=== PATIENT | male | born 1955 | race Caucasian/White ===

== ENCOUNTER 2023-09-28 02:46 | Outpatient (CLI) | payer MEDICARE, SELFPAY ==
--- OUTSIDE RECORDS SUMMARY | 2023-09-28 02:47 | XMS_ITS | Clinical Summary ---
Author Organization [facility] Address [address] [place] [address] Care Team Providers Care Superintendent Oil Field Drilling Name Role Phone Unknown, Provider MD Primary Care Provider Allergies Active Allergy Reactions Criticality Noted Date Comments [place] 12/02/2019 Other reaction(s): Facial swelling, Itchy eyes Shellfish Derived High 06/14/2017 Other reaction(s): itchy mouth, swelling CIS - Anaphylaxis Medications Medication Sig Dispensed Refills Start Date End Date Status omeprazole (PRILOSEC) 20 mg capsule Take 1 Capsule by mouth daily. Active zinc sulfate (ZINCATE) 50 mg zinc (220 mg) capsule Take 1 Capsule by mouth daily. Active Turmeric, Bulk, (CURCUMIN) 95 % powder Ac tive sildenafiL (REVATIO) 20 mg tablet Take by mouth as needed. 11/23/2020 Active multivitamin (TAB-A-GILMER) tablet Take 1 Tablet by mouth daily. Active Lysine 500 mg tablet Take 1 tab daily Active Lactobacillus acidophilus 10 billion cell capsule Take by mouth. Active Cholecalciferol, Vitamin D3, 25 mcg (1,000 unit) capsule Take by mouth. 11/23/2020 Active Active Problems No known active problems Encounters Date Type Department Care Team Description 08/23/2023 14:30 EDT Office Visit [facility] General Surgery - Main [address] [phone] Usama Garrett MD Left inguinal hernia (Primary Dx) from Last 3 Months Immunizations Name Administration Dates Next Due Covid-19 Ad26 Vaccine (JANSS EN COVID-19) PF 0.5 ml IM (18 yrs+) 11/24/2020 Surgical History Surgery Date Site/Laterality Comments UPPER GI ENDOSCOPY TONSILLECTOMY Medical History Medical History Date Comments Folrence esophagus GERD (gastroesophageal reflux disease) Family History Medical History Relation Comments Arthritis Mother Cancer Mother Depression Mother Relation Status Comments Mother Social History Tobacco Use Types Packs/Day Years Used Date Smoking Tobacco: Former Smokeless Tobacco: Never Tobacco Cessation:Counseling Given: Not Answered Alcohol Use Standard Drinks/Week Comments Yes 0 (1 standard drink = 0.6 oz pur e alcohol) reg Interpersonal Safety Answer Date Record ed Physically Hurt Never 10/06/2019 Verbally Threaten Not on file 10/06/2019 Sex and Gender Information Value Date Recorded Sex Assigned at Not on file Gender Identity Not on file Sexual Orientation Not on file Obstetrics History Last Filed Vital Signs Vital Sign Reading Time Taken Comments Blood Pressure 130/80 08/23/2023 1409 EDT Pulse 60 08/23/2023 1409 EDT Temperature 36.7 ??C (98 ??F) 06/13/2021 0913 EDT Respiratory Rate 18 06/13/2021 0913 EDT Oxygen Saturation 97% 06/13/2021 0913 EDT Inhaled Oxygen Concentration - - Weight 111.1 kg (245 lb) 08/23/2023 1409 EDT Height 177.8 cm (5' 10) 03/30/2022 1054 EST Body Mass Index 35.15 03/30/2022 1054 EST Plan of Treatment Health Maintenance Due Date Last Done Comments Hepatitis C Screen 1955 RSV Immunization ( o r 60+ Years) (1 - 1-dose 60+ series) 2017 Fall Risk Screening 2022 COVID-19 Vaccine ( season) 2022 Care Teams Superintendent Oil Field Drilling Relationship Specialty Start Date End Date Unknown, Provider, PCP - General 04/26/23
--- OUTSIDE RECORDS SUMMARY | 2023-09-28 02:47 | XMS_ITS | Encounter Summary ---
Author Organization [facility] Address [facility] [place] [address] Care Team Providers Care Supervisor Operations Name Role Phone Brandin Koenig MD Primary Care Provider [phone] Reason for Visit * Reason Onset Date Comments Results 10/19/2011 Encounter Details Date Type Department Care Team (Late st Contact Info) Description 10/19/2011 [place] [id number] Lorenzo James MD [facility] DR [place] [address] Results Social History Tobacco Use Types Packs/Day Years Used Date Smoking Tobacco: Former Alcohol Use Standard Drinks/Week Comments Yes 0 (1 standard drink = 0.6 oz pur e alcohol) occasionally Sex and Gender Information Value Date Recorded Sex Assigned at Not on file Gender Identity Not on file Sexual Orientation Not on file documented as of this encounter Miscellaneous Notes * Telephone Encounter - Lorenzo James MD - 10/19/2011 11:45 AM EDT Called Mr. Cazares to discuss his path results - indefinite for dysplasia. Will repeat the EGD for surveillance in 1 year documented in this encounter Plan of Treatment Not on file documented as of this encounter Visit Diagnoses Not on filedocumented in this encounter Care Teams Supervisor Operations Relationship Specialty Start Date End Date Brandin Koenig MD [address] [place] [address] PCP - General 01/26/10 09/30/19 documented as of this encounter
--- OUTSIDE RECORDS SUMMARY | 2023-09-28 02:47 | XMS_ITS | Referral Summary ---
Author Organization [facility] Address [address] [place] [address] Care Team Providers Care Refrigeration Lead Name Role Phone Unknown, Provider MD Primary Care Provider Encounters Date Type Department Care Team Description 08/23/2023 14:30 EDT Office Visit [facility] General Surgery - [address] [phone] Usama Garrett MD Left inguinal hernia (Primary Dx) from Last 3 Months Allergies Active Allergy Reactions Criticality Noted Date Comments [place] 12/02/2019 Other reaction(s): Facial swelling, Itchy eyes [...] Active Active Problems No known active problems Immunizations Name Administration Dates Next Due Covid-19 Ad26 Vaccine (JANSS EN COVID-19) PF 0.5 ml IM (18 yrs+) 11/24/2020 Social History Tobacco Use Types Packs/Day Years [...] on file Sexual Orientation Not on file Last Filed Vital Signs Vital Sign Reading Time Taken Comments Blood Pressure 130/80 08/23/2023 1409 EDT Pulse 60 08/23/2023 1409 EDT Temperature 36.7 ??C (98 ??F) 06/13/2021 0913 EDT Respiratory Rate 18 06/13/2021 0913 EDT Oxygen Saturation 97% 06/13/2021 09 EDT Inhaled Oxygen Concentration - - Weight 111.1 kg (245 lb) 08/23/2023 1409 EDT Height 177.8 cm (5' 10) 03/30/2022 1054 EST Body Mass Index 35.15 03/30/2022 1054 EST Functional Status Functional Status Response Date of Assess ment Because of a physical, menta l, or emotional condition, does this person have difficulty doing errands alone such as visiting a doctor's office or shopping? No 08/23/2023 Cognitive Status Response Date of Assessm ent Because of a physical, menta l, or emotional condition, does this person have serious difficulty concentrating, remembering, or making decisions? No 08/23/2023 Plan of Treatment Not on file Remy Cazares Personal/Family Self 1955 [facility] [place] [address] Remy Cazares Personal/Family Self 1955 [facility] [place] [address] Remy Cazares Personal/Family Self 1955 [facility] [place] [address] Remy Cazares Personal/Family Self 1955 [facility] [place] [address] Remy Cazares Personal/Family Self 1955 [facility] [place] [address] Care Teams Refrigeration Lead Relationship Specialty Start Date End Date Unknown, Provider, PCP - General 04/26/23
--- OUTSIDE RECORDS SUMMARY | 2023-09-28 02:47 | XMS_ITS | Encounter Summary ---
Author Organization [facility] Address [facility] [place] [address] Care Team Providers Care Motorcycle Repairer Name Role Phone Sheree Marcano MD Primary Care Provider [phone] Encounter Details Date Type Department Care Team (Late st Contact Info) Description 09/15/2009 Orders [place] [address] Yossi Copeland MD [facility] DR [place] [address] Social History Tobacco Use Types Packs/Day Years Used Date Smoking Tobacco: Never Assessed Sex and Gender Information Value Date Recorded Sex Assigned at Not on file Gender Identity Not on file Sexual Orientation Not on file documented as of this encounter Plan of Treatment Not on file documented as of this encounter Procedures Procedure Name Priority Date/Time Associated Diagnosis Comments SURGICAL PATHOLOGY REPORT Routine 09/15/2009 6:48 PM EDT documented in this encounter Results * Surgical Pathology Report (09/15/2009 6:48 PM EDT) Surgical Pathology Report [id number] ? Location: 4T The signing pathologist has (i) examined the relevant preparation(s) for the specimen(s) and (ii) rendered or confirmed the diagnosis(es). . ?Pathology Surgical Pathology Final Report Clinical Information Specimen Submitted: A - Esophagus 39 to 38 cm; Distal esophagus B - Esophagus 37 to 35 cm; Esophagus Clinical History: Florence's Clinical Diagnosis: Screening, Florence's, GERD Gross Description A - Labeled/Fixativ e: 1 esophagus 39-38 cm distal esophagus, formalin. Qty/Size/Weight : ?Fourteen, ranging from 0.2 cm to 0.5 cm in greatest ?dimension. Tissue Description: ?? Soft, harrington tissues. Sections/Proces sing: ??(T4) B - Labeled/Fixativ e: 2 esophagus 37-35 cm esophagus, formalin. Qty/Size/Weight : ?Ten, ranging from 0.2 cm to 0.4 cm in greatest ?dimension. Tissue Description: ?? Soft, red-harrington tissues. Sections/Proces sing: ??(T3) ??aje/CJL Microscopic Description Slides reviewed, microscopic description not recorded. 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 ??No dysplasia is seen. 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 ??No dysplasia is seen. CR-0 09/18/09 JLK 09/18/09 Verified by: ? Wilfrido Singletary MD ?Pathologist ?(Electronic Signature) The attending pathologist whose signature appears on this report has reviewed all diagnostic slides and has edited the gross and/or microscopic portion of the report in rendering the final pathologic diagnosis. [facility] 09/15/2009 6:48 PM EDT Yossi Puri MD PATHOLOGY/CYTOLO GY ORDERABLES Performing Organization Address City/State/[facility] Co [place] Phone Number [facility] documented in this encounter Visit Diagnoses Not on filedocumented in this encounter Care Teams Motorcycle Repairer Relationship Specialty Start Date End Date Sheree Marcano MD [address] [place] [address] PCP - General Family Medicine 10/01/19 documented as of this encounter
--- OUTSIDE RECORDS SUMMARY | 2023-09-28 02:47 | XMS_ITS | Encounter Summary ---
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 [address] EGD WITH BIOPSY (WRVU 2.39) Social History Tobacco Use Types Packs/Day Years Used Date Smoking Tobacco: Former Smokeless Tobacco: Never Tobacco Cessation:Counseling Given: Not Answered Alcohol Use Standard Drinks/Week Comments Not Currently 1 (1 standard drink = 0.6 oz pur e alcohol) 4-5 per month Sex and Gender Information Value Date Recorded Sex Assigned at Not on file Gender Identity Not on file Sexual Orientation Not on file documented as of this encounter Last Filed Vital Signs Vital Sign Reading Time Taken Comments Blood Pressure 136/81 06/07/2022 1:40 PM EDT Pulse 66 06/07/2022 1:40 PM EDT Temperature 36.3 ??C (97.3 ??F) 06/07/2022 11:54 AM E DT Respiratory Rate 14 06/07/2022 1:40 PM EDT Oxygen Saturation 99% 06/07/2022 1:40 PM EDT Inhaled Oxygen Concentration - - Weight 95.3 kg (210 lb) 06/07/2022 11:54 AM EDT Height 177.8 cm (5' 10) 06/07/2022 11:54 AM EDT Body Mass Index 30.13 06/07/2022 11:54 AM EDT documented in this encounter Discharge Instructions * Discharge Instructions* Wanda Mooney RN - 06/07/2022 1:55 PM EDT Upper GI Endoscopy: What to Expect at Home Your Recovery You will be able to go home after your doctor or nurse checks to make sure you are not having any problems. You may have to stay overnight if you had treatment during the test. You may have a sore throat fora day or two after the test. This care sheet gives you a general idea about what to expect after the test. How can you care for yourself at home? Activity Rest when you feel tired. You can do your normal activities when it feels okay to do so. Diet Follow your doctor's directions for eating. Unless your doctor has told you not to, drink plenty of fluids. This helps to replace the fluids that were lost during the prep. Do not drink alcohol. Medicines Your doctor will tell you if and when you can restart your medicines. He or she will also give you instructions about taking any new medicines. If you take blood thinners, such as warfarin (Coumadin), clopidogrel (Plavix), or aspirin, be sure to talk to your doctor. He or she will tell you if and when to start taking those medicines again. Make sure that you understand exactly what your doctor wants you to do. If polyps were removed or a biopsy was done during the test, your doctor may tell you not to take aspirin or other anti-inflammatory medicines for a few days. These include ibuprofen (Advil, Motrin) and naproxen (Aleve). If you have a sore throat the day after the procedure, use an tyzz-jhv-rhpfyub spray to numb your throat. Sucking on throat lozenges and gargling with warm salt water may also help relieve your symptoms. Other instructions For your safety, do not drive or operate machinery until the medicine wears off and you can think clearly. Your doctor may tell you not to drive or operate machinery until the day after your test. Do not sign legal documents or make major decisions until the medicine wears off and you can think clearly. The anesthesia can make it hard for you to fully understand what you are agreeing to. Additional Information for Sedation Patients For patients who received sedation: You may have received medications before and/or during your procedure which effects your judgement and reaction time. Do not drive, operate machinery, drink alcoholic beverages or make important decisions for 24 hours. Be careful on stairs as you may be unsteady on your feet. You may eat a regular diet as tolerated. Do not smoke if you are alone. IV site: Slight redness or tenderness is normal, you can use a warm compress if you would like. If tenderness and/or redness increase or if foul drainage occurs, please contact your Doctor. Please call [phone] before 8pm Mon-Fri with problems, questions or concerns. If you call after 8pm or on weekends, call the Hospital at [phone] and ask to speak to the Security Patrol Driver title i instructional assistant and the motion picture operator will contact that person for you. When should you call for help? Call [phone] anytime you think you may need emergency care. For example, call if: You passed out (lost consciousness). You pass maroon or bloody stools. You have trouble breathing. Call your doctor now or seek immediate medical care if: You have pain that does not get better after you take pain medicine. You are sick to your stomach or cannot drink fluids. You have new or worse belly pain. You have blood in your stools. You have a fever. You cannot pass stools or gas. Watch closely for changes in your health, and be sure to contact your doctor if you have any problems. Where can you learn more? [email or web address] View your After Visit Summary and more online at [email or web address] If you would like to provide feedback about your hospital experience, please call the Office of Patient and Family Relations at . If you have received this After Visit Summary in error, please immediately return it in person to the department, or notify the [facility] Privacy Office by calling toll free at between the hours of 8AM and 5PM to arrange for our retrieval of the documents at no cost to you. Content Version: 12.2 ?? [id number] [employer]. Care instructions adapted under license by [facility]. If you have questions about a medical condition or this instruction, always ask your healthcare professional. [employer] disclaims any warranty or liability for your use of this information. * Patient Instructions* Rehana Copeland MD - 06/07/2022 1:44 PM EDT Please see Recommendations in the Provation procedure report which is documented in the procedural note in E-DH. documented in this encounter Medications at Time of Discharge Medication Sig Dispensed Refills Start Date End Date vvytkyl-hnzr-hbipo-oreg-ca pryl 100 mg-150 mg- 50 mg-150 mg Capsule Take by mouth. multivitamin (THERAGRAN) Tablet Take 1 tablet by mouth daily. zinc sulfate (ZINCATE) 220 (50) mg Capsule Take 220 mg by mouth daily. omeprazole (PRILOSEC OTC) 20 mg tablet 09/15/2009 documented as of this encounter H&P Notes * Rehana Copeland MD - 06/07/2022 1:15 PM EDT Gastroenterology and Hepatology Pre-Procedure History and Physical Exam Procedure: Upper endoscopy Indication: Florence's esophagus, GERD There is no problem list on file for this patient. EXAM: HEENT: Airway examined, oropharynx clear Mallampati Score: I (soft palate, uvula, fauces, tonsillar pillars visible) LUNGS: Clear to auscultation HEART: Regular rate and rhythm, normal S1, S2 ABDOMEN: Normal bowel sounds, soft, non tender, non distended, A/P Proceed with the planned endoscopic procedure. ASA 1 - Normal health patient Sedation Plan: moderate (conscious sedation) Risks and benefits of the procedure explained to the patient. Consent signed. 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 Full procedure note is documented under the Procedure section of eDH. 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 - 06/07/2022 1:44 PM EDT Specimen requisition ordered. ??Separate Pathology report to follow Rehana Puri MD PATHOLOGY/CYTOLO GY ORDERABLES Performing Organization Address [facility] [address] * Specimen to Pathology (06/07/2022 1:44 PM EDT) AP Specimen 06/07/2022 1:44 PM EDT 06/07/2022 1:[address] [facility] - 06/07/2022 1:44 PM EDT Specimen requisition ordered. ??Separate Pathology report to follow Rehana Puri MD PATHOLOGY/CYTOLO GY ORDERABLES Performing Organization Address [facility] de Phone Number [facility] [place] [place] [address] * Surgical Pathology Report (06/07/2022 1:29 PM EDT) Pathologist [facility] FINAL DIAGNOSIS (AP) [id number] ? Location: 4T; 08; A The signing pathologist has (i) examined the relevant preparation(s) for the specimen(s) and (ii) rendered or confirmed the diagnosis(es). . ? Addendum ADDENDUM DISCUSSION A WATS 3D report ( dated 06/14/2022) on specimen C has been received. For the full text of the WATS 3D report(s), please refer to the Chart Review Media tab in the electronic health record (eDH). Electronically signed by: ?Sofiya MORRIS PhD, Brigette Verified: ??08/03/2022 11:11 ??Pathologist Performed at: ??-[facility] Dept. of Pathology, [place] [address] Plug Stitcher: Shari Zapata MD, FCAP, ??CLIA Certificate: [id number] ?Surgical Pathology DIAGNOSIS A - Esophagus biopsies at 37cm-36cm, biopsy (Multiple): - ??Florence's esophagus, negative for dysplasia. B - Esophagus biopsies at 35cm-34cm, biopsy (Multiple): - ??Florence's esophagus, negative for dysplasia. Electronically signed by: ?Gemini MORRIS, [facility] Verified: ??06/27/2022 16:21 ??Pathologist Performed at: ??-[facility] Dept. of Pathology, [place] [address] Plug Stitcher: Shari Zapata MD, AP, ??CLIA Certificate: [id number] SPECIMEN(S) SUBMITTED A - Esophagus biopsies at 37cm-36cm, biopsy (Multiple) B - Esophagus biopsies at 35cm-34cm, biopsy (Multiple) CLINICAL INFORMATION History of Florence's, GERD SPECIMEN PROCESSING A - Labeled/Fixativ e: Esophagus biopsies at 37-36 cm, formalin. Quantity/Size: Multiple, 0.2 cm. Tissue Description: Soft, harrington-pink tissues. Sections/Proces sing: Entirely submitted in 2 cassettes labeled A1-A2. B - Labeled/Fixativ e: Esophagus biopsies at 35-34 cm, formalin. Quantity/Size: Multiple, 0.2-0.4 cm. Tissue Description: Soft, harringtno-pink tissues. Sections/Proces sing: Entirely submitted in 2 cassettes labeled B1-B2. ??pps 08/03/2022 11:[address] [facility] 06/07/2022 1:29 PM EDT Rehana Puri MD PATHOLOGY/CYTOLO GY ORDERABLES [facility] [place] [address] * UPPER GI ENDOSCOPY (06/07/2022 12:46 PM EDT) Pathologist [facility] UPPER GI ENDOSCOPY [facility] Endoscopy ___ Procedure Date: 06/07/2022 12:46 PM ? Patient Name: Remy Cazares ? Date of : 1955 ? Age: 66 ? Order #: [id number] ? Instrument Name: [id number] ? ___ Procedure: ? Upper GI endoscopy Indications: ? Follow-up of gastro-esophageal ? reflux disease, Follow-up of ? Florence's esophagus Providers: ? Rehana Copeland MD, Kristina ? Jeffry Ortega Referring : ?Sheree Curran Martin Medicines: ? Midazolam 4 mg IV, Fentanyl 100 ? micrograms IV, Benzocaine spray Complications: ? No immediate complications. ___ Procedure: ? Pre-Anesthesia Assessment: ? - Prior to the procedure, a History ? and Physical was performed, and ? patient medications, allergies and ? sensitivities were reviewed. The ? patient's tolerance of previous ? anesthesia was reviewed. ? - The risks and benefits of the ? procedure and the sedation options ? and risks were discussed with the ? patient. All questions were ? answered and informed consent was ? obtained. ? - Abdominal Examination: bowel ? sounds present, abdomen soft and ? non-tender, no masses or ? organomegaly noted. ? - CV Examination: normal. ? - Mental Status Examination: alert ? and oriented. ? - Respiratory Examination: clear to ? auscultation. ? - ASA Grade Assessment: I - A ? normal, healthy patient. ? - After reviewing the risks and ? benefits, the patient was deemed in ? satisfactory condition to undergo ? the procedure. ? - The anesthesia plan was to use ? moderate sedation/analgesia ? (conscious sedation). ? - Immediately prior to ? administration of medications, the ? patient was re-assessed for ? adequacy to receive sedatives. ? - Sedation was administered by an ? endoscopy nurse. The sedation level ? attained was moderate. ? - The heart rate, respiratory rate, ? oxygen saturations, blood pressure, ? adequacy of pulmonary ventilation, ? and response to care were monitored ? throughout the procedure. ? - The physical status of the ? patient was re-assessed after the ? procedure. ? The procedure, indications, ? benefits, risks and alternatives ? were explained to the patient. ? Specifically discussed were ? potential complications including, ? but not limited to, bleeding, ? perforation, infection, missing a ? cancer, and adverse medication ? reactions. The Endoscope was ? introduced through the mouth, and ? advanced to the second part of ? duodenum The upper GI endoscopy was ? accomplished without difficulty. ? The patient tolerated the procedure ? well. ? Findings: ? The esophagus and gastroesophageal junction were ? examined with white light and narrow band imaging ? (NBI) from a forward view and retroflexed position. ? There were esophageal mucosal changes secondary to ? established short-segment Florence's disease. These ? changes involved the mucosa at the upper extent of ? the gastric folds (37 cm from the incisors) extending ? to the Z-line (34 cm from the incisors). Mucosa was ? biopsied with a cold forceps for histology. A total ? of 2 specimen bottles were sent to pathology. ? Brushings for cytology were obtained in the distal ? esophagus. ? A small hiatal hernia was found. The proximal extent ? of the gastric folds (end of tubular esophagus) was ? 37 cm from the incisors. The hiatal narrowing was 40 ? cm from the incisors. ? The examined duodenum was normal. ? Moderate Sedation: ? Moderate (conscious) sedation was administered by the ? endoscopy nurse and supervised by the endoscopist. ? The following parameters were monitored: oxygen ? saturation, heart rate, blood pressure, and response ? to care. 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 ? Biopsied. Brushings performed. ? - Small hiatal hernia. ? - Normal examined duodenum. Recommendation: ?- Continue present medications. ? - Await pathology results. ? - Repeat upper endoscopy in 5 years ? for surveillance. ? Attending Participation: ? I personally performed the entire procedure. I was ? present during the intraservice time as documented by ? the sedation RN. ? Rehana Copeland MD 06/07/2022 1:51:43 PM This report has been signed electronically. Number of Addenda: 0 Note Initiated On: 06/07/2022 12:46 PM PROVATION 06/07/2022 12:4 6 PM EDT Sheree Marcano MD GENERAL SURGICAL O RDERABLES PROVATION documented in this encounter Visit Diagnoses Not on filedocumented in this encounter Administered Medications Inactive Administered Medications - up to 3 most recent administrations Medication Order MAR Action Action Date Dose Rate Site benzocaine (Hurricane One) 20% spray (restricted to jin-procedural use) ONCE PRN, Starting on Mon06/07/22 at 1320, Until Mon06/07/22 at 1702, Intra-Operative (Intra-Procedure) Given 06/07/2022 1:20 PM EDT 1 spray fentaNYL (pf) (50 mcg/mL) multi-dose injection ONCE PRN, Starting on 06/07/22 at 1319, Until 06/07/22 at 1702, Intra-Operative (Intra-Procedure), Routine Given 06/07/2022 1:25 PM EDT 25 mcg Given 06/07/2022 1:22 PM EDT 25 mcg Given 06/07/2022 1:19 PM EDT 50 mcg lactated ringers infusion 100 mL/hr, Intravenous, CONTINUOUS, Starting on 06/07/22 at 1215, Until 06/07/22 at 1702, Endoscopy (Day of Procedure) New Bag 06/07/2022 12:07 PM EDT 100 mL/hr 100 mL/hr midazolam (pf) (Versed) (1 mg/mL) multi-dose injection ONCE PRN, Starting on 06/07/22 at 1319, Until 06/07/22 at 1702, Intra-Operative (Intra-Procedure), Routine Given 06/07/2022 1:34 PM EDT 1 mg Given 06/07/2022 1:25 PM EDT 1 mg Given 06/07/2022 1:22 PM EDT 1 mg documented in this encounter Active and Recently Administered Medications Times are shown in EDT. Continuous Medication Order 06/05/2022 06/06/2022 06/07/2022 lactated ringers infusion 100 mL/hr, Intravenous, CONTINUOUS, Starting on 06/07/22 at 1215, Until 06/07/22 at 1702, Endoscopy (Day of Procedure) 1207 (New Bag - Prov ider: Fatemeh Guzman RN) PRN Medication Order 06/05/2022 06/06/2022 06/07/2022 benzocaine (Hurricane One) 20% spray (restricted to jin-procedural use) (CANCELED) ONCE PRN, Starting on 06/07/22 at 1320, Until 06/07/22 at 1702, Intra-Operative (Intra-Procedure) 1320 (Given - Provid er: Kristina Ortega RN) fentaNYL (pf) (50 mcg/mL) multi-dose injection (CANCELED) ONCE PRN, Starting on Mon06/07/22 at 1319, Until Mon06/07/22 at 1702, Intra-Operative (Intra-Procedure), Routine 1319 (Given - Provid er: Kristina Ortega RN)1322 (Given - Provider: Kristina Ortega RN)1325 (Given - Provider: Kristina Ortega RN) midazolam (pf) (Versed) (1 mg/mL) multi-dose injection (CANCELED) ONCE PRN, Starting on Mon06/07/22 at 1319, Until Mon06/07/22 at 1702, Intra-Operative (Intra-Procedure), Routine 1319 (Given - Provid er: Kristina Ortega RN)1322 (Given - Provider: Kristina Ortega RN)1325 (Given - Provider: Kristina Ortega RN)1334 (Given - Provider: Kristina Ortega RN) documented in this encounter Care Teams Chalker Soles Relationship Specialty Start Date End Date Sheree Marcano MD [address] [place] [address] PCP - General Family Medicine 10/01/19 documented as of this encounter
--- OUTSIDE RECORDS SUMMARY | 2023-09-28 02:47 | XMS_ITS | Clinical Summary ---
Author Organization [facility] Address [facility] [place] [address] Care Team Providers Care Rn Call Center Name Role Phone Sheree Marcano MD Primary Care Provider +1- [phone] Allergies Active Allergy Reactions Criticality Noted Date Comments Shellfish Derived High CIS - Anaphylaxis Medications Medication Sig Dispensed Refills Start Date End Date Status omeprazole (PRILOSEC OTC) 20 mg tablet 09/15/2009 Active multivitamin (THERAGRAN) Tablet Take 1 tablet by mouth daily. Active zinc sulfate (ZINCATE) 220 (50) mg Capsule Take 220 mg by mouth daily. Active zpjrzai-abca-ksvav-ore g-capryl 100 mg-150 mg- 50 mg-150 mg Capsule Take by mouth. Active Social History Tobacco Use Types Packs/Day Years [...] Sign Reading Time Taken Comments Blood Pressure 133/73 06/07/2022 1:51 PM EDT Pulse 66 06/07/2022 1:40 PM EDT Temperature 36.3 ??C (97.3 ??F) 06/07/2022 11:54 AM E DT Respiratory Rate 19 06/07/2022 2:00 PM EDT Oxygen Saturation 97% 06/07/2022 1:51 PM EDT Inhaled Oxygen Concentration - - Weight 95.3 kg (210 lb) 06/07/2022 11:54 AM EDT Height 177.8 cm (5' 10) 06/07/2022 11:54 AM EDT Body Mass Index 30.13 06/07/2022 11:54 AM EDT Plan of Treatment Health Maintenance Due Date Last Done Comments CT Colonography 1955 Colonoscopy 1955 Colorectal Cancer Screening 1955 FIT DNA 1955 FIT 1955 Sigmoidoscopy (10 year) with FIT yearly 1955 Sigmoidoscopy 1955 HIV screen 10/29/1975 Hepatitis C Screening 10/29/1975 Lipid Screening 10/29/1975 Tdap adult 1976 Tetanus vaccine 1976 Diabetes Screening (HgbA1C or Glucose) 1997 Zoster vaccine (1 of 2) 10/29/2007 Pneumoccocal Vaccine: 65+ (1 of 1 - PCV) 2022 Covid-19 Vaccine (2 - season) 2022 Influenza (Flu) vaccine (1 o f 1 - Influenza standard series) 11/05/2023 Advance Directives Documents on File Type Date 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
--- OUTSIDE RECORDS SUMMARY | 2023-09-28 02:47 | XMS_ITS | Encounter Summary ---
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 [address] Discharge Disposition: Home Social History Tobacco Use Types Packs/Day Years [...] the day after the procedure, use an kssi-irk-xgbhcuj spray to numb your throat. Sucking on [...] occurs, please contact your Doctor. Please call [phone] before 8pm Mon-Fri with problems, questions or concerns. If you call after 8pm or on weekends, call the Hospital at [phone] and ask to speak to the Street Openings Inspector communications representative and the dowel inserting machine operator will contact that person for you. When should you call for help? Call [phone] anytime you think you may need emergency [...] any problems. Where can you learn more? [facility] View your After Visit Summary and more online at [email or web address] If you would like to provide [...] cost to you. Content Version: 12.2 ?? [id number] [employer]. Care instructions adapted under license by [facility]. If you have questions about a medical condition or this instruction, always ask your healthcare professional. [employer] disclaims any warranty or liability for your use of this information. * Patient Instructions* Yossi Copeland MD - 06/07/2022 1:44 PM EDT Please see Recommendations in the Provation procedure report which is documented in the procedural note in E-DH. documented in this encounter Medications at Time of Discharge Medication Sig Dispensed Refills Start Date End Date wbgjayi-hqaz-euebp-oreg-ca pryl 100 mg-150 mg- 50 mg-150 mg Capsule Take by mouth. multivitamin (THERAGRAN) Tablet Take 1 tablet by mouth daily. zinc sulfate (ZINCATE) 220 (50) mg Capsule Take 220 mg by mouth daily. omeprazole (PRILOSEC OTC) 20 mg tablet 09/15/2009 documented as of this encounter H&P Notes * Yossi Copeland MD - 06/07/2022 1:15 PM EDT [...] encounter Miscellaneous Notes * Op Note - Yossi Copeland MD - 06/07/2022 1:[address] 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 Full procedure note is documented under the Procedure section of eDH. 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 ??Separate Pathology report to follow Yossi Puri MD PATHOLOGY/CYTOLO GY ORDERABLES Performing Organization Address [facility] [place] [address] * Specimen to Pathology (06/07/2022 1:44 PM EDT) AP Specimen 06/07/2022 1:44 PM EDT 06/07/2022 1:44 PM EDT Narrative [facility] - 06/07/2022 1:44 PM EDT Specimen requisition ordered. ??Separate Pathology report to follow Yossi Puri MD PATHOLOGY/CYTOLO GY ORDERABLES Performing Organization Address [facility] de Phone Number [facility] [place] [place] [address] * Surgical Pathology Report (06/07/2022 1:29 PM EDT) Pathologist [facility] FINAL DIAGNOSIS (AP) [id number] ? Location: 4T; EA08; A The signing pathologist has (i) examined [...] Brigette Verified: ??08/03/2022 11:11 ??Pathologist Performed at: ??-[facility] Dept. of Pathology, [place] [address] Controls Engineer: Shari Zapata MD, FCAP, ??CLIA Certificate: [id number] ?Surgical Pathology DIAGNOSIS A - Esophagus biopsies at 37cm-36cm, biopsy (Multiple): - ??Florence's esophagus, negative for dysplasia. B - Esophagus biopsies at 35cm-34cm, biopsy (Multiple): - ??Florence's esophagus, negative for dysplasia. Electronically signed by: ?Wilfrido Singletary MD Verified: ??06/27/2022 16:21 ??Pathologist Performed at: ??-[facility] Dept. of Pathology, [place] [address] Controls Engineer: Shari Zapata MD, SONJA, ??CLIA Certificate: [id number] SPECIMEN(S) SUBMITTED A - Esophagus biopsies at [...] Quantity/Size: Multiple, 0.2-0.4 cm. Tissue Description: Soft, harrington-pink tissues. Sections/Proces sing: Entirely submitted in 2 cassettes labeled B1-B2. ??pps 08/03/2022 11:11 AM EDT [facility] 06/07/2022 1:29 PM EDT Yossi Puri MD PATHOLOGY/CYTOLO GY [place] [address] * UPPER GI ENDOSCOPY (06/07/2022 12:46 PM EDT) UPPER GI ENDOSCOPY [facility] Endoscopy ___ Procedure Date: 06/07/2022 12:46 PM ? Patient Name: Remy Cazares ? Date of : 1955 ? Age: 66 ? Order #: [id number] ? Instrument Name: [id number] ? ___ Procedure: ? Upper GI endoscopy Indications: ? Follow-up of gastro-esophageal ? reflux disease, Follow-up of ? Florence's esophagus Providers: ? Yossi Copeland MD, Kristina ? Jeffry Ortega Referring : ?Sheree Curran [place] Medicines: ? Midazolam 4 mg IV, Fentanyl [...] documented by ? the sedation RN. ? Yossi Copeland MD 06/07/2022 1:51:43 PM This report [...] MAR Action Action Date Dose Rate Site lactated ringers infusion 100 mL/hr, Intravenous, CONTINUOUS, Starting on Mon06/07/22 at 1215, Until Mon06/07/22 at 1702, Endoscopy (Day of Procedure) New Bag 06/07/2022 12:07 PM EDT 100 mL/hr 100 mL/hr documented in this encounter Active and Recently Administered Medications Times are shown in EDT. Continuous Medication Order 06/05/2022 06/06/2022 06/07/2022 lactated ringers infusion 100 mL/hr, Intravenous, CONTINUOUS, Starting on Mon06/07/22 at 1215, Until Mon06/07/22 at 1702, Endoscopy (Day of Procedure) 1207 (New Bag - Prov ider: Fatemeh Guzman RN) PRN Medication Order 06/05/2022 06/06/2022 06/07/2022 benzocaine (Hurricane One) 20% spray (restricted to jin-procedural use) (CANCELED) ONCE PRN, Starting on Mon06/07/22 at 1320, Until Mon06/07/22 at 1702, Intra-Operative (Intra-Procedure) 1320 (Given - [...] Kristina Ortega RN)1322 (Given - Provider: Kristina Ortega, RN)1325 (Given - Provider: Kristina Ortega, RN)1334 (Given - Provider: Kristina Ortega RN) documented in this encounter Care Teams Millinery Designer Relationship Specialty Start Date End Date Sheree Marcano MD [address] [place] [id number] PCP - General Family Medicine 10/01/19 documented as of this encounter
--- OUTSIDE RECORDS SUMMARY | 2023-09-28 02:47 | XMS_ITS | Encounter Summary ---
Author Organization [facility] [place] [address] Care Team Providers Care Education Spec Name Role Phone Brandin Koenig MD Primary Care Provider [phone] Encounter Details Date Type Department Care Team (Late st Contact Info) Description 04/15/2019 Telephone [place] [address] Yaneth Bhat Social History Tobacco Use Types Packs/Day Years Used Date Smoking Tobacco: Former Smokeless Tobacco: Never Alcohol Use Standard Drinks/Week Comments Yes 3 (1 standard drink = 0.6 oz pur e alcohol) occasionally Sex and Gender Information Value Date Recorded Sex Assigned at Not on file Gender Identity Not on file Sexual Orientation Not on file documented as of this encounter Miscellaneous Notes * Telephone Encounter - Yaneth Bhat - 04/15/2019 2:28 PM EST Remy Cazares [id number] Diagnosis/Indication: COLO 1. Have you ever had a/an Colonoscopy before? Yes: Date 09/15/09 If yes, did you have any problems with the procedure? No What type of sedation was used: IV Conscious Sedation 2. Do you take any Blood Thinners? No 3. Do you have a Pacemaker or Defibrillator device? No 4. Are you a diabetic? No 5. Do you have any Allergies to Eggs, Latex or Medications? No 6. Do you take any Oral Iron Supplements (Including multi-vitamins)? Yes (Multivitamin) 7. Do you have a history of three or more abdominal surgeries? No 8. Have you had a problem with sedation or anesthesia? No 9. Do you have a c-pap machine or oxygen tank? Neither 10. Do you take prescription narcotic pain medications? No 11. Do you have a preference regarding the gender of your provider? No Preference 12. Is there any other information you would like to give us to aid in scheduling? No 13. Say to patient: You must have a responsible republican who will drive you to your procedure, stay [place] for the entire duration of your procedure, and drive you home from your procedure? Height: 5'11 Weight: 220 BMI: 30.7 Age:63 y.o. documented in this encounter Plan of Treatment Not on file documented as of this encounter Visit Diagnoses Not on filedocumented in this encounter Care Teams Education Spec Relationship Specialty Start Date End Date Brandin Koenig MD [address] [place] [address] PCP - General 01/26/10 09/30/19 documented as of this encounter
--- OUTSIDE RECORDS SUMMARY | 2023-09-28 02:47 | XMS_ITS | Encounter Summary ---
Author Organization [facility] [place] [address] Care Team Providers Care Wind Turbine Mechanic Name Role Phone Sheree Marcano MD Primary Care Provider [phone] Encounter Details Date Type Department Care Team (Late st Contact Info) Description 07/13/2022 External [place] [id number] Provider, Scanning Social History Tobacco Use Types Packs/Day Years Used Date Smoking Tobacco: Former Smokeless Tobacco: Never Alcohol Use Standard Drinks/Week Comments Not Currently [...] Priority Date/Time Associated Diagnosis Comments SURGICAL PATHOLOGY SCAN Routine 07/13/2022 documented in this encounter Results * Scan Doc: Surgical Pathology (07/13/2022) Historical Provider MD OCONNOR MGR SCAN EX T ORDR/RSLT documented in this encounter Visit Diagnoses Not on filedocumented in this encounter Care Teams Wind Turbine Mechanic Relationship Specialty Start Date End Date Sheree Marcano MD [address] [place] [address] PCP - General Family Medicine 10/01/19 documented as of this encounter
--- OUTSIDE RECORDS SUMMARY | 2023-09-28 02:47 | XMS_ITS | Encounter Summary ---
Author Organization [facility] Address [facility] [place] [address] Care Team Providers Care Galley Boy Name Role Phone Brandin Koenig MD Primary Care Provider [phone] Encounter Details Date Type Department Care Team (Late st Contact Info) Description 10/11/2011 1:00 PM EDT - 10/11/2011 1:30 PM EDT Surgery [place] [address] Rehana Copeland MD [facility] [place] [address] UPPER GI ENDOSCOPY Social History Tobacco Use Types Packs/Day Years [...] Sign Reading Time Taken Comments Blood Pressure 110/67 10/11/2011 1:58 PM EDT Pulse 60 10/11/2011 1:58 PM EDT Temperature 36.7 ??C (98.1 ??F) 10/11/2011 12:12 PM E DT Respiratory Rate 16 10/11/2011 1:58 PM EDT Oxygen Saturation 96% 10/11/2011 1:58 PM EDT Inhaled Oxygen Concentration - - Weight - - Height - - Body Mass Index - - documented in this encounter Discharge Instructions * Discharge Instructions* Lucrecia Milian RN - 10/11/2011 2:41 PM EDT You may have received medication before and/or during your procedure which effects judgement and reaction time. Do not drive, operate machinery, drink alcoholic beverages, or make important decisions for 24 hours. Be careful on stairs, as you may be unsteady on your feet. You may eat a regular diet as tolerated. Do not smoke if you are alone. IV site-- slight redness or tenderness is normal. You may use a warm compress. If tenderness and redness increases for foul drainage occurs please contact your M.D. Please call [phone] before 5pm with problems, questions or concerns. After 5pm call [phone] and ask to speak with the [employer] forestry contractor. Discharge instructions reviewed with patient who expresses's understanding. You may have received medication before and/or during your procedure which effects judgement and reaction time. Do not drive, operate machinery, drink alcoholic beverages, or make important decisions for 24 hours. Be careful on stairs, as you may be unsteady on your feet. You may eat a regular diet as tolerated. Do not smoke if you are alone. IV site-- slight redness or tenderness is normal. You may use a warm compress. If tenderness and redness increases for foul drainage occurs please contact your M.D. Please call [phone] before 5pm with problems, questions or concerns. After 5pm call [phone] and ask to speak with the airborne [employer] forestry contractor. Discharge instructions reviewed with patient who expresses's understanding. You may have received medication before and/or during your procedure which effects judgement and reaction time. Do not drive, operate machinery, drink alcoholic beverages, or make important decisions for 24 hours. Be careful on stairs, as you may be unsteady on your feet. You may eat a regular diet as tolerated. Do not smoke if you are alone. IV site-- slight redness or tenderness is normal. You may use a warm compress. If tenderness and redness increases for foul drainage occurs please contact your M.D. Please call [phone] before 5pm with problems, questions or concerns. After 5pm call [phone] and ask to speak with the [employer] forestry contractor. Discharge instructions reviewed with patient who expresses's understanding. * Patient Instructions* Rehana Copeland MD - 10/11/2011 2:01 PM EDT Please see Recommendations in the Provation procedure report which is documented in the procedural note in E-DH. * Attachments The following attachments cannot be sent through Care Everywhere. 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 No new symptoms, GERD well controlled on PPI PMH: GERD --EGD 2009 with 4cm BE, path neg for dysplasia Medications: No current facility-administered medications on file prior to encounter. Current outpatient prescriptions ordered prior to encounter Medication Sig Dispense Refill ??? citalopram (CELEXA) 20 mg tablet ??? zolpidem (AMBIEN) 10 mg tablet ??? omeprazole (PRILOSEC OTC) 20 mg tablet Allergies: Allergies Allergen Reactions ??? Shellfish Derived CIS - Anaphylaxis Social History: Lives in [place], [place]. Works at [employer]. No smoking, drinks 6 drinks a week Family History: No GI issues Exam: Patient Vitals in the past 24 hrs: BP Temp Temp src Pulse Resp SpO2 10/11/11 1212 137/90 mmHg 36.7 ??C (98.1 ??F) Oral 74 16 97 % Airway examined Chest- clear Heart- RRR, nl s1, s2 Abdomen- normal bowel sounds, soft, non tender Assessment and Plan: Pleasant 55M with PMH of BE. Will perform EGD with esophageal biopsies to survey for dysplasia Conscious sedation. Risks and benefits of the procedure were discussed with the patient. Consent has been signed. documented in this encounter Miscellaneous Notes * Miscellaneous - Provider, Scanning - 10/12/2011 5:45 AM EDT * Miscellaneous - Provider, Scanning - 10/11/2011 2:11 PM EDT * Op Note - Rehana Copeland MD - 10/11/2011 2:00 PM EDT [facility] [place] Operative Note Patient Name: Deepa Perera : [id number] MR#: [id number] Case Date: 10/11/2011 Surgeon: Surgeon(s) and Role: * REHANA COPELAND MD - Primary * BRENDA JAMES MD - Fellow Preoperative diagnosis: Florence's - 2 yr fu Postoperative diagnosis: Florence's esophagus Procedure(s): UPPER GI ENDOSCOPY EGD WITH BIOPSY Full procedure note is documented under the Procedure section of eDH. documented in this encounter Plan of Treatment Not on file documented as of this encounter Procedures Procedure Name Priority Date/Time Associated Diagnosis Comments SURGICAL PATHOLOGY REPORT Routine 10/11/2011 4:16 PM EDT SPECIMEN TO PATHOLOGY Routine 10/11/2011 2:01 PM EDT SPECIMEN TO PATHOLOGY Routine 10/11/2011 2:01 PM EDT EGD WITH BIOPSY (WRVU 2.39) 10/11/2011 1:28 PM EDT 2 yr fu [local] UPPER GI ENDOSCOPY 10/11/2011 1: 28 PM EDT 2 yr fu [local] UPPER GI ENDOSCOPY Routine 10/11/2011 1: 22 PM EDT documented in this encounter Results * SURGICAL PATHOLOGY REPORT (10/11/2011 4:16 PM EDT) Surgical Pathology Report ? [facility] ? Provider: ?? REHANA COPELAND ??Pt. Name: ?? DEEPA PERERA ?I ? Acc #: ?[id number] ?Pt. ? Col Date: ?? 10/11/2011 ?/Sex: ?1955,(55 years),Male ? Rec Date: ?? 10/11/2011 ?LOC: ?4T ? SURGICAL PATHOLOGY ? ---Pathologic Diagnosis--- ? Endoscopic biopsies - ? A - Esophagus 38 to 37 cm: ? Florence's esophagus with crypt atypia, consistent with INDEFINITE FOR ? DYSPLASIA (see NOTE). ? Additional deeper levels examined. ? B - Esophagus 36 to 35 cm: ? Florence's esophagus with crypt atypia, consistent with INDEFINITE FOR ? DYSPLASIA (see NOTE). ? Additional deeper levels examined. ? NOTE: Dr. Singletary has kindly reviewed the case (parts A and B) and concurs ? with the above diagnoses of A and B. ? 10/17/11 ? XL ? 10/17/11 Verified by: ? William MORRIS, Candice ? Pathologist ? (Electronic Signature) ? The attending pathologist whose signature appears on this report has ? reviewed all diagnostic slides and has edited the gross and/or ? microscopic portion of the report in rendering the final pathologic ? diagnosis. ? ---Microscopic Description--- ? Slides reviewed, microscopic description not recorded. ? ---Gross Description--- ? A - Labeled/Fixative: Esophagus 38 to 37 cm, formalin. ? Qty/Size/Weight: ?Five, averaging 0.3 x 0.2 x 0.2 cm. ? Tissue Description: ?? Wispy, friable, harrington soft tissues. ? Sections/Processi ng: ??(T1) ? B - Labeled/Fixative: Esophagus 36 to 35 cm, formalin. ? Qty/Size/Weight: ?Five, averaging 0.3 x 0.2 x 0.2 cm. ? Tissue Description: ?? Friable fragments of harrington-pink soft tissue, focally ? hemorrhagic. ? Sections/Processi ng: ??(T1) ??aje/PPS ? [facility] ? Provider: ?? REHANA COPELAND ??Pt. Name: ?? DEEPA PERERA ?I ? Acc #: ?[id number] ?Pt. ? Col Date: ?? 10/11/2011 ?/Sex: ?1955,(55 years),Male ? Rec Date: ?? 10/11/2011 ?LOC: ?4T ? ---Clinical Information--- ? Specimen Submitted: ? SURGICAL PATHOLOGY ? A - Esophagus 38 to 37 cm ? B - Esophagus 36 to 35 cm ? Clinical History/Diagnosis : ? HX of nondysplastic Florence's CINDY ONEIL 10/11/2011 4:16 PM EDT Rehana Puri MD PATHOLOGY/CYTOLO GY ORDERABLES Performing Organization Address [facility] de Phone Number CINDY ONEIL * Specimen to Pathology (surgical or derm) (10/11/2011 2:01 PM EDT) AP Specimen 10/11/2011 2:01 PM EDT 10/11/2011 2:01 PM EDT Narrative CINDY VARELAIUM - 10/11/2011 2:01 PM EDT Specimen requisition ordered. ??Separate Pathology report to follow Rehana Puri MD PATHOLOGY/CYTOLO GY ORDERABLES Performing Organization Address [facility] de Phone Number CINDY ONEIL * Specimen to Pathology (surgical or derm) (10/11/2011 2:01 PM EDT) AP Specimen 10/11/2011 2:01 PM EDT 10/11/2011 2:01 PM EDT Narrative CINDY ONEIL - 10/11/2011 2:01 PM EDT Specimen requisition ordered. ??Separate Pathology report to follow Rehana Puri MD PATHOLOGY/CYTOLO GY ORDERABLES Performing Organization Address [facility] de Phone Number CINDY ONEIL * UPPER GI ENDOSCOPY (10/11/2011 1:22 PM EDT) UPPER GI ENDOSCOPY [facility] Endoscopy Patient Name: Deepa Perera ? Procedure Date: 10/11/2011 1:22 PM ? Date of : 1955 ? Age: 55 ? Order #: [id number] ? Procedure: ? Upper GI endoscopy Indications: ? Follow-up of Florence's esophagus Providers: ? Rehana Copeland MD, Brenda Ortega ? MD Jacob, Rob Hatfield RN, ? Elizabeth Morales, Medication Reconciliation Technician Referring : ?Brandin Koenig MD Medicines: ? Midazolam 4 mg IV, Fentanyl 200 ? micrograms IV, Benzocaine spray Complications: ? No immediate complications. Procedure: ? Pre-Anesthesia Assessment: ? - Prior to the procedure, a History ? and Physical was performed, and ? patient medications, allergies and ? sensitivities have been reviewed. The ? patient's tolerance of previous ? anesthesia has been reviewed. ? - The risks and benefits of the ? procedure and the sedation options ? and risks were discussed with the ? patient. All questions were answered ? and informed consent was obtained. ? - Mental Status Examination: alert ? and oriented. ? - Airway Examination: normal ? oropharyngeal airway and neck ? mobility. ? - Respiratory Examination: clear to ? auscultation. ? - CV Examination: normal. ? - ASA Grade Assessment: II - A ? patient with mild systemic disease. ? - After reviewing the risks and ? benefits, the patient was deemed in ? satisfactory condition to undergo the ? procedure. ? - The anesthesia plan was to use ? moderate sedation/analgesia ? (conscious sedation). ? - Immediately prior to administration ? of medications, the patient was ? re-assessed for adequacy to receive ? sedatives. ? - The heart rate, respiratory rate, ? oxygen saturations, blood pressure, ? adequacy of pulmonary ventilation, ? and response to care were monitored ? throughout the procedure. ? - The physical status of the patient ? was re-assessed after the procedure. ? The procedure, indications, benefits, ? risks and alternatives were explained ? to the patient. Specifically ? discussed were potential ? complications including, but not ? limited to, bleeding, perforation, ? infection, missing a cancer, and ? adverse medication reactions. The ? Endoscope was introduced through the ? mouth, and advanced to the second ? part of duodenum. The patient ? tolerated the procedure well. The ? upper GI endoscopy was accomplished ? without difficulty. ? Findings: ? There were esophageal mucosal changes secondary to ? established short-segment Florence's disease, ? extending from the upper extent of the gastric folds ? which were at 38 cm from the incisors to the Z-line ? which was at 35 cm from the incisors. No visible ? abnormalities were present. Mucosa was biopsied with ? a cold forceps for histology in 4 quadrants at 35 cm ? from the incisors at 36 cm from the incisors at 37 cm ? from the incisors at 38 cm from the incisors. Biopsy ? specimens were sent to Pathology. Estimated blood ? loss was minimal. The stomach was normal. The ? examined duodenum was normal. ? 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 ? - Normal stomach. ? - Normal examined duodenum. ? - Mucosa was biopsied in 4 quadrants ? at 35 cm from the incisors at 36 cm ? from the incisors at 37 cm from the ? incisors at 38 cm from the incisors. Recommendation: ?- Await pathology results. ? - Repeat the upper endoscopy in 3 ? years for surveillance based on ? pathology results. ? - The attending physician listed ? above was present for the entire ? procedure. ? Rehana Copeland MD 10/11/2011 2:05 PM ? Number of Addenda: 0 Note Initiated On: 10/11/2011 1:22 PM PROVATION 10/11/2011 1:22 PM EDT Brandin Koenig MD GENERAL SURGICAL ORD ERABLES PROVATION documented in this encounter Visit Diagnoses Not on filedocumented in this encounter Administered Medications Inactive Administered Medications - up to 3 most recent administrations Medication Order MAR Action Action Date Dose Rate Site benzocaine (HURRICANE) 20 % oral spray CONTINUOUS PRN, Pain, Starting on Mon10/11/11 at 1330, Until Mon10/11/11 at 1707, For Procedural use. Fulton on area for one second. May repeat if necessary. Do not exceed a spray duration of 2 seconds., Intra-Operative (Intra-Procedure) New Bag 10/11/2011 1:30 PM EDT 20 % 20-Other (document in comment section) fentaNYL 50mcg/mL injection ONCE PRN, Starting on Mon10/11/11 at 1330, Until Mon10/11/11 at 1707, Pain, Intra-Operative (Intra-Procedure), Routine Given 10/11/2011 1:36 PM EDT 50 mcg Given 10/11/2011 1:33 PM EDT 50 mcg Given 10/11/2011 1:30 PM EDT 100 mcg midazolam (VERSED) injection ONCE PRN, Starting on 10/11/11 at 1330, Until 10/11/11 at 1707, Sleep, Intra-Operative (Intra-Procedure), Routine Given 10/11/2011 1:36 PM EDT 1 mg Given 10/11/2011 1:33 PM EDT 1 mg Given 10/11/2011 1:30 PM EDT 2 mg sodium chloride 0.9% infusion 50 mL/hr, Intravenous, CONTINUOUS, Starting on 10/11/11 at 1230, Until 10/11/11 at 1707, Endoscopy (Day of Procedure) New Bag 10/11/2011 12:30 PM EDT 50 mL/hr 50 mL/hr documented in this encounter Active and Recently Administered Medications Times are shown in EDT. Continuous Medication Order 10/09/2011 10/10/2011 10/11/2011 sodium chloride 0.9% infusion (CANCELED) 50 mL/hr, Intravenous, CONTINUOUS, Starting on 10/11/11 at 1230, Until 10/11/11 at 1707, Endoscopy (Day of Procedure) 1230 (New Bag - Prov ider: Shasha Ceja RN) PRN Medication Order 10/09/2011 10/10/2011 10/11/2011 benzocaine (HURRICANE) 20 % oral spray (CANCELED) CONTINUOUS PRN, Pain, Starting on 10/11/11 at 1330, Until 10/11/11 at 1707, For Procedural use. Fulton on area for one second. May repeat if necessary. Do not exceed a spray duration of 2 seconds., Intra-Operative (Intra-Procedure) 1330 (New Bag - Prov ider: Rob Hatfield RN - Comment: 8 shots to back of throat) fentaNYL 50mcg/mL injection (CANCELED) ONCE PRN, Starting on 10/11/11 at 1330, Until 10/11/11 at 1707, Pain, Intra-Operative (Intra-Procedure), Routine 1330 (Given - Provid er: Rob Hatfield RN - Comment: start moderate sedation)1333 (Given - Provider: Rob Hatfield RN - Comment: awake after 1st dose and 3 minutes)1336 (Given - Provider: Rob Hatfield RN - Comment: grimmacing and muscle tension) midazolam (VERSED) injection (CANCELED) ONCE PRN, Starting on Mon10/11/11 at 1330, Until Mon10/11/11 at 1707, Sleep, Intra-Operative (Intra-Procedure), Routine 1330 (Given - Provid er: Rob Hatfield RN - Comment: see fentanyl same time)1333 (Given - Provider: Rob Hatfield RN - Comment: see fentanyl same time)1336 (Given - Provider: Rob Hatfield RN - Comment: see fentanyl same time) documented in this encounter Care Teams Galley Boy Relationship Specialty Start Date End Date Brandin Koenig MD [address] [place] [address] PCP - General 01/26/10 09/30/19 documented as of this encounter
--- OUTSIDE RECORDS SUMMARY | 2023-09-28 02:47 | XMS_ITS | Encounter Summary ---
[place] [address] Care Team Providers Care Porcelain Enamel Laborer Name Role Phone Brandin Koenig MD Primary Care Provider [phone] Reason for Visit * Reason Comments Results Encounter Details Date Type Department Care Team (Late st Contact Info) Description 12/12/2012 Telephone [place] [phone] Anya Brown, RN DEPT OF GASTROENTEROLOGY Results Social History Tobacco Use Types Packs/Day [...] encounter Miscellaneous Notes * Telephone Encounter - Anya Dahl RN - 12/12/2012 1:42 PM EDT Pts called requesting endoscopy and biopsy results. Telephoned pt, discussed endoscopy and biopsy results. 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 Pt verbalized understanding. documented in this encounter Plan of Treatment Not on file documented as of this encounter Visit Diagnoses Not on filedocumented in this encounter Care Teams Porcelain Enamel Laborer Relationship Specialty Start Date End Date Brandin Koenig MD [address] [place] [address] PCP - General 01/26/10 09/30/19 documented as of this encounter
--- OUTSIDE RECORDS SUMMARY | 2023-09-28 02:47 | XMS_ITS | Encounter Summary ---
Author Organization [facility] Address [facility] [place] [address] Care Team Providers Care Policy Director Name Role Phone Sheree Marcano MD Primary Care Provider [phone] Encounter Details Date Type Department Care Team (Late st Contact Info) Description 03/24/2022 Telephone Gastroenterology at [facility] [place] [id number] Candy Prasad Social History Tobacco Use Types Packs/Day Years [...] encounter Miscellaneous Notes * Telephone Encounter - Candy Prasad - 03/24/2022 11:38 AM EST Remy Cazares [id number] Diagnosis/Indication: 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 If yes, take note of Anesthesia type used. If previous procedure found, and with MAC/propofol Anesthesia support was used, schedule this procedure with Anesthesia and skip the Anesthesia portion of questions. If not performed within system, not performed at all, or performed with IVCS, ask Anesthesia questions. SCHEDULING QUESTIONS (ask all patient these questions) 1. Have you ever had a/an Upper Endoscopy before? Yes: Date 03/14/2017 If yes, did you have any problems with the procedure (such as waking up during the procedure, pain or difficulties afterwards, etc.)? No What type of sedation was used: IV Conscious Sedation 2. Do you take any blood thinners or have you been diagnosed with a bleeding disorder that increases your risk of bleeding with procedures? No 3. Do you have a Pacemaker or Defibrillator device? If yes, send pool message to Cardiology with patient information and date or procedure. No 4. Are you a diabetic? If yes, call PCP/managing provider to discuss use of prep and any questions or concerns related to. No 5. Do you take any iron supplements or vitamins that contain iron? Yes 6. Do you have a preference regarding the gender of your provider? Yes Min ANESTHESIA QUESTIONS (YES to any question, please book with Anesthesia support) 7. Have you ever been diagnosed with Pulmonary Hypertension and/or Congential Heart Disease? No 8. Have you been diagnosed with A-Fib (atrial fibrillation) that is NOT being well controled with medications? No 9. Have you ever had an allergic or adverse reaction to Fentanyl or Versed? No 10. Have you had a problem with sedation or anesthesia? (Waking up during procedure, extreme confusion after, etc.) No 11. Do you have a diagnosis of Obstructive Sleep Apnea that requires the use of a c-pap machine? No 12. Do you use an oxygen tank at home? No 13. Do you use a rescue inhaler more than twice per day? (COPD, severe asthma) No 14. Do you experience breathing problems when you lay flat for a period of time? No 15. Do you take prescription narcotic pain medications, including suboxone or methodone? No SCHEDULING CONFIRMATIONS: Please note any and all parts of your conversation with the patient here. 16. We offer all new patients an opportunity to have an appointment with one of our associate care providers to learn more about your upcoming procedure, ask questions and get answers. These appointments are offered via telehealth. Would you be interested in scheduling this appointment? (Only ask if NEW referral patient; skip this question if [facility] provider ordered the procedure.) No 17. Is there any other information or concerns you would like to us to share with your care team inrelation to your upcoming scheduled procedure? No 18. You must have a responsible democrat who will drive you to your procedure, stay on campus for the entire duration of your procedure, and drive you home from your procedure. Who will likely be your new autos delivery driver for the procedure? *Please Verify the height and weight, and adjust if height and/or weight have changed* Estimated body mass index is 30.56 kg/m?? as calculated from the following: Height as of 03/14/17: 177.8 cm (5' 10). Weight as of 03/14/17: 96.6 kg (213 lb). *Delete if not needed* Height: 5'10 Weight: 239 BMI: 34.3 Age:66 y.o. documented in this encounter Plan of Treatment Not on file documented as of this encounter Visit Diagnoses Not on filedocumented in this encounter Care Teams Policy Director Relationship Specialty Start Date End Date Sheree Marcano MD [address] [place] [address] PCP - General Family Medicine 10/01/19 documented as of this encounter
--- OUTSIDE RECORDS SUMMARY | 2023-09-28 02:47 | XMS_ITS | Encounter Summary ---
Author Organization Count Includes [facility] Address [facility] [place] [address] Care Team Providers Care Teletypewriter Installer Name Role Phone Brandin Koenig MD Primary Care Provider [phone] Encounter Details Date Type Department Care Team (Latest Contact Info) Description 11/26/2013 1:40 PM EDT - 11/26/2013 6:38 PM EDT Hospital En[place] [address] Yossi Copeland MD [facility] [place] [address] Discharge Disposition: Home Social History Tobacco Use [...] Sign Reading Time Taken Comments Blood Pressure 119/69 11/26/2013 4:55 PM EDT Pulse 65 11/26/2013 4:55 PM EDT Temperature - - Respiratory Rate 14 11/26/2013 4:55 PM EDT Oxygen Saturation 96% 11/26/2013 4:55 PM EDT Inhaled Oxygen Concentration - - Weight - - Height - - Body Mass Index - - documented in this encounter Discharge Instructions * Discharge Instructions* Madison Ren RN - 11/26/2013 5:03 PM EDT UPPER GI ENDOSCOPY WHAT TO EXPECT AFTER THE PROCEDURE After the test you may feel a little more gassy or bloated than usual, this is normal. ACTIVITY Because of the sedation that you received Your judgement and reaction time are affected ?? Go home and rest quietly for the remainder of the day. You may resume your normal activities tomorrow. ?? Change from one position to the next slowly. You may lose your balance unexpectedly Be careful on stairs, as you may be unsteady on your feet. FOR THE NEXT 24 HRS ?? DO NOT DRIVE OR OPERATE ANY MACHINERY ?? DO NOT DRINK ALCOHOLIC BEVERAGES ?? DO NOT SIGN LEGAL DOCUMENTS ?? If you are a smoker: DO NOT SMOKE WHILE YOU ARE ALONE Diet ?? Start by eating small portions of foods that ordinarily will not upset your stomach. Be gentle with what you choose to start with. ?? Drink plenty of fluids ( unless otherwise told not to) Medications You may have a mild sore throat. Ice chips, popsicles, over the counter throat lozenges or spray may help numb your throat. This procedure should not cause a fever. IV SITE-- slight redness or tenderness is normal, you can use warm compresses if you get concerned.If the tenderness +/or redness increases or foul drainage and a red streak occurs, please contact your PCP immediately. WHEN SHOULD YOU CALL FOR HELP? Call 911 anytime you think that you need emergency care. For example, call if: You passed out (lost consciousness). You cough up blood. You vomit blood or what looks like coffee grounds. You pass maroon or very bloody stools. Call your healthcare provider or seek immediate medical attention if: You have trouble swallowing. You have belly pain. Your stools are black or tarlike or have streaks of blood. You are sick to your stomach or cannot keep fluids down. Watch closely for changes in your health, and be sure to contact your doctor IF Your throat still hurts after a day or two You do not get better as expected. Monday-Monday Clinic [phone] 8a-5p Same Day Endo [phone] 7a-8p Otherwise contact [phone] and ask to speak to the national business director underwriting operations manager Follow-up care is a mcneal part of your treatment and safety. Be sure to make and go to all appointments, and call your doctor if you are having problems. Instructions have been reviewed and patient expresses understanding * Patient Instructions* Yossi Copeland MD - 11/26/2013 4:51 PM EDT Please see Recommendations in the Provation procedure report which is documented in the procedural note in E-DH. documented in this encounter Medications at Time of Discharge Medication Sig Dispensed Refills Start Date End Date omeprazole (PRILOSEC OTC) 20 mg tablet documented as of this encounter H&P Notes * Yossi Copeland MD - 11/26/2013 4:19 PM EDT Gastroenterology and Hepatology Pre-Procedure History and Physical Exam Procedure: Upper endoscopy Indication: Florence's esophagus There is no problem list on file for this patient. EXAM: HEENT: Airway examined, oropharynx clear LUNGS: Clear to auscultation HEART: Regular rate and rhythm, normal S1, S2 ABDOMEN: Normal bowel sounds, soft, non tender, non distended, A/P Proceed with the planned endoscopic procedure. Risks and benefits of the procedure explained to the patient. Consent signed. documented in this encounter Miscellaneous Notes * Miscellaneous - ProviderAndrés - 11/26/2013 9:36 PM EDT * Op Note - Yossi Copeland MD - 11/26/2013 4:43 PM EDT [facility] [place] Note Patient Name: Remy Perera : [id number] MR#: [id number] Case Date: 11/26/2013 Surgeon: Surgeon(s) and Role: * Yossi Copeland MD - Primary Preoperative diagnosis: Florence's esophagus Postoperative diagnosis: Florence's esophagus, biopsied Procedure(s): UPPER GASTROINTESTINAL ENDOSCOPY,WITH BIOPSY SINGLE OR MULTIPLE Full procedure note is documented under the Procedure section of eDH. * Miscellaneous - Provider, Andrés - 11/26/2013 2:47 PM EDT documented in this encounter Plan of Treatment Not on file documented as of this encounter Procedures Procedure Name Priority Date/Time Associated Diagnosis Comments SURGICAL PATHOLOGY REPORT Routine 11/26/2013 4:44 PM EDT SPECIMEN TO PATHOLOGY Routine 11/26/2013 4:44 PM EDT SPECIMEN TO PATHOLOGY Routine 11/26/2013 4:44 PM EDT UPPER GASTROINTESTINAL ENDOSCOPY,WITH BIOPSY SINGLE OR MULTIPLE (WRVU 2.39) 11/26/2013 4:23 PM EDT 1 yr fu from 10/30/2012 barretts with indefinite dysplasia short seg 30 mins [local] UPPER GI ENDOSCOPY Routine 11/26/2013 2: 31 PM EDT documented in this encounter Results * Surgical Pathology Report (11/26/2013 4:44 PM EDT) FINAL DIAGNOSIS (AP) ? [facility] ? Provider: ?? YOSSI COPELAND ??Pt. Name: ?? REMY PERERA ?I ? Acc #: ?[id number] ?Pt. ? Col Date: ?? 11/26/2013 ? /Sex: ?1955,(58 years),Male ? Rec Date: ?? 11/26/2013 ? LOC: ?4T ? SURGICAL PATHOLOGY ? ---Pathologic Diagnosis--- ? A - Esophagus 38 to 37 cm: ? - Florence's esophagus. ? - No dysplasia is identified, multiple levels examined. ? B - Esophagus 36 to 35 cm: ? - Esophageal squamous and gastric cardia-type mucosa with intestinal ? metaplasia, consistent with Florence's esophagus. ? - No dysplasia is identified. ? CR-0 ? 11/27/13 ? JRP ? 11/28/13 Verified by: ? Elham MORRIS, Israel Smith ? Pathologist ? (Electronic Signature) ? The attending pathologist whose signature appears on this report has ? reviewed all diagnostic slides and has edited the gross and/or ? microscopic portion of the report in rendering the final pathologic ? diagnosis. ? ---Gross Description--- ? A - Labeled/Fixativ e: Esophagus 38-37 cm, formalin. ? Quantity/Size: Fragments, 0.2-0.4 cm. ? Tissue Description: Soft, red-harrington tissue. ? Sections/Proces sing: (T2) ? B - Labeled/Fixativ e: 36-35 cm, formalin. ? Quantity/Size: Fragments, 0.2-0.3 cm. ? Tissue Description: Soft, friable red-harrington tissue. ? Sections/Proces sing: (T2) ??ejr ? ---Clinical Information--- ? Specimen Submitted: ? A - Esophagus 38 to 37 cm ? B - 36 to 35 cm ? Clinical History: ? Barretts esophagus ? Clinical Diagnosis: ? [facility] ? Provider: ?? YOSSI COPELAND ??Pt. Name: ?? REMY PERERA ?I ? Acc #: ?[id number] ?Pt. ? Col Date: ?? 11/26/2013 ? /Sex: ?1955,(58 years),Male ? Rec Date: ?? 11/26/2013 ? LOC: ?4T ? Same 11/28/2013 4:33 PM EDT [facility] 11/26/2013 4:44 PM EDT Yossi Puri MD PATHOLOGY/CYTOLO GY ORDERABLES Performing Organization Address [facility] de Phone Number [facility] [place] [place] [address] * Specimen to Pathology (surgical or derm) (11/26/2013 4:44 PM EDT) AP Specimen 11/26/2013 4:44 PM EDT 11/26/2013 4:44 PM EDT Narrative [facility] - 11/26/2013 4:44 PM EDT Specimen requisition ordered. ??Separate Pathology report to follow Yossi Puri MD PATHOLOGY/CYTOLO GY ORDERABLES Performing Organization Address [facility] Co de Phone Number [facility] * Specimen to Pathology (surgical or derm) (11/26/2013 4:44 PM EDT) AP Specimen 11/26/2013 4:44 PM EDT 11/26/2013 4:44 PM EDT Narrative [facility] - 11/26/2013 4:44 PM EDT Specimen requisition ordered. ??Separate Pathology report to follow Yossi Puri MD PATHOLOGY/CYTOLO GY ORDERABLES CINDY ONEIL * UPPER GI ENDOSCOPY (11/26/2013 2:31 PM EDT) Pathologist [facility] UPPER GI ENDOSCOPY [facility] Endoscopy Patient Name: Remy Perera ? Procedure Date: 11/26/2013 2:31 PM ? N: [id number] ? Date of : 1955 ? Age: 58 ? Order #: [id number] ? Procedure: ? Upper GI endoscopy Indications: ? Follow-up of Florence's esophagus Providers: ? Yossi Copeland MD, Megan ? Darrian, RN, Aleta Centeno RN, Elizabeth ? Andrew, Oil Recovery Unit Operator Referring MD: ?Brandin Koenig MD Medicines: ? Midazolam 4 [...] adequacy to receive ? sedatives. ? - Sedation was administered by [...] incisors. No visible ? abnormalities were present. The maximum longitudinal ? extent of these esophageal mucosal changes was 3 cm ? in length. Biopsies were taken with a cold forceps ? for histology from 35 to 38 m. ? A medium-sized hiatus hernia was found. The proximal ? extent of the gastric folds (end of tubular ? esophagus) was 38 cm from the incisors. The hiatal ? narrowing was 41 cm from the incisors. ? The examined duodenum was normal. ? 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 ? Biopsied. ? - Hiatus hernia. ? - Normal examined duodenum. Recommendation: ?- Await pathology results. ? - Continue present medications. ? - Repeat the upper endoscopy in 3 ? years for surveillance based on ? pathology results. ? Yossi Copeland MD 11/26/2013 5:08 PM This report has been signed electronically. Number of Addenda: 0 Note Initiated On: 11/26/2013 2:31 PM PROVATION 11/26/2013 2:31 PM EDT Brandin Koenig MD GENERAL SURGICAL ORD ERABLES PROVATION documented in this encounter Visit Diagnoses Not on filedocumented in this encounter Administered Medications Inactive Administered Medications - up to 3 most recent administrations Medication Order MAR Action Action Date Dose Rate Site lactated ringers infusion 50 mL/hr, Intravenous, CONTINUOUS, Starting on Mon11/26/13 at 1445, Until Mon11/26/13 at 1736, Endoscopy (Day of Procedure) New Bag 11/26/2013 2:45 PM EDT 50 mL/hr 50 mL/hr documented in this encounter Active and Recently Administered Medications Times are shown in EDT. Continuous Medication Order 11/24/2013 11/25/2013 11/26/2013 lactated ringers infusion (CANCELED) 50 mL/hr, Intravenous, CONTINUOUS, Starting on 11/26/13 at 1445, Until e 11/26/13 at 1736, Endoscopy (Day of Procedure) 1445 (New Bag - Prov ider: Shasha Ceja RN) PRN Medication Order 11/24/2013 11/25/2013 11/26/2013 fentaNYL 50mcg/mL injection (CANCELED) ONCE PRN, Starting on e 11/26/13 at 1625, Until 11/26/13 at 1736, Pain, Intra-Operative (Intra-Procedure), Routine 1625 (Given - Provid er: Megan Colmenares RN)1627 (Given - Provider: Megan Colmenares RN)1634 (Given - Provider: Megan Colmenares RN) midazolam (PF) (VERSED) 1 mg/mL injection (CANCELED) ONCE PRN, Starting on 11/26/13 at 1625, Until 11/26/13 at 1736, Sleep, Intra-Operative (Intra-Procedure), Routine 1625 (Given - Provid er: Megan Colmenares RN)1627 (Given - Provider: Megan Colmenares RN)1634 (Given - Provider: Megan Colmenares RN) documented in this encounter Care Teams Teletypewriter Installer Relationship Specialty Start Date End Date Brandin Koenig MD [address] [place] [address] PCP - General 01/26/10 09/30/19 documented as of this encounter
--- OUTSIDE RECORDS SUMMARY | 2023-09-28 02:47 | XMS_ITS | Encounter Summary ---
Author Organization [facility] Address [facility] [place] [address] Care Team Providers Care Information Delivery Analyst Name Role Phone Brandin Koenig MD Primary Care Provider [phone] Encounter Details Date Type Department Care Team (Late st Contact Info) Description 10/30/2012 1:00 PM EDT - 10/30/2012 1:30 PM EDT Surgery [place] [address] Rehana Copeland MD [facility] [place] [address] UPPER GASTROINTESTINAL ENDOSCOPY,WITH BIOPSY SINGLE OR MULTIPLE (WRVU 2.39) Social History Tobacco Use Types [...] Sign Reading Time Taken Comments Blood Pressure 126/74 10/30/2012 2:18 PM EDT Pulse 65 10/30/2012 2:18 PM EDT Temperature - - Respiratory Rate 16 10/30/2012 2:18 PM EDT Oxygen Saturation 97% 10/30/2012 2:18 PM EDT Inhaled Oxygen Concentration - - Weight - - Height - - Body Mass Index - - documented in this encounter Discharge Instructions * Discharge Instructions* Kenna Riggins RN - 10/30/2012 2:20 PM EDT UPPER GI ENDOSCOPY WHAT TO [...] slowly. You may lose your balance unexpectedly ?? Be careful on stairs, as you may [...] not get better as expected. Monday-Monday Clinic [phone] 8a-5p Same Day Endo [phone] 7a-8p Otherwise contact [phone] and ask to speak to the it infrastructure specialist coupon collection clerk Follow-up care is a mcneal part of your treatment and safety. Be sure to make and go to all appointments, and call your doctor if you are having problems. Instructions have been reviewed and patient expresses understanding * Patient Instructions* Rehana Copeland MD - 10/30/2012 2:08 PM EDT Please see Recommendations in the Provation procedure report which is documented in the procedural note in E-DH. documented in this encounter Medications at Time of Discharge Medication Sig Dispensed Refills Start Date End Date omeprazole (PRILOSEC OTC) 20 mg tablet citalopram (CELEXA) 20 mg tablet 09/16/19 10 11/26/2013 documented as of this encounter H&P Notes * Rehana Copeland MD - 10/30/2012 1:35 PM EDT Gastroenterology and Hepatology Pre-Procedure History and Physical Exam Procedure:Upper endoscopy Indication: Florence's esophagus There is no [...] Notes * Miscellaneous - Provider, Scanning - 10/30/2012 5:03 PM EDT * Op Note - Rehana Copeland MD - 10/30/2012 2:07 PM EDT [facility] [place] Operative Note Patient Name: Deepa Perera : [id number] MR#: [id number] Case Date: 10/30/2012 Surgeon: Surgeon(s) and Role: * Rehana Copeland MD - Primary Preoperative diagnosis: 1 yr fu Flroence's esophagus Postoperative diagnosis: Florence's esophagus, biopsies taken Procedure(s): UPPER GASTROINTESTINAL ENDOSCOPY,WITH BIOPSY SINGLE OR MULTIPLE Full procedure note is documented under the Procedure section of eDH. documented in this encounter Plan of Treatment Not on file documented as of this encounter Procedures Procedure Name Priority Date/Time Associated Diagnosis Comments SURGICAL PATHOLOGY REPORT Routine 10/30/2012 2:09 PM EDT SPECIMEN TO PATHOLOGY Routine 10/30/2012 2:09 PM EDT SPECIMEN TO PATHOLOGY Routine 10/30/2012 2:09 PM EDT UPPER GASTROINTESTINAL ENDOSCOPY,WITH BIOPSY SINGLE OR MULTIPLE (WRVU 2.39) 10/30/2012 1:44 PM EDT 1 yr fu [local] UPPER GI ENDOSCOPY Routine 10/30/2012 1: 39 PM EDT documented in this encounter Results * Surgical Pathology Report (10/30/2012 2:09 PM EDT) Surgical Pathology Report ? [facility] ? Provider: ?? REHANA COPELAND ??Pt. Name: ?? DEEPA PERERA ?I ? Acc #: ?[id number] ?Pt. ? Col Date: ?? 10/30/2012 ? /Sex: ?1955,(57 years),Male ? Rec Date: ?? 10/30/2012 ? LOC: ?4T ? SURGICAL PATHOLOGY ? ---Pathologic Diagnosis--- ? Endoscopic biopsies - ? A - Esophagus 38 to 37cm: ? Florence's esophagus, specialized type, NEGATIVE FOR DYSPLASIA. ? B - Esophagus 36 to 35cm ? Florence's esophagus, specialized type, NEGATIVE FOR DYSPLASIA. ? CR-0 ? 11/01/12 ? XL ? 11/01/12 Verified by: ? Candice Thomas MD ? Pathologist ? (Electronic Signature) ? The attending pathologist whose signature appears on this report has ? reviewed all diagnostic slides and has edited the gross and/or ? microscopic portion of the report in rendering the final pathologic ? diagnosis. ? ---Comment--- ? Additional levels examined. ? ---Gross Description--- ? A - Labeled/Fixative: Esophagus 38-37 centimeters, formalin. ? Quantity/Size: Multiple, averaging 0.3 cm. ? Tissue Description: Soft harrington-red tissue fragments. ? Sections/Processi ng: (T2) ? B - Labeled/Fixative: Esophagus at 36-35 centimeters, formalin. ? Quantity/Size: Seven, averaging 0.3 cm. ? Tissue Description: Soft harrington tissue. ? Sections/Processi ng: (T2) ??KSB ? ---Clinical Information--- ? Specimen Submitted: ? A - Esophagus 38 to 37cm ? B - Esophagus 36 to 35cm ? Clinical History: ? History indeterminate dysplastic Barretts one year ago ? [facility] ? Provider: ?? REHANA COPELAND ??Pt. Name: ?? DEEPA PERERA ?I ? Acc #: ?[id number] ?Pt. ? Col Date: ?? 10/30/2012 ? /Sex: ?1955,(57 years),Male ? Rec Date: ?? 10/30/2012 ? LOC: ?4T ? SURGICAL PATHOLOGY ? Clinical Diagnosis: ? Same [facility] MILLENNIUM 10/30/2012 2:09 PM EDT Rehana Puri MD PATHOLOGY/CYTOLO GY ORDERABLES Performing Organization Address [facility] de Phone Number CINDY VARELAIUM * Specimen to Pathology (surgical or derm) (10/30/2012 2:09 PM EDT) AP Specimen 10/30/2012 2:09 PM EDT 10/30/2012 2:09 PM EDT Narrative CERNER MILLENNIUM - 10/30/2012 2:09 PM EDT Specimen requisition ordered. ??Separate Pathology report to follow Rehana Puri MD PATHOLOGY/CYTOLO GY ORDERABLES Performing Organization Address [facility] Phone Number CINDY VARELAIUM * Specimen to Pathology (surgical or derm) (10/30/2012 2:09 PM EDT) AP Specimen 10/30/2012 2:09 PM EDT 10/30/2012 2:08 PM EDT Narrative CERNER MILLENNIUM - 10/30/2012 2:09 PM EDT Specimen requisition ordered. ??Separate Pathology report to follow Rehana Puri MD PATHOLOGY/CYTOLO GY ORDERABLES Performing Organization Address [facility] de Phone Number CINDY JAMESENNIUM * UPPER GI ENDOSCOPY (10/30/2012 1:39 PM EDT) UPPER GI ENDOSCOPY [facility] Endoscopy Patient Name: Deepa Perera ? Procedure Date: 10/30/2012 1:39 PM ? Date of : 1955 ? Age: 57 ? Order #: [id number] ? Procedure: ? Upper GI endoscopy Indications: ? Follow-up of Florence's esophagus Providers: ? Rehana Copeland MD, Megan ? Darrian, RN, Elizabeth Morales, Secretary Office Clerk Referring : ?Brandin Koenig MD Medicines: ? Midazolam 4 mg IV, Fentanyl 175 ? micrograms IV, Benzocaine spray Complications: ? [...] incisors. No visible ? abnormalities were present. Florence's was peninsular ? and island form, M3C0.Biopsies were taken with a cold ? forceps for histology from 35 to 38 cm. ? A medium-sized hiatus hernia was found. The proximal ? extent of the gastric folds (end of tubular ? esophagus) was 38 cm from the incisors. The hiatal ? narrowing was 41 cm from the incisors. ? The examined duodenum was normal. ? 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 ? - Hiatus hernia. ? - Normal examined duodenum. Recommendation: ?- Await pathology results. ? - Continue present medications. ? - Repeat the upper endoscopy in 3 ? years for surveillance based on ? pathology results. ? Rehana Copeland MD 10/30/2012 2:53 PM This report has been signed electronically. Number of Addenda: 0 Note Initiated On: 10/30/2012 1:39 PM PROVATION 10/30/2012 1:39 PM EDT Brandin Koenig MD GENERAL SURGICAL ORD ERABLES PROVATION documented in this encounter Visit Diagnoses Not on filedocumented in this encounter Administered Medications Inactive Administered Medications - up to 3 most recent administrations Medication Order MAR Action Action Date Dose Rate Site fentaNYL 50mcg/mL injection ONCE PRN, Starting on Mon10/30/12 at 1349, Until Mon10/30/12 at 1944, Pain, Intra-Operative (Intra-Procedure), Routine Given 10/30/2012 1:59 PM EDT 25 mcg Given 10/30/2012 1:53 PM EDT 50 mcg Given 10/30/2012 1:49 PM EDT 100 mcg midazolam (VERSED) injection ONCE PRN, Starting on Mon10/30/12 at 1350, Until Mon10/30/12 at 1944, Sleep, Intra-Operative (Intra-Procedure), Routine Given 10/30/2012 1:59 PM EDT 1 mg Given 10/30/2012 1:53 PM EDT 1 mg Given 10/30/2012 1:50 PM EDT 2 mg documented in this encounter Active and Recently Administered Medications Times are shown in EDT. PRN Medication Order 2012 10/29/2012 10/30/2012 fentaNYL 50mcg/mL injection (CANCELED) ONCE PRN, Starting on Mon10/30/12 at 1349, Until Mon10/30/12 at 1944, Pain, Intra-Operative (Intra-Procedure), Routine 1349 (Given - Provid er: Megan Colmenares RN - Comment: med for sedation)1353 (Given - Provider: Megan Colmenares RN - Comment: med for sedation)1359 (Given - Provider: eMgan Colmenares RN - Comment: med for sedation) midazolam (VERSED) injection (CANCELED) ONCE PRN, Starting on Mon10/30/12 at 1350, Until Mon10/30/12 at 1944, Sleep, Intra-Operative (Intra-Procedure), Routine 1350 (Given - Provid er: Megan Colmenares RN - Comment: med for sedation)1353 (Given - Provider: Megan Colmenares RN - Comment: med for sedation)1359 (Given - Provider: Megan Colmenares RN - Comment: med for sedation) documented in this encounter Care Teams Information Delivery Analyst Relationship Specialty Start Date End Date Brandin Koenig MD [address] [address] PCP - General 01/26/10 09/30/19 documented as of this encounter
--- OUTSIDE RECORDS SUMMARY | 2023-09-28 02:47 | XMS_ITS | Encounter Summary ---
Author Organization 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 Have you ever had a/an Upper Endoscopy before? Yes: Date 03/14/17 If yes, did you have any problems [...] sedation or anesthesia? No 9. Do you use a c-pap machine or oxygen tank? Neither 10. Do you take prescription narcotic pain medications, including suboxone or methodone? No 11. Do you have a preference regarding the gender of your provider? Yes: Male Min 12. Is there any other information you would like to us to note for the provider and nursing team who will perform your case? No 13. Say to patient: You must have a responsible democrat who will drive you to your procedure, stay oncampus for the entire duration of your procedure, and drive you home from your procedure? *Please Verify the height and weight, and adjust if height and/or weight have changed* Estimated body mass index is 30.56 kg/m?? as calculated from the following: Height as of 03/14/17: 177.8 cm (5' 10). Weight as of 03/14/17: 96.6 kg (213 lb). *Delete if not needed* Height: 5'10 Weight: 230 BMI: 33 Age:65 y.o. documented in this encounter Plan of Treatment Not on file documented as of this encounter Visit Diagnoses Not on filedocumented in this encounter Care Teams Garment Sewer Hand Relationship Specialty Start Date End Date Sheree Marcano MD [address] [place] [address] PCP - General Family Medicine 10/01/19 documented as of this encounter
--- OUTSIDE RECORDS SUMMARY | 2023-09-28 02:47 | XMS_ITS | Encounter Summary ---
Author Organization [facility] Address [facility] [place] [address] Care Team Providers Care Custom Applicator Name Role Phone Brandin Koenig MD Primary Care Provider [phone] Encounter Details Date Type Department Care Team (Latest Contact Info) Description 10/30/2012 12:04 PM EDT - 10/30/2012 4:35 PM EDT Hospital En[place] [address] Yossi Copeland MD [facility] [place] [address] Discharge Disposition: Home Social History Tobacco Use [...] not get better as expected. Monday-Monday Clinic [phone] 8a-5p Same Day Endo [phone] 7a-8p Otherwise contact [phone] and ask to speak to the forensic medical examiner bonding agent Follow-up care is a mcneal part of your treatment and safety. Be sure to make and go to all appointments, and call your doctor if you are having problems. 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 [facility] ? Provider: ?? YOSSI COPELAND ??Pt. Name: ?? REMY PERERA ?I ? Acc #: ?[id number] ?Pt. ? Col Date: ?? 10/30/2012 ? 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 [facility] ? Provider: ?? YOSSI COPELAND ??Pt. Name: ?? REMY PERERA ?I ? Acc #: ?[id number] ?Pt. ? Col Date: ?? 10/30/2012 ? /Sex: ?1955,(57 years),Male ? Rec Date: ?? 10/30/2012 ? LOC: ?4T ? SURGICAL PATHOLOGY ? Clinical Diagnosis: ? Same CERNER ERIKAENNIUM 10/30/2012 2:09 PM EDT Yossi Puri MD PATHOLOGY/CYTOLO GY ORDERABLES Performing Organization Address [facility] Phone Number CINDY ONEIL * Specimen to Pathology (surgical or derm) (10/30/2012 2:09 PM EDT) AP Specimen 10/30/2012 2:09 PM EDT 10/30/2012 2:09 PM EDT Narrative KONRADNER ERIKAENNIUM - 10/30/2012 2:09 PM EDT Specimen requisition ordered. ??Separate Pathology report to follow Yossi Puri MD PATHOLOGY/CYTOLO GY ORDERABLES Performing Organization Address [facility] Phone Number CINDY ONEIL * Specimen to Pathology (surgical or derm) (10/30/2012 2:09 PM EDT) AP Specimen 10/30/2012 2:09 PM EDT 10/30/2012 2:08 PM EDT Narrative KONRADNER ERIKAENNIUM - 10/30/2012 2:09 PM EDT Specimen requisition ordered. ??Separate Pathology report to follow Yossi Puri MD PATHOLOGY/CYTOLO GY ORDERABLES Performing Organization Address [facility] Phone Number [facility] * UPPER GI ENDOSCOPY (10/30/2012 1:39 PM EDT) UPPER GI ENDOSCOPY [facility] Endoscopy Patient Name: Remy Perera ? Procedure Date: 10/30/2012 1:39 PM ? Date of : 1955 ? Age: 57 ? Order #: [id number] ? Procedure: ? Upper GI endoscopy Indications: ? Follow-up of Florence's esophagus Providers: ? Yossi Copeland MD, Megan ? Darrian, RN, Elizabeth Morales, Embedded Systems Software Developer Referring : ?Brandin H Arya, MD Medicines: ? Midazolam 4 mg IV, [...] ? pathology results. ? Yossi Copeland MD 10/30/2012 2:53 PM This report has been signed electronically. Number of Addenda: 0 Note Initiated On: 10/30/2012 1:39 PM PROVATION 10/30/2012 1:39 PM EDT Brandin Koenig MD GENERAL SURGICAL ORD ERABLES PROVATION documented in this encounter Visit Diagnoses Not on filedocumented in this encounter Active and Recently Administered [...] sedation) documented in this encounter Care Teams Custom Applicator Relationship Specialty Start Date End Date Brandin Koenig MD [address] [place] [address] PCP - General 01/26/10 09/30/19 documented as of this encounter
--- OUTSIDE RECORDS SUMMARY | 2023-09-28 02:47 | XMS_ITS | Encounter Summary ---
[place] [address] Care Team Providers Care Home Health Nurse Name Role Phone Sheree Marcano MD Primary Care Provider [phone] Encounter Details Date Type Department Care Team (Late st Contact Info) Description 05/01/2007 [place] [id number] Sheree Bella MD [address] [place] [id number] Social History Tobacco Use Types Packs/Day Years [...] Associated Diagnosis Comments SURGICAL PATHOLOGY REPORT Routine 05/01/2007 4:23 PM EST documented in this encounter Results * Surgical Pathology Report (05/01/2007 4:23 PM EST) Surgical Pathology Report [id number] ? Location: OPW The signing pathologist has (i) examined the relevant preparation(s) for the specimen(s) and (ii) rendered or confirmed the diagnosis(es). . ?Pathology Surgical Pathology Final Report Clinical Information Specimen Submitted: A - Midback; Shave Clinical History: 4-mm irregular pigmented macule Clinical Diagnosis: Nevus, R/O MM Report to: Sheree Bella MD Dermatology [address] [place] [address] , [address] [place], [place] ??[address] Phone - FAX - Gross Description Labeled/Fixative: ? Mid back, formalin. Qty/Size/Weight: ?Single shave, 0.5 cm, with a central, dark ?brown-black macule, 0.4 x 0.3 cm in greatest ?dimension. Sections/Processi ng: ??Inked. ??Bisected. ??(T1) aje/PPS Microscopic Description Slides reviewed, microscopic description not recorded. Diagnosis Skin, mid back, shave biopsy: ?Lentiginous junctional melanocytic proliferation with moderate atypia, extending close to the peripheral edges, m ??ultiple deep levels have been examined ??. CR-0 05/03/07 SY 05/04/07 Verified by: ? Mika Velasco MD, PhD ?Dermatopatholog ist ?(Electronic Signature) The attending pathologist whose signature appears on this report has reviewed all diagnostic slides and has edited the gross and/or microscopic portion of the report in rendering the final pathologic diagnosis. CINDY ONEIL 05/01/2007 4:23 PM EST Sheree Bella MD PATHOLOGY/CYTOLOGY O RDERABLES CINDY ONEIL documented in this encounter Visit Diagnoses Not on filedocumented in this encounter Care Teams Home Health Nurse Relationship Specialty Start Date End Date Sheree Marcano MD [address] [place] [phone] PCP - General Family Medicine 10/01/19 documented as of this encounter
--- OUTSIDE RECORDS SUMMARY | 2023-09-28 02:47 | XMS_ITS | Encounter Summary ---
Author Organization [facility] Address [facility] [place] [address] Care Team Providers Care Certified Cytotechnologist Name Role Phone Brandin Koenig MD Primary Care Provider [phone] Encounter Details Date Type Department Care Team (Late st Contact Info) Description 11/26/2013 3:15 PM EDT - 11/26/2013 3:45 PM EDT [place] [address] Yossi Copeland MD [facility] [place] [address] UPPER GASTROINTESTINAL ENDOSCOPY,WITH BIOPSY SINGLE OR MULTIPLE [...] WHEN SHOULD YOU CALL FOR HELP? Call [phone] anytime you think that you need emergency [...] not get better as expected. Monday-Monday Clinic [phone] 8a-5p Same Day Endo [phone] 7a-8p Otherwise contact [phone] and ask to speak to the chief procurement officer mobile application developer Follow-up care is a mcneal part of [...] Notes * Miscellaneous - Provider, Scanning - 11/26/2013 9:36 PM EDT * Op Note - Yossi Copeland MD - 11/26/2013 4:43 PM EDT [facility] Operative Note Patient Name: Remy Perera : [id number] MR#: [id number] Case Date: 11/26/2013 Surgeon: Surgeon(s) and Role: * Yossi Copeland MD - Primary Preoperative diagnosis: Florence's esophagus Postoperative diagnosis: Florence's esophagus, biopsied Procedure(s): UPPER GASTROINTESTINAL ENDOSCOPY,WITH BIOPSY SINGLE OR MULTIPLE Full procedure note is documented under the Procedure section of eDH. * Miscellaneous - ProviderAndrés - 11/26/2013 2:47 PM EDT documented in [...] 4:44 PM EDT) FINAL DIAGNOSIS (AP) ? [facility] ? Provider: ?? YOSSI COPELAND ??Pt. Name: ?? TREVERREMY ?I ? Acc #: ?[id number] ?Pt. ? Col Date: ?? 11/26/2013 ? [...] ? Barretts esophagus ? Clinical Diagnosis: ? [facility] ? Provider: ?? YOSSI COPELAND ??Pt. Name: ?? REMY PERERA ?I ? Acc #: ?[id number] ?Pt. ? Col Date: ?? 11/26/2013 ? /Sex: ?1955,(58 years),Male ? Rec Date: ?? 11/26/2013 ? LOC: ?4T ? Same 11/28/2013 4:33 PM EDT [facility] 11/26/2013 4:44 PM EDT Yossi Puri MD PATHOLOGY/CYTOLO GY ORDERABLES Performing Organization Address [facility] Co de Phone Number [facility] [place] [address] * Specimen to Pathology (surgical or derm) (11/26/2013 4:44 PM EDT) AP Specimen 11/26/2013 4:44 PM EDT 11/26/2013 4:44 PM EDT Narrative KONRADNER MILLENNIUM - 11/26/2013 4:44 PM EDT Specimen requisition ordered. ??Separate Pathology report to follow Yossi Puri MD PATHOLOGY/CYTOLO GY ORDERABLES Performing Organization Address [facility]/State/ZIP Co de Phone Number CINDY ONEIL * Specimen to Pathology (surgical or derm) (11/26/2013 4:44 PM EDT) AP Specimen 11/26/2013 4:44 PM EDT 11/26/2013 4:44 PM EDT Narrative KONRADNER MILLARLENEIUM - 11/26/2013 4:44 PM EDT Specimen requisition ordered. ??Separate Pathology report to follow Yossi Puri MD PATHOLOGY/CYTOLO GY ORDERABLES CINDY ONEIL * UPPER GI ENDOSCOPY (11/26/2013 2:31 PM EDT) UPPER GI ENDOSCOPY [facility] Endoscopy Patient Name: Remy Perera ? Procedure Date: 11/26/2013 2:31 PM ? [facility]: [id number] ? Date of : 1955 ? Age: 58 ? Order #: [id number] ? Procedure: ? Upper GI endoscopy Indications: ? Follow-up of Florence's esophagus Providers: ? Yossi Copeland MD, Megan ? Darrian, RN, Aleta Centeno, RN, Elizabeth ? Andrew, Tool Lapper Hand Referring MD: ?Brandin Koenig MD Medicines: ? [...] fentaNYL 50mcg/mL injection ONCE PRN, Starting on Mon11/26/13 at 1625, Until Mon11/26/13 at 1736, Pain, Intra-Operative (Intra-Procedure), Routine Given 11/26/2013 4:34 PM EDT 50 mcg Given 11/26/2013 4:27 PM EDT 50 mcg Given 11/26/2013 4:25 PM EDT 100 mcg lactated ringers infusion 50 mL/hr, Intravenous, CONTINUOUS, Starting on 11/26/13 at 1445, Until 11/26/13 at 1736, Endoscopy (Day of Procedure) New Bag 11/26/2013 2:45 PM EDT 50 mL/hr 50 mL/hr midazolam (PF) (VERSED) 1 mg/mL injection ONCE PRN, Starting on 11/26/13 at 1625, Until 11/26/13 at 1736, Sleep, Intra-Operative (Intra-Procedure), Routine Given 11/26/2013 4:34 PM EDT 1 mg Given 11/26/2013 4:27 PM EDT 1 mg Given 11/26/2013 4:25 PM EDT 2 mg documented in this encounter Active and Recently Administered Medications Times are shown in EDT. Continuous Medication Order 11/24/2013 11/25/2013 11/26/2013 lactated ringers infusion (CANCELED) 50 mL/hr, Intravenous, CONTINUOUS, Starting on e 11/26/13 at 1445, Until Mon11/26/13 at 1736, Endoscopy (Day of Procedure) 1445 [...] Routine 1625 (Given - Provid er: Megan Colmenares, MARK)1627 (Given - Provider: Megan Colmenares, MARK)1634 (Given - Provider: Megan Colmenares, MARK) documented in this encounter Care Teams Certified Cytotechnologist Relationship Specialty Start Date End Date Brandin Koenig MD [address] [place] [address] PCP - General 01/26/10 09/30/19 documented as of this encounter
--- OUTSIDE RECORDS SUMMARY | 2023-09-28 02:47 | XMS_ITS | Encounter Summary ---
Author Organization [facility] Address [facility] [place] [address] Care Team Providers Care Firefighter Name Role Phone Brandin Koenig MD Primary Care Provider [phone] Encounter Details Date Type Department Care Team (Latest Contact Info) Description 10/11/2011 11:34 AM EDT - 10/11/2011 2:51 PM EDT Hospital En[place] [address] Rehana Copeland MD [facility] [place] [address] Discharge Disposition: Home Social History Tobacco Use [...] occurs please contact your M.D. Please call [phone] before 5pm with problems, questions or concerns. After 5pm call [phone] and ask to speak with the director business travel identification and records commander. Discharge instructions reviewed with patient who expresses's [...] occurs please contact your M.D. Please call [phone] before 5pm with problems, questions or concerns. After 5pm call [phone] and ask to speak with the director business travel identification and records commander. Discharge instructions reviewed with patient who expresses's [...] occurs please contact your M.D. Please call [phone] before 5pm with problems, questions or concerns. After 5pm call [phone] and ask to speak with the director business travel identification and records commander. Discharge instructions reviewed with patient who expresses's understanding. * Patient Instructions* Rehana Copeland MD - 10/11/2011 2:01 PM EDT Please see Recommendations in the Provation procedure report which is documented in the procedural note in E-DH. * Attachments The following attachments cannot be sent through Care Everywhere. * UPPER GI ENDOSCOPY: WHAT TO EXPECT AT HOME (BANGLADESHI) documented in this encounter Medications at Time [...] CIS - Anaphylaxis Social History: Lives in [place], [place]. Works at [employer]. No smoking, drinks 6 drinks a week [...] Copeland MD - 10/11/2011 2:00 PM EDT [facility] [place] Note Patient Name: Deepa Perera : [id number] MR#: [id number] Case Date: 10/11/2011 Surgeon: Surgeon(s) and Role: [...] 4:16 PM EDT) Surgical Pathology Report ? [facility] ? Provider: ?? REHANA COPELAND ??Pt. Name: ?? DEEPA PERERA ?I ? Acc #: ?[id number] ?Pt. ? Col Date: ?? 10/11/2011 ?/Sex: [...] hemorrhagic. ? Sections/Processi ng: ??(T1) ??aje/PPS ? [facility] ? Provider: ?? REHANA COPELAND ??Pt. Name: ?? DEEPA PERERA ?I ? Acc #: ?[id number] ?Pt. ? Col Date: ?? 10/11/2011 ?/Sex: [...] MD PATHOLOGY/CYTOLO GY ORDERABLES Performing Organization Address [facility] de Phone Number CINDY ONEIL * Specimen to Pathology (surgical or derm) (10/11/2011 2:01 PM EDT) AP Specimen 10/11/2011 2:01 PM EDT 10/11/2011 2:01 PM EDT Narrative CINDY VARELAIUM - 10/11/2011 2:01 PM EDT Specimen requisition ordered. ??Separate Pathology report to follow Rehana Puri MD PATHOLOGY/CYTOLO GY ORDERABLES Performing Organization Address [facility] de Phone Number CINDY ONEIL * Specimen to Pathology (surgical or derm) (10/11/2011 2:01 PM EDT) AP Specimen 10/11/2011 2:01 PM EDT 10/11/2011 2:01 PM EDT Narrative CINDY ONEIL - 10/11/2011 2:01 PM EDT Specimen requisition ordered. ??Separate Pathology report to follow Rehana Puri MD PATHOLOGY/CYTOLO GY ORDERABLES Performing Organization Address [facility] de Phone Number CINDY ONEIL * UPPER GI ENDOSCOPY (10/11/2011 1:22 PM EDT) UPPER GI ENDOSCOPY [facility] Endoscopy Patient Name: Deepa Perera ? Procedure Date: 10/11/2011 1:22 PM ? Date of : 1955 ? Age: 55 ? Order #: [id number] ? Procedure: ? Upper GI endoscopy Indications: ? Follow-up of Florence's esophagus Providers: ? Rehana Copeland MD, Brenda Ortega ? MD Jacob, Rob Hatfield RN, ? Elizabeth Morales, Carpenter And Joiner Referring : ?Brandin Koenig MD Medicines: ? [...] MAR Action Action Date Dose Rate Site sodium chloride 0.9% infusion 50 mL/hr, Intravenous, CONTINUOUS, Starting on Mon10/11/11 at 1230, Until Mon10/11/11 at 1707, Endoscopy (Day of Procedure) New Bag 10/11/2011 12:30 PM EDT 50 mL/hr 50 mL/hr documented in this encounter Active and Recently Administered Medications Times are shown in EDT. Continuous Medication Order 10/09/2011 10/10/2011 10/11/2011 sodium chloride 0.9% infusion (CANCELED) 50 mL/hr, Intravenous, CONTINUOUS, Starting on 8/7/12 at 1230, Until Mon10/11/11 at 1707, Endoscopy (Day of Procedure) 1230 (New Bag - Prov ider: Shasha Ceja RN) PRN Medication Order 10/09/2011 10/10/2011 10/11/2011 benzocaine (HURRICANE) 20 % oral spray (CANCELED) CONTINUOUS PRN, Pain, Starting on Mon10/11/11 at 1330, Until Tu10/11/11 at 1707, For Procedural use. [place] on area for one second. May repeat if necessary. Do not exceed a spray duration of 2 seconds., Intra-Operative (Intra-Procedure) 1330 (New Bag - Prov ider: Rob Hatfield RN - Comment: 8 shots to back of throat) fentaNYL 50mcg/mL injection (CANCELED) ONCE PRN, Starting on Mon10/11/11 at 1330, Until Tu10/11/11 at 1707, Pain, Intra-Operative (Intra-Procedure), Routine 1330 (Given - Provid er: Rob Hatfield RN - Comment: start moderate sedation)1333 (Given - Provider: Rob Hatfield RN - Comment: awake after 1st dose and 3 minutes)1336 (Given - Provider: Rob Hatfield RN - Comment: grimmacing and muscle tension) midazolam (VERSED) injection (CANCELED) ONCE PRN, Starting on Mon10/11/11 at 1330, Until Tu10/11/11 at 1707, Sleep, Intra-Operative (Intra-Procedure), Routine 1330 (Given - Provid er: Rob Hatfield RN - Comment: see fentanyl same time)1333 (Given - Provider: Rob Hatfield RN - Comment: see fentanyl same time)1336 (Given - Provider: Rob Hatfield RN - Comment: see fentanyl same time) documented in this encounter Care Teams Firefighter Relationship Specialty Start Date End Date Brandin Koenig MD [address] [place] [address] PCP - General 01/26/10 09/30/19 documented as of this encounter
--- OUTSIDE RECORDS SUMMARY | 2023-09-28 02:47 | XMS_ITS | Encounter Summary ---
Author Organization [facility] Address [address] [place] [address] Care Team Providers Care Clay Plant Treater Name Role Phone Unknown, Provider MD Primary Care Provider Reason for Visit * Reason Comments Follow-up hernia check 1 yr Encounter Details Date Type Department Care Team (Late st Contact Info) Description 08/23/2023 14:30 EDT Office Visit [facility] General Surgery - [address] [id number] Usama Garrett MD [address] [place] [address], [address] [place] [address] Left inguinal hernia (Primary Dx) Social History Tobacco Use Types Packs/Day Years Used Date Smoking Tobacco: Former Smokeless Tobacco: Never Alcohol Use Standard Drinks/Week Comments Yes 0 [...] EDT Pulse 60 08/23/2023 1409 EDT Temperature - - Respiratory Rate - - Oxygen Saturation - - Inhaled Oxygen Concentration - - Weight 111.1 kg (245 lb) 08/23/2023 1409 EDT Height - - Body Mass Index 35.15 03/30/2022 1054 EST documented in this encounter Functional Status Functional Status Response Date of [...] concentrating, remembering, or making decisions? No 08/23/2023 documented as of this encounter Progress Notes * Usama Garrett MD - 08/23/2023 1430 EDT Colorectal Surgery Clinic Follow-Up Note Reason For Visit: Follow-up inguinal hernia HPI: Remy returns to clinic for repeat evaluation of the left inguinal hernia. He still reports stable mild discomfort. He is only had 4 episodes of discomfort since last being seen. No obstructive symptoms. Balance remained normal. No significant bulge in the left side. No limitations in physical activity.. Review of Symptoms: Reviewed in detail. He has no pertinent positives on extensive review of systems other than as described above. PMH/PSH/Meds/Allergies: No change in history, medications, or allergies unless noted below. Objective: Blood pressure 130/80, pulse 60, weight (!) 111.1 kg (245 lb). Physical Exam: Gen: awake, alert, and oriented x 3, NAD Neck: soft CV: regular rate Pulm: non-labored respirations, comfortable on room air Abd: reducible left inguinalhernia Ext: well perfused Anorectal: deferred Data Review: Labs: No results found for: WBC, HGB, HCT, PLT No results found for: CREATININE, BUN, NA, K, CL, CO2, CALCIUM No results found for: TP, LABALBU, PREALBUMIN, TBIL, INR, CRP No results found for: CEA, CA199, CA125 Radiology: none Assessment: Remy Cazares is a(n) 67 y.o. old male with a minimally symptomatic left inguinal hernia. It is reducible on exam. Again discussed operative intervention versus watchful waiting. Patient would like to avoid surgery at this time. Plan: Follow-up if symptoms worsen or if Remy would like to rediscuss surgery. Usama Garrett MD 08/23/2023 14:36 documented in this encounter Plan of Treatment Not on file documented as of this encounter Visit Diagnoses Diagnosis Left inguinal hernia- Primary Inguinal hernia without mention of obstruction or gangrene, unilateral or unspecified, (not specified as recurrent) documented in this encounter Care Teams Clay Plant Treater Relationship Specialty Start Date End Date Unknown, Provider, PCP - General 04/26/23 documented as of this encounter
--- OUTSIDE RECORDS SUMMARY | 2023-09-28 02:47 | XMS_ITS | Encounter Summary ---
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 [address] Discharge Disposition: Home Social History Tobacco Use [...] Sign Reading Time Taken Comments Blood Pressure 123/79 03/14/2017 1:20 PM EST Pulse 63 03/14/2017 1:25 PM EST Temperature - - Respiratory Rate 8 03/14/2017 1:25 PM EST Oxygen Saturation 97% 03/14/2017 1:25 PM EST Inhaled Oxygen Concentration - - Weight 96.6 kg (213 lb) 03/14/2017 11:49 AM EST Height 177.8 cm (5' 10) 03/14/2017 11:49 AM EST Body Mass Index 30.56 03/14/2017 11:49 AM EST documented in this encounter Discharge Instructions * Discharge Instructions* Rosemarie Carlos RN - 03/14/2017 2:56 PM EST UPPER GI ENDOSCOPY WHAT TO EXPECT AFTER [...] do not get better as expected. Monday-Monday Same Day Endo [phone]-8p Otherwise contact [phone] and ask to speak to the voltmeter operator track production engineer Follow-up care is a mcneal part of your treatment and safety. Be sure to make and go to all appointments, and call your doctor if you are having problems. Instructions have been reviewed and patient expresses understanding * Patient Instructions* Rehana Copeland MD - 03/14/2017 1:29 PM EST Please see Recommendations in the Provation procedure report which is documented in the procedural note in [facility]. documented in this encounter Medications at Time of Discharge Medication Sig Dispensed Refills Start Date End Date multivitamin (THERAGRAN) Tablet Take 1 tablet by mouth daily. zinc sulfate (ZINCATE) 220 (50) mg Capsule Take 220 mg by mouth daily. omeprazole (PRILOSEC OTC) 20 mg tablet 09/15/2009 documented as of this encounter H&P Notes * Rehana Copeland MD - 03/14/2017 1:08 PM EST Gastroenterology and Hepatology Pre-Procedure History and Physical [...] Op Note - Rehana Copeland MD - 03/14/2017 1:[address] [facility] [place] Note Patient Name: Remy Cazares : [id number] MR#: [id number] Case Date: 03/14/2017 Surgeon: Surgeon(s) and Role: * Rehana Copeland MD - Primary Preoperative diagnosis: 3 yr fu from 11/26/13 barretts surveillance non dysplastic barretts esophagus Postoperative diagnosis: Florence's esophagus, biopsies taken Procedure(s) (LRB): UPPER GASTROINTESTINAL ENDOSCOPY,WITH BIOPSY SINGLE OR MULTIPLE (WRVU 2.49) (N/A) Attestation: Case Date: 03/14/2017 REHANA COPELAND MD 03/14/2017 Full procedure note is documented under the Procedure section of [facility]. documented in this encounter Plan of Treatment Not on file documented as of this encounter Procedures Procedure Name Priority Date/Time Associated Diagnosis Comments SURGICAL PATHOLOGY REPORT Routine 03/14/2017 1:25 PM EST SPECIMEN TO PATHOLOGY Routine 03/14/2017 1:25 PM EST SPECIMEN TO PATHOLOGY Routine 03/14/2017 1:25 PM EST UPPER GASTROINTESTINAL ENDOSCOPY,WITH BIOPSY SINGLE OR MULTIPLE (WRVU 2.39) 03/14/2017 1:11 PM EST 3 yr fu from 11/26/13 barretts surveillance non dysplastic barretts short seg 30 min slot UPPER GI ENDOSCOPY Routine 03/14/2017 12 :59 PM EST documented in this encounter Results * Surgical Pathology Report (03/14/2017 1:25 PM EST) FINAL DIAGNOSIS (AP) [id number] ? Location: 4T; EA12; A The signing pathologist has (i) examined the relevant preparation(s) for the specimen(s) and (ii) rendered or confirmed the diagnosis(es). . ?Surgical Pathology DIAGNOSIS A - 37-36 cm, ??biopsy: Florence 's esophagus, negative for dysplasia. Additional levels examined. B - 35-34 cm esophagus, ?? biopsy: Florence 's esophagus, negative for dysplasia. Additional levels examined. Electronically signed by: ??Brooklynn Dixon MD Verified: ??03/20/2017 ?Pathologist Performed at: ??-[facility] [place], [place], [place] ADDITIONAL STUDIES Immunohistochemistry Studies: Formalin-fixed, paraffin-embedded tissue sections are studied using the polymer technique with appropriate positive and negative controls. ?These IHC studies provide the pathologist with adjunctive diagnostic information. Antibody specificity has been verified by testing antibodies on a series of in-house tissues with known immunohistochemical performance characteristics. The clinical interpretation of any antibody positive staining or its absence is evaluated within the context of clinical presentation, morphology, histopathological criteria and other diagnostic tests. Block ? Antibody ? Result (Positive/Negative) A1 ? p53 ? Weak and patchy staining in columnar mucosa, ? supporting the diagnosis CLINICAL INFORMATION Specimen Submitted: A - 37-36cm B - 35-34 cm esophageall biopsies Clinical History: History of non-dysplastic Florence ??'s, three year surveillance biopsies Clinical Diagnosis: History of non-dysplastic Florence ??'s, three year surveillance biopsies SPECIMEN PROCESSING ??A - Labeled/Fixative: 37-36 cm, formalin. Quantity/Size: Six, averaging 0.2 cm. Tissue Description: Polypoid harrington soft tissues. Sections/Processing: (T2) B - Labeled/Fixative: 35-34 cm esophageal biopsies, formalin. Quantity/Size: Multiple, ranging 0.1-0.5 cm. Tissue Description: Polypoid harrington soft tissues Sections/Processing: (T2) ??shb 03/20/2017 7:[address] [facility] 03/14/2017 1:25 PM EST Rehana Puri MD PATHOLOGY/CYTOLO GY ORDERABLES Performing Organization Address [facility] [place] [address] * Specimen to Pathology (surgical or derm) (03/14/2017 1:25 PM EST) AP Specimen 03/14/2017 1:25 PM EST 03/14/2017 2:[address] [facility] - 03/14/2017 2:57 PM EST Specimen requisition ordered. ??Separate Pathology report to follow Resulting Agency Comment Spec In Lab Rehana Puri MD PATHOLOGY/CYTOLO GY ORDERABLES Performing Organization Address [facility] [place] [address] * Specimen to Pathology (surgical or derm) (03/14/2017 1:25 PM EST) AP Specimen 03/14/2017 1:25 PM EST 03/14/2017 2:[address] [facility] - 03/14/2017 2:57 PM EST Specimen requisition ordered. ??Separate Pathology report to follow Resulting Agency Comment Spec In Lab Rehana Puri MD PATHOLOGY/CYTOLO GY ORDERABLES Performing Organization Address [facility] [place] [address] * UPPER GI ENDOSCOPY (03/14/2017 12:59 PM EST) UPPER GI ENDOSCOPY [facility] Endoscopy ___ Procedure Date: 03/14/2017 12:59 PM ? Patient Name: Remy Cazares ? Date of : 1955 ? Age: 61 ? Order #: [id number] ? Instrument Name: [id number] ? ___ Procedure: ? Upper GI endoscopy Indications: ? Follow-up of Florence's esophagus Providers: ? Rehana Copeland MD, Megan ? Darrian, RN, Jeffy Medina, Senior Bookkeeper Referring : ?Brandin Koenig MD Medicines: ? Midazolam 4 mg IV, Fentanyl 150 ? micrograms IV, Benzocaine spray Complications: ? [...] and informed consent was obtained. ? - Abdominal Examination: bowel sounds ? present, abdomen soft and non-tender, ? no masses or organomegaly noted. ? - CV Examination: normal. ? - Mental Status Examination: alert ? and oriented. ? - Respiratory Examination: clear to ? auscultation. ? - ASA Grade Assessment: I - A normal, ? healthy patient. ? - After reviewing the [...] accomplished ? without difficulty. ? Findings: ? The esophagus and gastroesophageal [...] the Z-line (34 cm from the incisors). No visible ? abnormalities were present. Mucosa was biopsied with ? a cold forceps for histology. A total of 2 specimen ? bottles were sent to pathology. ? A small hiatal hernia was found. The proximal extent ? of the gastric folds (end of tubular esophagus) was ? 37 cm from the incisors. The hiatal narrowing was 40 ? cm from the incisors. ? The stomach was normal. ? The examined duodenum was normal. ? Moderate Sedation: ? Moderate (conscious) sedation was administered by the ? endoscopy nurse and supervised by the endoscopist. ? The following parameters were monitored: oxygen ? saturation, heart rate, blood pressure, and response ? to care. 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 ? Biopsied. ? - Small hiatal hernia. ? - Normal stomach. ? - Normal examined duodenum. Recommendation: ?- Continue present medications. ? - Await pathology results. ? - Repeat upper endoscopy in 3 to 5 ? years for surveillance based on ? pathology results. ? Attending Participation: ? I personally performed the entire procedure. I was ? present during the intraservice time as documented by ? the sedation RN. ? Rehana Copeland MD 03/14/2017 1:46:26 PM This report has been signed electronically. Number of Addenda: 0 Note Initiated On: 03/14/2017 12:59 PM [employer]OVATION 03/14/2017 12:5 9 PM EST Brandin Koenig MD GENERAL SURGICAL ORD ERABLES [employer]ATION documented in this encounter Visit Diagnoses Not on filedocumented in this encounter Administered Medications Inactive Administered Medications - up to 3 most recent administrations Medication Order MAR Action Action Date Dose Rate Site lactated Ringers infusion 100 mL/hr, Intravenous, CONTINUOUS, Starting on Mon03/14/17 at 1215, Until Mon03/14/17 at 1448, Endoscopy (Day of Procedure) New Bag 03/14/2017 12:15 PM EST 100 mL/hr 100 mL/hr documented in this encounter Active and Recently Administered Medications Times are shown in EST. Continuous Medication Order 03/12/2017 03/13/2017 03/14/2017 lactated Ringers infusion (CANCELED) 100 mL/hr, Intravenous, CONTINUOUS, Starting on Mon03/14/17 at 1215, Until Mon03/14/17 at 1448, Endoscopy (Day of Procedure) 1215 (New Bag - Prov ider: Stephany Leon RN) PRN Medication Order 03/12/2017 03/13/2017 03/14/2017 benzocaine (TOPEX) 20 % topical aerosol (CANCELED) ONCE PRN, Starting on Mon03/14/17 at 1316, Until Mon03/14/17 at 1703, Intra-Operative (Intra-Procedure) 1316 (Given - Provid er: Megan Colmenares RN - Comment: 3 sprays) fentaNYL 50 mcg/mL multi-dose injection (CANCELED) ONCE PRN, Starting on Mon03/14/17 at 1316, Until Mon03/14/17 at 1703, Intra-Operative (Intra-Procedure), Routine 1316 (Given - Provid er: Megan Colmenares RN)1318 (Given - Provider: Megan Colmenares RN) midazolam (PF) (VERSED) 1 mg/mL multi-dose injection (CANCELED) ONCE PRN, Starting on Mon03/14/17 at 1316, Until Mon03/14/17 at 1703, Intra-Operative (Intra-Procedure), Routine 1316 (Given - Provid er: Megan Colmenares RN)1318 (Given - Provider: Megan Colmenares RN)1323 (Given - Provider: Megan Colmenares RN) documented in this encounter Care Teams Water And Gas Helper Relationship Specialty Start Date End Date Brandin Koenig MD [address] [place] [address] PCP - General 01/26/10 09/30/19 documented as of this encounter
--- OUTSIDE RECORDS SUMMARY | 2023-09-28 02:47 | XMS_ITS | Encounter Summary ---
Author Organization [facility] [place] [address] Care Team Providers Care Rate Marker Name Role Phone Sheree Marcano MD Primary Care Provider [phone] Encounter Details Date Type Department Care Team (Late st Contact Info) Description 10/10/2019 Telephone [place] [phone] Gonsalo Logan Social History Tobacco Use Types Packs/Day Years [...] encounter Miscellaneous Notes * Telephone Encounter - Gonsalo Logan - 10/10/2019 3:32 PM EDT Romy called to cancel pt procedure. Did not want to reschedule. documented in this encounter Plan of Treatment Not on file documented as of this encounter Visit Diagnoses Not on filedocumented in this encounter Care Teams Rate Marker Relationship Specialty Start Date End Date Sheree Marcano MD [address] [place] [address] PCP - General Family Medicine 10/01/19 documented as of this encounter
--- OUTSIDE RECORDS SUMMARY | 2023-09-28 02:47 | XMS_ITS | Encounter Summary ---
Author Organization [facility] Address [address] [place] [address] Care Team Providers Care Heel Seater Name Role Phone oRxy Armendariz MD Primary Care Provider [phone] Unknown, Provider Primary Care Provider [phone] Encounter Details Date Type Department Care Team (Late st Contact Info) Description 07/12/2022 Lab Requisition [facility] Pathology & Laboratory Medicine - [address] [address] Roxy Armendariz MD [address] [place] [phone] Hyperlipidemia, unspecified Social History Tobacco Use Types Packs/Day Years [...] Procedure Name Priority Date/Time Associated Diagnosis Comments LIPID PROFILE (INCLUDES CHOLESTEROL, TRIGLYCERIDES, HDL, LDL) Routine 07/11/2022 15:01 EDT Hyperlipidemia, unspecified documented in this encounter Results * LIPID PROFILE (INCLUDES CHOLESTEROL, TRIGLYCERIDES, HDL, LDL) (07/11/2022 15:01 EDT) Cholesterol 199 <200 mg/dL 07/12/2022 21:24 T [facility] Comment:Note that therapeuti c goals will differ between patients based on cardiac risk factors and current medical therapy. HDL 51 >=40 mg/dL 07/12/2022 21:24 T [facility] Comment:Note that therapeuti c goals will differ between patients based on cardiac risk factors and current medical therapy. LDL, Calculated 125 <160 mg/dL 21:24 T [facility] Comment:Note that therapeuti c goals will differ between patients based on cardiac risk factors and current medical therapy. Triglyceride 115 <=150 mg/dL 07/12/2022 21:24 T [facility] Comment:Note that therapeuti c goals will differ between patients based on cardiac risk factors and current medical therapy. Chol/HDL Ratio 3.9 See Note 07/12/2022 21:24 [facility] Comment:No reference range h as been established for CHOL/HDL ratio. Non HDL Cholesterol 148 <160 mg/dL 07/12/2022 21:24 T [facility] Comment:Note that therapeuti c goals will differ between patients based on cardiac risk factors and current medical therapy. Blood VENOUS BLOOD / Unknown 07/11/2022 15:01 EDT 07/12/2022 20:41 EDT Roxy Armendariz MD CHEMISTRY & BLOOD GA S ORDERABLES Performing Organization Address [facility]/State/[facility] Co de Phone Number [facility] [address] [place] [address] documented in this encounter Visit Diagnoses Diagnosis Hyperlipidemia, unspecified documented in this encounter Care Teams Heel Seater Relationship Specialty Start Date End Date Roxy Armendariz MD [address] [place] [address] PCP - General Urgent Care Medicine 12/04/20 09/09/22 Unknown, ProviderMD PCP - General 04/26/23 documented as of this encounter
--- OUTSIDE RECORDS SUMMARY | 2023-09-28 02:47 | XMS_ITS | Encounter Summary ---
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 [address] UPPER GASTROINTESTINAL ENDOSCOPY,WITH BIOPSY SINGLE OR MULTIPLE [...] better as expected. Monday-Monday Same Day Endo [phone] 7a-8p Otherwise contact [phone] and ask to speak to the spice cleaner communication equipment mechanic Follow-up care is a mcneal part of [...] Copeland MD - 03/14/2017 1:28 PM EST [facility] Operative Note Patient Name: Remy Cazares : [id number] MR#: [id number] Case Date: 03/14/2017 Surgeon: Surgeon(s) and Role: * Rehana Copeland MD - Primary Preoperative diagnosis: 3 yr fu from 11/26/13 barretts surveillance non dysplastic barretts esophagus Postoperative diagnosis: Florence's esophagus, biopsies taken Procedure(s) (LRB): UPPER GASTROINTESTINAL ENDOSCOPY,WITH BIOPSY SINGLE OR MULTIPLE (WRVU 2.49) (N/A) Attestation: Case Date: 03/14/2017 REHANA COPELAND MD 03/14/2017 Full procedure note is documented under the Procedure section of [facility]. documented in this encounter Plan of [...] (03/14/2017 1:25 PM EST) FINAL DIAGNOSIS (AP) [id number] ? Location: 4T; EA12; A The signing [...] Dixon MD Verified: ??03/20/2017 ?Pathologist Performed at: ??-[facility] Dept. of Pathology, [place], [place] ADDITIONAL STUDIES Immunohistochemistry Studies: Formalin-fixed, paraffin-embedded [...] tissues Sections/Processing: (T2) ??shb 03/20/2017 7:42 PM [facility] 03/14/2017 1:25 PM EST Rehana Puri MD PATHOLOGY/CYTOLO GY ORDERABLES Performing Organization Address [facility] [place] [address] * Specimen to Pathology (surgical or derm) (03/14/2017 1:25 PM EST) AP Specimen 03/14/2017 1:25 PM EST 03/14/2017 2:[address] [facility] - 03/14/2017 2:57 PM EST Specimen requisition ordered. ??Separate Pathology report to follow Resulting Agency Comment Spec In Lab Rehana Puri MD PATHOLOGY/CYTOLO GY ORDERABLES Performing Organization Address [facility] [place] [address] * Specimen to Pathology (surgical or derm) (03/14/2017 1:25 PM EST) AP Specimen 03/14/2017 1:25 PM EST 03/14/2017 2:[address] [facility] - 03/14/2017 2:57 PM EST Specimen requisition ordered. ??Separate Pathology report to follow Resulting Agency Comment Spec In Lab Rehana Puri MD PATHOLOGY/CYTOLO GY ORDERABLES Performing Organization Address [facility] [place] [address] * UPPER GI ENDOSCOPY (03/14/2017 12:59 PM EST) UPPER GI ENDOSCOPY [facility] Endoscopy ___ Procedure Date: 03/14/2017 12:59 PM ? Patient Name: Remy Cazares ? Date of : 1955 ? Age: 61 ? Order #: [id number] ? Instrument Name: [id number] ? ___ Procedure: ? Upper GI endoscopy Indications: ? Follow-up of Florence's esophagus Providers: ? Rehana Copeland MD, Megan ? Darrian, RN, Jeffy Medina, Hide Selector Referring : ?Brandin Koenig MD Medicines: ? [...] Action Action Date Dose Rate Site benzocaine (TOPEX) 20 % topical aerosol ONCE PRN, Starting on Mon03/14/17 at 1316, Until Mon03/14/17 at 1703, Intra-Operative (Intra-Procedure) Given 03/14/2017 1:16 PM EST 1 each fentaNYL 50 mcg/mL multi-dose injection ONCE PRN, Starting on Mon03/14/17 at 1316, Until Mon03/14/17 at 1703, Intra-Operative (Intra-Procedure), Routine Given 03/14/2017 1:18 PM EST 50 mcg Given 03/14/2017 1:16 PM EST 100 mcg lactated Ringers infusion 100 mL/hr, Intravenous, CONTINUOUS, Starting on Mon03/14/17 at 1215, Until Mon03/14/17 at 1448, Endoscopy (Day of Procedure) New Bag 03/14/2017 12:15 PM EST 100 mL/hr 100 mL/hr midazolam (PF) (VERSED) 1 mg/mL multi-dose injection ONCE PRN, Starting on Mon03/14/17 at 1316, Until Mon03/14/17 at 1703, Intra-Operative (Intra-Procedure), Routine Given 03/14/2017 1:23 PM EST 1 mg Given 03/14/2017 1:18 PM EST 1 mg Given 03/14/2017 1:16 PM EST 2 mg documented in this encounter Active [...] topical aerosol (CANCELED) ONCE PRN, Starting on e 03/14/17 at 1316, Until Mon03/14/17 at 1703, Intra-Operative [...] RN) documented in this encounter Care Teams Trip Motor Operator Relationship Specialty Start Date End Date Brandin Koenig MD [address] [place] [address] PCP - General 01/26/10 09/30/19 documented as of this encounter
--- OUTSIDE RECORDS SUMMARY | 2023-09-28 02:48 | XMS_ITS | Encounter Summary ---
Author Organization [facility] Address [address] [place] [address] Care Team Providers Care Brand Communications Manager Name Role Phone Roxy Armendariz MD Primary Care Provider Reason for Visit * Reason Comments New Patient Visit Left inguinal hernia * Consult (Routine) - Receiving Office to Obtain Authorization Specialty Diagnoses / Procedures Referred By Long garza Referred To Contact General Surgery Diagnoses Left inguinal hernia Roxy Armendariz MD [address] [place] [phone] [place] [id number] Gen Surgery [address] [place] [address] Referral ID Status Reason Start Date Expiration Date Visits Requested Visits Authorized [id number] Receiving Office to Obtain Authorization 1 1 Encounter Details Date Type Department Care Team (Late st Contact Info) Description 02/10/2021 10:30 EST Office Visit [facility] General Surgery - [address] [address] Usama Garrett MD [address] [facility], [address] [place] [id number] Left inguinal hernia (Primary Dx) Social History [...] Sign Reading Time Taken Comments Blood Pressure 146/91 02/10/2021 1016 EST Pulse 71 02/10/2021 1016 EST Temperature - - Respiratory Rate - - Oxygen Saturation - - Inhaled Oxygen Concentration - - Weight 112.9 kg (249 lb) 02/10/2021 1016 EST Height 177.8 cm (5' 10) 02/10/2021 1016 EST Body Mass Index 35.73 02/10/2021 1016 EST documented in this encounter Patient Instructions * Patient Instructions* Usama Garrett MD - 02/10/2021 10:30 EST Compression shorts for physical activity. documented in this encounter Progress Notes * Usama Garrett MD - 02/10/2021 1030 EST Colorectal Surgery Clinic Note Chief Complaint: Left groin pain HPI: Patient is a 65 y.o. male being seen at the request of Roxy Armendariz MD for evaluation of possible left inguinal hernia patient reports of roughly 6-month history of left groin pain associated with heavy lifting. He denies any bulge or obstructive symptoms. He is a retired [employer] employee but stilldoes a lot of heavy lifting including going to the gym. His pain is intermittent and last for short periods of time. He was evaluated primary care doctor did not feel hernia. He was subsequently sentfor ultrasound which identified possible direct inguinal hernia. No prior hernia surgery in the past. No abdominal operations. 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 Review of Symptoms: Reviewed in detail. He has no pertinent positives on extensive review of systems other than as described above. PMH PSH Past Medical History: Diagnosis Date ??? Florence esophagus ??? GERD (gastroesophageal reflux disease) Past Surgical History: Procedure Laterality Date ??? TONSILLECTOMY ??? UPPER GI ENDOSCOPY Social History Family history Social History Tobacco Use ??? Smoking status: Former Smoker ??? Smokeless tobacco: Never Used Substance Use Topics ??? Alcohol use: Yes Comment: reg Family History Problem Relation Age of Onset ??? Arthritis Mother ??? Cancer Mother ??? Depression Mother Current Outpatient Medications Medication ??? omeprazole (PRILOSEC) 20 mg capsule No current facility-administered medications for this visit. Allergies No Known Allergies Objective: Blood pressure (!) 146/91, pulse 71, height 177.8 cm (70), weight (!) 112.9 kg (249 lb). Physical Exam: Gen: awake, alert, and oriented x 3, NAD Neck: soft, no thyromegaly, no carotid bruits, no cervical lymphadenopathy CV: RRR no M/R/G Pulm: CTA bilat, no wheezes or rhonchi Abd: Possible small right inguinal hernia. Palpable weakness without obvious herniation in the leftinguinal region. Ext: warm, well perfused,no edema Frailty Assessment: 1: Very Fit Data Review: Labs: No results found for: WBC, HGB, HCT, PLT No results found for: CREATININE, BUN, NA, K, CL, CO2, CALCIUM No results found for: TP, LABALBU, PREALBUMIN, TBIL, INR, CRP Radiology: Ultrasound demonstrating 1.3 cm direct defect in the left inguinal canal. Assessment: Remy Cazares is a(n) 65 y.o. old male with a minimally symptomatic left inguinal hernia and possible asymptomatic right inguinal hernia. We discussed his available treatment options including watchful waiting versus surgical repair. The risks and benefits of surgery were also reviewed. At this point the patient would like to pursue watchful waiting. I encouraged him to obtain compression shorts for physical activity to help minimize his symptoms. I will see him back in clinic in 1 year for repeat evaluation. He should call the office sooner if his symptoms worsen. Plan: Follow-up 1 year Usama Garrett MD 02/10/2021 10:47 documented in this encounter Plan of Treatment Not on file documented as of this encounter Visit Diagnoses Diagnosis Left inguinal hernia- Primary Inguinal hernia without mention of obstruction or gangrene, unilateral or unspecified, (not specified as recurrent) documented in this encounter Care Teams Brand Communications Manager Relationship Specialty Start Date End Date Roxy Armendariz MD [address] [place] [address] PCP - General Urgent Care Medicine 12/04/20 09/09/22 documented as of this encounter
--- OUTSIDE RECORDS SUMMARY | 2023-09-28 02:48 | XMS_ITS | Encounter Summary ---
Author Organization [facility] Address [address] [place] [address] Care Team Providers Care Library Science Professor Name Role Phone Brandin Koenig MD Primary Care Provider [phone] Encounter Details Date Type Department Care Team ([facility] st Contact Info) Description 09/13/2016 Results Only [facility] [phone] Milton Pino PA-C [address] [address] Social History Tobacco Use Types Packs/Day Years Used Date Smoking Tobacco: Former Smokeless Tobacco: Never Alcohol Use Standard Drinks/Week Comments Yes 0 (1 standard drink = 0.6 oz pur e alcohol) reg Sex and Gender Information Value Date Recorded Sex Assigned at Not on file Gender Identity Not on file Sexual Orientation Not on file documented as of this encounter Plan of Treatment Not on file documented as of this encounter Procedures Procedure Name Priority Date/Time Associated Diagnosis Comments CHLAMYDIA/N. GONORRHOEAE AMPLIFIED NUCLEIC ACID Routine 09/13/2016 16:17 EDT SYPHILIS SEROLOGY Routine 09/13/2016 16: 16 EDT documented in this encounter Results * CHLAMYDIA/N. GONORRHOEAE AMPLIFIED RNA (09/13/2016 16:17 EDT) Chlamydia Result Negative 09/15/2016 12:42 EDT [facility] GC Result Negative 09/15/2016 12:42 EDT [facility] URETHRAL ROUTE / Unknown 09/13/2016 16:17 EDT 09/13/2016 21:40 EDT Milton Pino PA-C MICROBIOLOGY - GENER AL ORDERABLES Performing Organization Address City/[facility]/ZIP Co de Phone Number [facility] [address] [place] [address] * SYPHILIS SEROLOGY (09/13/2016 16:16 EDT) Syphilis Serology Negative 09/14/2016 15:17 EDT [facility] Comment:Reference Range: Neg ative BLOOD SPECIMEN / Unknown 09/13/2016 16:16 EDT 09/13/2016 20:55 EDT Milton Pino PA-C IMMUNOLOGY AND SEROL OGY ORDERABLES Performing Organization Address City/[facility] Co de Phone Number [facility] [address] [place] [address] documented in this encounter Visit Diagnoses Not on filedocumented in this encounter Care Teams Library Science Professor Relationship Specialty Start Date End Date Brandin Koenig MD [address] [place] [address] PCP - General 06/09/10 02/02/20 documented as of this encounter
--- OUTSIDE RECORDS SUMMARY | 2023-09-28 02:48 | XMS_ITS | Encounter Summary ---
Author Organization [facility] Address [address] [place] [address] Care Team Providers Care Oceanography Teacher Name Role Phone Roxy Armendariz MD Primary Care Provider [phone] Reason for Visit * Reason Onset Date Comments Appointment Related 01/14/2022 Encounter Details Date Type Department Care Team (Late st Contact Info) Description 01/14/2022 Telephone [facility] Memory Program - Medical Office Building [address] [place], [place] [id number] Candy Loaiza LICSW [address] [facility] Medical Office Building, [address] [place] [address] Appointment Related Social History Tobacco Use Types Packs/Day Years [...] Miscellaneous Notes * Telephone Encounter - Candy Loaiza LICSW - 01/14/2022 0856 EST 01/14/22, Remy was in touch to let me know he cannot attend the [facility] follow up group today. His mother and they are having a celebration of life for her this afternoon. He would like to attend the meeting next month to say good bye to other group members. Candy JACOBO documented in this encounter Plan of Treatment Not on file documented as of this encounter Visit Diagnoses Not on filedocumented in this encounter Care Teams Oceanography Teacher Relationship Specialty Start Date End Date Roxy Armendariz MD [address] [place] [address] PCP - General Urgent Care Medicine 12/04/20 09/09/22 documented as of this encounter
--- OUTSIDE RECORDS SUMMARY | 2023-09-28 02:48 | XMS_ITS | Encounter Summary ---
Author Organization [facility] Address [address] [place] [address] Care Team Providers Care Cash Analyst Name Role Phone Brandin Koenig MD Primary Care Provider [phone] Reason for Visit * Reason Comments Dysuria Encounter Details Date Type Department Care Team (Late st Contact Info) Description 06/09/2010 19:11 EDT - 06/09/2010 20:46 EDT Hospital Encounter [facility] [address] [place] [address] Nivia Barriga PA-C [address] [place] [phone] Dysuria; Prostatitis, acute Discharge Disposition: Home or Self Care Social History Tobacco Use Types Packs/Day Years Used Date Smoking Tobacco: Never Smokeless Tobacco: Never Alcohol Use Standard Drinks/Week Comments Yes 0 (1 standard drink = 0.6 oz pur e alcohol) reg Sex and Gender Information Value Date Recorded Sex Assigned at Not on file Gender Identity Not on file Sexual Orientation Not on file documented as of this encounter Last Filed Vital Signs Vital Sign Reading Time Taken Comments Blood Pressure 188/98 06/09/20102004 EDT Pulse 82 06/09/20102004 EDT Temperature 37.1 ??C (98.7 ??F) 06/09/20102004 EDT Respiratory Rate 16 06/09/20102004 EDT Oxygen Saturation - - Inhaled Oxygen Concentration - - Weight - - Height - - Body Mass Index - - documented in this encounter Discharge Instructions * Attachments The following attachments cannot be sent through Care Everywhere. * PROSTATITIS: AFTER YOUR VISIT (ICELANDIC) documented in this encounter Medications at Time of Discharge Medication Sig Dispensed Refills Start Date End Date omeprazole (PRILOSEC) 20 mg capsule Take 1 Capsule by mouth daily. ciprofloxacin (CIPRO) 500 mg tablet Take 1 Tab by mouth every 12 hours for 10 days. 20 Tab 0 06/09/2010 06/19/2010 clonAZEPAM (KLONOPIN) 0.5 mg tablet Take 0.5 mg by mouth daily. 06/09/2010 12/30/2013 documented as of this encounter Ordered Prescriptions Prescription Sig Dispensed Refills Start Date End Da te ciprofloxacin (CIPRO) 500 mg tablet Take 1 Tab by mouth every 12 hours for 10 days. 20 Tab 0 06/09/2010 06/19/2010 documented in this encounter Discharge Disposition Disposition Code Departure Means Destination Home or Self Care Car Home documented in this encounter ED Notes * Nivia Barriga PA - 06/09/2010 2109 EDT DOS: 06/09/2010 Chief Complaint Patient presents with ??? Dysuria The patient is a 54 y.o. male who presents today with Dysuria The history is provided by the patient. Dysuria This is a new problem. The current episode started 2 days ago. The problem occurs every urination. The problem has been gradually worsening. The pain is mild. There has been no fever. Sexually Active: same partner for 30 years no risk of STD. Associated symptoms include frequency and urgency. Pertinent negatives include no nausea, no hematuria, no hesitancy and no flank pain. He has tried nothingfor the symptoms. sounds as though patient has had an enlarged prostate in the past Review of Systems Constitutional: Negative for fever, activity change, appetite change and fatigue. HENT: Negative. Eyes: Negative. Respiratory: Negative. Negative for cough. Cardiovascular: Negative. Gastrointestinal: Negative. Negative for nausea, abdominal pain and constipation (patient has noticed slight semen type discharge from his penis when he has a bowel movement). Genitourinary: Positive for dysuria, urgency and frequency. Negative for hesitancy, hematuria, flank pain, scrotal swelling, penile pain and testicular pain. Penile swelling: Patient does notice verysmall amount of erythema at the tip of his urethra. Difficulty urinating: hesitation with a slow stream for several months. Musculoskeletal: Negative. Skin: Negative. Negative for rash. All other systems reviewed and are negative. No current facility-administered medications on file. Current outpatient prescriptions Medication Sig Dispense Refill ??? clonAZEPAM (KLONOPIN) 0.5 mg tablet Take 0.5 mg by mouth daily. ??? omeprazole (PRILOSEC) 20 mg capsule Take 20 mg by mouth daily. ??? ciprofloxacin (CIPRO) 500 mg tablet Take 1 Tab by mouth every 12 hours for 10 days. 20 Tab 0 No Known Allergies History reviewed. No pertinent past medical history. History Substance Use Topics ??? Smoking status: Never Smoker ??? Smokeless tobacco: Never Used ??? Alcohol Use: Yes reg History reviewed. No pertinent family history. BP 188/98 Pulse 82 Temp(Src) 98.7 ??F (37.1 ??C) (Temporal) Resp 16 Physical Exam Nursing note and vitals reviewed. Constitutional: He is oriented to person, place, and time. He appears well- developed and well-nourished. No distress. HENT: Head: Normocephalic. Eyes: Extraocular motions are normal. Pupils are equal, round, and reactive to light. Neck: Normal range of motion. Pulmonary/Chest: Effort normal. No respiratory distress. Genitourinary: Rectum normal. No penile tenderness. Patient with mild discomfort of prostate palpation. Very small, 2 mm area of erythema and swelling at the urethra. No lymphadenopathy Neurological: He is alert and oriented to person, place, and time. Skin: Skin is warm and dry. He is not diaphoretic. Consult orders: None PCP: BRANDIN KOENIG MD Results for orders placed during the hospital encounter of 06/09/10 POCT URINE DIPSTICK Component Value Range ??? Color, UA Yellow ??? Clarity, UA Clear ? ? Glucose, UA Negative > Negative (mg/dL) ? ? Bilirubin, UA Negative > Negative ? ? Ketones, UA Negative > Negative (mg/dL) ? ? Spec Grav, UA 1.025 > 1.010, 1.015, 1.020, 1.025 ? ? Blood, UA 2+ (*) > Negative ??? pH, UA 5.5 4.6 - 8.0 ? ? Protein, UA Negative > Negative (mg/dL) ??? Urobilinogen, UA 0.2 0.2 - 1.0 (E.U./dL) ? ? Nitrite, UA Negative > Negative ? ? Leuk Esterase Negative > Negative ??? Comment Radiology orders: None Procedures Course: Discussed with patient likely prostatitis we'll treat with ciprofloxacin he is to followup with hisregular provider 1. Dysuria (788.1) POCT URINE DIPSTICK, POCT URINE DIPSTICK 2. Prostatitis, acute (601.0A) Dr. Ishmael Restrepo was available for consultation during my care of this patient. MDM 06/09/2010 21:09 * Nida Rose RN - 06/09/20102016 EDT Asked for dirty and clean urine sample * Nida Rose RN - 06/09/20102002 EDT Noted some lower groin pain 2 days ago, now has pain when urinating, documented in this encounter Miscellaneous Notes * Scanned Note-Null - Inpatient, Physician - 06/09/2010 0000 EDT documented in this encounter Plan of Treatment Not on file documented as of this encounter Procedures Procedure Name Priority Date/Time Associated Diagnosis Comments POCT URINE DIPSTICK, CLINITEK STAT 06/09/2010 20:27 EDT Dysuria documented in this encounter Results * (ABNORMAL) POCT URINE DIPSTICK (06/09/2010 20:27 EDT) Color, UA Yellow POINT OF CARE Clarity, UA Clear POINT OF CARE Glucose, UA Negative Negative mg/dL POINT OF CARE Bilirubin, UA Negative Negative POINT OF CARE Ketones, UA Negative Negative mg/dL POINT OF CARE Spec Grav, UA 1.025 1.010, 1.015, 1.020, 1.025 POINT OF CARE Blood, UA 2+(A) Negative POINT OF CARE pH, UA 5.5 4.6 - 8.0 POINT OF CARE Protein, UA Negative Negative mg/dL POINT OF CARE Urobilinogen, UA 0.2 0.2 - 1.0 E.U./dL POINT OF CARE Nitrite, UA Negative Negative POINT OF CARE Leuk Esterase Negative Negative POINT OF CARE Comment POINT OF CARE Urine specimen (specimen) 06/09/2010 20:27 EDT Nivia Barriga PA-C POINT OF CARE TEST ORDERABLES POINT OF CARE documented in this encounter Visit Diagnoses Diagnosis Dysuria Prostatitis, acute Acute prostatitis documented in this encounter Historical Medications * This list may reflect changes made after this encounter. Medication Sig Dispensed Refills Start Date End Date omeprazole (PRILOSEC) 20 mg capsule Take 1 Capsule by mouth daily. clonAZEPAM (KLONOPIN) 0.5 mg tablet Take 0.5 mg by mouth daily. 06/09/2010 12/30/2013 added in this encounter Care Teams Cash Analyst Relationship Specialty Start Date End Date Brandin Koenig MD [address] [place] [id number] PCP - General 06/09/10 02/02/20 documented as of this encounter
--- OUTSIDE RECORDS SUMMARY | 2023-09-28 02:48 | XMS_ITS | Encounter Summary ---
Author Organization [facility] Address [address] [place] [address] Care Team Providers Care Slubber Operator Name Role Phone Roxy Armendariz MD Primary Care Provider [phone] Reason for Visit * Reason Comments Rib Pain Encounter Details Date Type Department Care Team (Late st Contact Info) Description 06/13/2021 9:45 EDT [facility]-In [facility] [address] [place] [id number] Elpidio Wasserman PA-C [address] [facility] [address] [place] [address] Rib pain on right side (Primary Dx); Right flank pain Social History Tobacco Use Types Packs/Day Years [...] Sign Reading Time Taken Comments Blood Pressure 144/80 06/13/2021 0913 EDT Pulse 62 06/13/2021 0913 EDT Temperature 36.7 ??C (98 ??F) 06/13/2021 0913 EDT Respiratory Rate 18 06/13/2021 0913 EDT Oxygen Saturation 97% 06/13/2021 0913 EDT Inhaled Oxygen Concentration - - Weight - - Height - - Body Mass Index - - documented in this encounter Progress Notes * Mely Cervantes MA - 06/13/2021 0945 EDT CC/HPI: Patient reports right side rib pain radiating towards back worsening throughout the day x 1week. With movement becomes more of a sharp/shooting pain. He has had broken ribs in the past on the opposite side. Denies recent injury. Covid Screening: In the last 72 hours, has the patient had: New or unusual cough, shortness of breath, new nasal congestion, sore throat, fever, chills, body aches, or new loss of taste or smell without a reasonable alternative diagnosis*? (If yes, assign to ARC) No In the past 10 days, has the patient had a positive Covid test OR a confirmed close Covid exposure (<6ft for > 15mins in 24hr period)? (if yes, assign to ARC, regardless of vaccination status) No Is the patient fully Covid vaccinated? One dose of J&J Approximate date of last dose? 11/24/20 *may be determined by RN or in discussion with available provider (DIRECTOR PARK's and CCA's can defer to Charge Nurse to complete triage when appropriate) PCP: Roxy Armendariz * Elpidio Schreiber PA-C - 06/13/2021 0957 EDT [facility] [place] [facility] Chief Complaint(s): Rib Pain HPI: Patient presents to express care today for evaluation of right-sided rib pain. Symptoms started just over a week ago. He states that he works for a [employer] company, had been lifting a heavy 50 to 60 pound bag of coins from the laundry room. Does not recall any specific sort of trauma to the right ribs, but the following day started to notice discomfort on his right side towards the back. He has continued to have discomfort in this area which is triggered by both touch and movement.He has not noticed any rashes, bruises, or swelling. He denies any associated fevers, shaking chills, chest pain, palpitations, shortness of breath, vomiting, postprandial increase in pain, urinary symptoms or bowel changes. He does state that at times, the pain is such that it makes him feel a little nauseous. He had not taken any irjl-mem-tqnxkik medicines for his symptoms up until about 2 to 3days ago, at which time he tried taking ibuprofen which did not seem to provide much relief. Yesterday, he took acetaminophen and had better relief of pain. He states that overall his pain seems a little bit better today than it has been, but he just wanted to be checked to be on the safe side. Past medical history is negative for CAD, hypertension, hyperlipidemia or diabetes. No known lung disorders. 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 He takes a PPI daily and has not had any breakthrough reflux symptoms. I have reviewed current problem list and current medications. ROS: See HPI Objective: Examination: Vitals: BP (!) 144/80 (BP Cuff Location: Left arm, BP Patient Position: Sitting, BP Cuff Sizes: Adult, large) Pulse 62 Temp 36.7 ??C (98 ??F) (Oral) Resp 18 SpO2 97% There is no height or weight on file to calculate BMI. Constitutional: well appearing, in no acute distress CV: regular rate and rhythm, no murmurs Lungs: clear to ascultation bilaterally MSK: There is reproducible tenderness to the right inferior latera/posterolateral ribs. There is small dime-sized area of resolving ecchymosis over the right lateral inferior ribs Abdomen: soft, not distended and not tender Skin: warm and dry Psych: normal mood and affect Neuro: speaking clearly and appropriately, moving all extremities. Assessment & Plan: 1. Rib pain on right side Symptoms are felt to be most consistent with muscle strain. No trauma to the area to raise concern for fracture. He has clear lungs and breath sounds throughout, suggesting against lung infection or pneumothorax as etiology of symptoms. He has a completely benign abdominal exam and his symptoms suggest against gallbladder pathology or other underlying gastrointestinal condition. His UA does show a trace of blood, though his history does not lend itself to that of a urinary tract infection/pyelonephritis or kidney stone. I have asked him to reach out to his PCP to have urine rechecked in a fewweeks to ensure resolution of microscopic hematuria. In the meantime, I would like for him to continue albb-rbd-taxvcii analgesics on a as needed basis. He may also use cold compresses and should partake in activity as tolerated. Return to express care as needed with any new or worsening symptoms. X-rays were considered and discussed with the patient given his history of rib fracture, however through shared decision making with the patient we opted to forego these today given that he did not have any direct trauma to the area. If symptoms do not improve may certainly revisit this. 2. Right flank pain See above - POCT URINE DIPSTICK, VISUAL READ ELPIDIO SCHREIBER PA-C documented in this encounter Plan of Treatment Not on file documented as of this encounter Procedures Procedure Name Priority Date/Time Associated Diagnosis Comments POCT URINE DIPSTICK, VISUAL READ Routine 06/13/2021 Right flank pain documented in this encounter Results * (ABNORMAL) POCT URINE DIPSTICK, VISUAL READ (06/13/2021) Color, UA Yellow [facility] Clarity, UA Clear [facility] Glucose, UA Negative . mg/dL [facility] Bilirubin, UA Negative Negative [facility] Ketones, UA Negative . mg/dL [facility] Spec Grav, UA 1.025 1.005 - 1.030 [facility] Blood, UA Trace(A) Negative [facility] pH, UA 5.5 4.6 - 8.0 [facility] Protein, UA Negative . mg/dL [facility] Urobilinogen, UA 0.2 0.2 - 1.0 E.U./dL [facility] Nitrite, UA Negative . [facility] Leuk Esterase Negative Negative [facility] Comment [facility] Urine URINE SPECIMEN COLLECTION, CLEAN CATCH / Unknown 06/13/2021 Elpidio Wasserman PA-C POINT OF CARE TEST ORDERABLES [facility] documented in this encounter Visit Diagnoses Diagnosis Rib pain on right side- Primary Chest pain, unspecified Right flank pain Abdominal pain, unspecified site documented in this encounter Historical Medications * This list may reflect changes made after this encounter. Medication Sig Dispensed Refills Start Date End Date Cholecalciferol, Vitamin D3, 25 mcg (1,000 unit) capsule Take by mouth. 11/23/2020 Lactobacillus acidophilus 10 billion cell capsule Take by mouth. Lysine 500 mg tablet Take 1 tab daily multivitamin (TAB-A-GILMER) tablet Take 1 Tablet by mouth daily. sildenafiL (REVATIO) 20 mg tablet Take by mouth as needed. 11/23/2020 Turmeric, Bulk, (CURCUMIN) 95 % powder zinc sulfate (ZINCATE) 50 mg zinc (220 mg) capsule Take 1 Capsule by mouth daily. added in this encounter Care Teams Slubber Operator Relationship Specialty Start Date End Date Roxy Armendariz MD [address] [place] [address] PCP - General Urgent Care Medicine 12/04/20 09/09/22 documented as of this encounter
--- OUTSIDE RECORDS SUMMARY | 2023-09-28 02:48 | XMS_ITS | Encounter Summary ---
Author Organization [facility] Address [address] [place] [address] Care Team Providers Care Lombardi Developer Name Role Phone Roxy Armendariz MD Primary Care Provider [phone] Reason for Visit * Reason Comments Follow-up Left inguinal hernia Encounter Details Date Type Department Care Team (Late st Contact Info) Description 03/30/2022 11:00 EST Office Visit [facility] General Surgery - [address] [address] Usama Garrett MD [address] [place] [address], [address] [place] [address] Left inguinal hernia (Primary Dx) [...] Sign Reading Time Taken Comments Blood Pressure 136/93 03/30/2022 1054 EST Pulse 59 03/30/2022 1054 EST Temperature - - Respiratory Rate - - Oxygen Saturation - - Inhaled Oxygen Concentration - - Weight 113.2 kg (249 lb 9.6 oz) 03/30/2022 1054 EST Height 177.8 cm (5' 10) 03/30/2022 1054 EST Body Mass Index 35.81 03/30/2022 1054 EST documented in this encounter Progress Notes * Concepcion Vaz - 03/30/2022 1100 EST [facility] Follow-Up Note Reason For Visit: Hernia follow up HPI: Mr. Cazares is a 64 yo male with PMH significant for GERD, Florence's esophagus and bilateral inguinal hernias. Reports no worsening of symptoms in the last year. Rarely notices a twinge of pain when laying downin bed. The pain is sharp and brief, and has only occurred 2x in the last year. Denies radiation ofpain. Rates pain 3/10. No pain with heavy lifting and the pain is not interfering with his daily activities, which include chopping wood and walking up to 5 miles. Not using compression shorts. No history of hernia repair. Review of Symptoms: Reviewed in detail. He has no pertinent positives on extensive review of systems other than as described above. PMH/PSH/Meds/Allergies: No change in history, medications, or allergies unless noted below. Objective: Blood pressure (!) 136/93, pulse 59, height 177.8 cm (70), weight (!) 113.2 kg (249 lb 9.6 oz). Physical Exam: Gen: awake, alert, and oriented x 3, NAD CV: regular rate Pulm: breathing comfortably on room air Abd/groin: small left sided inguinal hernia, no appreciable right-sided hernia Ext: warm, well perfused, no edema Data Review: Labs: No results found for: WBC, HGB, HCT, PLT No results found for: CREATININE, BUN, NA, K, CL, CO2, CALCIUM No results found for: TP, LABALBU, PREALBUMIN, TBIL, INR, CRP No results found for: CEA, CA199, CA125 Radiology: N/A Assessment: Remy Cazares is a(n) 66 y.o. old male w PMH significant for Florence's esophagus, GERD, and bilateral inguinal hernias here for follow up on inguinal hernias. He is doing well and continues to have minimal symptoms. At this time, he has a small left inguinal hernia and no appreciable right sided hernia. Recommend that he continues watchful waiting and reach out with any changes/ concerns. Plan: - F/u in 1 year - May use compression shorts with activities Concecpion Milind MS3 03/30/2022 11:01 I saw and examined the patient and discussed with the resident/medical student/BILL POSTER INSTALLER team. I agree with the findings, and plan of care documented in the resident's/medical student's/BILL POSTER INSTALLER's note. Any additions/exceptions are noted below. Remy continues to have minimal symptoms from his left-sided inguinal hernia. No right-sided hernia appreciated on exam today. We will continue watchful waiting. Follow-up 1 year. Usama Garrett MD Colon and Rectal Surgery Division of General and Gastrointestinal Surgery documented in this encounter Plan of Treatment Not on file documented as of this encounter Visit Diagnoses Diagnosis Left inguinal hernia- Primary Inguinal hernia without mention of obstruction or gangrene, unilateral or unspecified, (not specified as recurrent) documented in this encounter Care Teams Lombardi Developer Relationship Specialty Start Date End Date Roxy Armendariz MD [address] [place] [address] PCP - General Urgent Care Medicine 12/04/20 09/09/22 documented as of this encounter
--- OUTSIDE RECORDS SUMMARY | 2023-09-28 02:48 | XMS_ITS | Encounter Summary ---
Author Organization [facility] Address [address] [place] [address] Care Team Providers Care Crm Marketing Manager Name Role Phone Roxy Armendariz MD Primary Care Provider Reason for Visit * Reason Comments Adjustment Disorder Acute Stress Encounter Details Date Type Department Care Team (Late st Contact Info) Description 04/08/2021 17:00 EST Telemedicine [facility] Memory Program - Medical Office Building [address] [place], [place] [id number] Candy Loaiza LICSW [address] [facility] Medical Office Building, [address] [place] [address] Adjustment disorder, unspecified type (Primary Dx) Social History Tobacco Use Types [...] on file documented as of this encounter Progress Notes * Candy Loaiza LICSW - 04/08/2021 1700 EST . Pt Name: Remy Cazares Date: 04/08/2021 Time spent:120 DX: (F43.20) Adjustment disorder, unspecified type (primary encounter diagnosis) TELEMEDICINE VIDEO VISIT Today's visit was provided through telemedicine video conferencing: The location of the patient :Home The location of the provider: Office The following staff and their role did participate in today's encounter visit: DONNELL Medeiros The concept of ???Telemedicine?? has been described to the patient.? Patient has been informed of the anticipated benefits and possible risks.? Patient understands the information provided regarding telemedicine, has had the opportunity to ask questions about this information, and all questions have been answered to patient???s satisfaction. Patient consents for the use of telemedicine in his/her medical care and authorizes the transmission of any relevant medical information to providers and their staff involved in patient???s medical or mental health care. Carer???s Group Progress Note Session 3 Number of group participants: 6 Group Treatment: This is an 8 week program for family caregivers that combines therapeutic principles for managing stress and caregiver burden for patients with chronic illness. It utilizes PST (CBT based problem solving therapy) and patient simulation in a group therapy context. The purpose is to improve self- efficacy, emotional regulation and enhance mastery in caregiver role. Goals for Session 3 1. Continue education and practice of 7 steps of Problem Solving Therapy (PST) 2. Share challenging situations in the past week, identifying individual and common themes 3. Utilize PST steps to address challenging situations 4. Participants develop a plan to implement developed solutions at home Individual participation: Remy reports he was able to take a day to be with friends and that this felt good. However, has been having more struggles with his mother. She is refusing care for her COPDand doesn't remember that she has a cancer dx. She has told paid caregivers she doesn't want their help. He feels frustrated and sad. Individual progress/ homework: Remy was helpful to another group member during a PST He appreciatesthat others share common problems to his. He receives feedback that his mother's refusals are typical in dementia. Treatment Plan: 1. Participate in the 8 week Carer???s Program offered through the Memory Program at [facility]. 2. Coordination with health care team as needed. Plan: RTC in one week for continuation of group treatment. DONNELL Olivas documented in this encounter Plan of Treatment Not on file documented as of this encounter Visit Diagnoses Diagnosis Adjustment disorder, unspecified type- Primary documented in this encounter Care Teams Crm Marketing Manager Relationship Specialty Start Date End Date Roxy Armendariz MD [address] [place] [address] PCP - General Urgent Care Medicine 12/04/20 09/09/22 documented as of this encounter
--- OUTSIDE RECORDS SUMMARY | 2023-09-28 02:48 | XMS_ITS | Encounter Summary ---
Author Organization [facility] Address [address] [place] [address] Care Team Providers Care Printing Press Machinist Name Role Phone Roxy Armendariz MD Primary Care Provider [phone] Reason for Visit * Reason Comments Adjustment Disorder Acute Stress Encounter Details Date Type Department Care Team (Late st Contact Info) Description 12/17/2021 16:00 EDT Telemedicine [facility] Memory Program - Medical Office Building [address] [place], [place] [id number] Candy Loaiza LICSW [address] [facility] Medical Office Building, [address] [place] [address] Adjustment disorder, unspecified type (Primary [...] Progress Notes * Candy Loaiza LICSW - 12/17/2021 1600 EDT . Pt Name: Remy Cazares Date: 12/17/2021 Time spent:60 minutes DX: (F43.20) Adjustment disorder, unspecified type (primary encounter diagnosis) Today's visit was provided through telemedicine video conferencing: I have reviewed the appropriateness of using video technology with the patient with regards to today's visit. The location of the patient : home Patient location state: [place] The location of the provider: Office Provider location state: {[place] The following people and their roles were present for today's visit: Appointment Provider: Candy Loaiza LICSW & Other group members Group Treatment: This is a once a month therapy group which follows the 8 week CARERS program. This group for family caregivers combines therapeutic principles for managing stress and caregiver burden. It integrates empirically supported elements individualized to the problems of this unique role for those living with chronic illness. The program employs principles of individual and group therapy and incorporates cognitive behavioral therapy. The purpose of this program is to improve self-efficacy, emotional regulation and enhance mastery of the caregiving role. The purpose of the follow up group is to consolidate gains achieved in the 8 week intensive program. There were 4 participants in today???s group. Today???s Goals: 1. Check in and review of problems and situations with caregiving; the review includes inquiry about skills carers have learned in group. Problem solving therapy may be used. 2. Identify additional resources that may be utilized to support carers. Individual Notes: Remy arrived late for the session due to other commitments and was apologetic forthis. Reports that not much has changed in his situation. His mother continues to decline in cognitive functioning watching this stimulates much grief and loss. He feels good about finding a new way to provide his mom with some stimulation- downloading funny animal videos on an IPad for her to watch. He was supportive of another group member whose father is resisting outside help, explaining how this was hard for him and his family too. Progress: Remy uses group well to reinforce positive approaches to care and to express emotions. Treatment Plan: 1. Participate in the follow up group which will meet 1 time per month for 1 year[facility]. Sessions will be 90 minutes in duration. 2. Collaboration with health care team as indicated. DONNELL Olivas [facility] Memory Program. documented in this encounter Plan of Treatment Not on file documented as of this encounter Visit Diagnoses Diagnosis Adjustment disorder, unspecified type- Primary documented in this encounter Care Teams Printing Press Machinist Relationship Specialty Start Date End Date Roxy Armendariz MD [address] [place] [address] PCP - General Urgent Care Medicine 12/04/20 09/09/22 documented as of this encounter
--- OUTSIDE RECORDS SUMMARY | 2023-09-28 02:48 | XMS_ITS | Encounter Summary ---
Author Organization [facility] Address [address] [place] [address] Care Team Providers Care Green Coffee Blender Name Role Phone Roxy Armendariz MD Primary Care Provider [phone] Reason for Visit * Reason Comments Acute Stress Adjustment Disorder Encounter Details Date Type Department Care Team (Late st Contact Info) Description 09/10/2021 16:00 EDT Telemedicine [facility] Memory Program - Medical Office Building [address] [place], [place] [phone] Candy Loaiza LICSW [address] [facility] Medical Office Building, [address] [place] [address] Adjustment disorder, unspecified type (Primary [...] Progress Notes * Candy Loaiza LICSW - 09/10/2021 1600 EDT . Pt Name: Remy Cazares Date: 09/10/2021 Time spent:90 minutes DX: (F43.20) Adjustment disorder, unspecified type [...] utilized to support carers. Individual Notes: Remy describes increased stressors in caring for mom- she has been more agitated,angry, uncooperative with caregivers for showers, has swallowing issues. Remy needs to be present to support care from paid caregivers and the cost of home care has gone up so that they can no longerafford respite care for him and his to get a break together. He and his have been living with his mom now for 7 months. States other people don't get it. Progress: Worked on strategies for addressing mom's agitation and benefited from education on dementia appropriate approaches. I always leave group with something new to try. Resonates with grief and loss expressed by others. Treatment Plan: 1. Participate in the follow up group which will meet 1 time per month for 1 year; [facility] the [facility]. Sessions will be 90 minutes in duration. 2. Collaboration with health care team as indicated. DONNELL Olivas [facility] Memory Program. documented in this encounter Plan of Treatment Not on file documented as of this encounter Visit Diagnoses Diagnosis Adjustment disorder, unspecified type- Primary documented in this encounter Care Teams Green Coffee Blender Relationship Specialty Start Date End Date Roxy Armendariz MD [address] [place] [address] PCP - General Urgent Care Medicine 12/04/20 09/09/22 documented as of this encounter
--- OUTSIDE RECORDS SUMMARY | 2023-09-28 02:48 | XMS_ITS | Encounter Summary ---
Author Organization [facility] Address [address] [place] [address] Care Team Providers Care Plexiglas Former Name Role Phone Roxy Armendariz MD Primary Care Provider [phone] Reason for Visit * Reason Comments Acute Stress Adjustment Disorder Encounter Details Date Type Department Care Team (Late st Contact Info) Description 04/29/2021 17:00 EST Telemedicine [facility] Memory Program - Medical Office Building [address] [place], [place] [id number] Candy Loaiza LICSW [address] [facility] Medical Office Building, [address] [place] [address] Adjustment disorder, unspecified type (Primary [...] Progress Notes * Candy Loaiza LICSW - 04/29/2021 1700 EST .Pt Name: Remy Cazares Date: 04/29/2021 Time spent:120 minutes DX: (F43.20) Adjustment disorder, unspecified type [...] in patient???s medical or mental health care. Time: 120 minutes Number of group participants: 6 Carer???s Group Progress Note Session 6 Group Treatment: This is an 8 week program for family caregivers that combines therapeutic principles for managing stress and caregiver burden for patients with chronic illness. It utilizes PST (CBT based problem solving therapy) and patient simulation in a group therapy context. The purpose is to improve self- efficacy, emotional regulation and enhance mastery in caregiver role. Goals for Session 6 1. Weekly check in and review of problems and situations with caregiving and result of homework. 2. Skills training through simulation: the SP and facilitators review role- playing instructions. 3. Two-three caregivers engage in simulation in each session. 4. Through simulation, group members identify skills and behavior changes to practice in their caregiving. 5. Group members are asked to reflect on their level of burden and ability to cope. Individual participation: Remy at check in identifies challenges with helping his mom prepare for doctors' appointments because she feels she doesn't need them. He offered this situation for simulation. He also reports on having some success with his mom when she was confused about time, by just playing along with her insistence that it was time for breakfast in the middle of the night. After sheate, she was open to going back to bed. Individual progress/ homework: Remy reports that simulation helped remind him of the importance of reflective listening and empathy in his approach with his mother. Another simulation by another group member helped him be more aware of his 's emotional needs as a co-caregiver. I feel a lot better after being in group tonight. Treatment Plan: 1. Participate in the 8 week Carer???s Program offered through the Memory Program at [facility]. 2. Coordination with health care team as needed. Plan: RTC in one week for continuation of group treatment. documented in this encounter Plan of Treatment Not on file documented as of this encounter Visit Diagnoses Diagnosis Adjustment disorder, unspecified type- Primary documented in this encounter Care Teams Plexiglas Former Relationship Specialty Start Date End Date Roxy Armendariz MD [address] [place] [address] PCP - General Urgent Care Medicine 12/04/20 09/09/22 documented as of this encounter
--- OUTSIDE RECORDS SUMMARY | 2023-09-28 02:48 | XMS_ITS | Encounter Summary ---
Author Organization [facility] Address [address] [place] [address] Care Team Providers Care Bowling Ball Engraver Name Role Phone Unavailable Primary Care Provider Unavailabl e Encounter Details Date Type Department Care Team (Late st Contact Info) Description 03/01/2005 Results Only [facility] - Maple conversion [address] [place] [address] Sergio Hinton, DO [address] [facility] [address] [place] [id number] Social History Tobacco Use Types Packs/Day Years Used Date Smoking Tobacco: Never Assessed Sex and Gender Information Value Date Recorded Sex Assigned at Not on file Gender Identity Not on file Sexual Orientation Not on file documented as of this encounter Plan of Treatment Not on file documented as of this encounter Procedures Procedure Name Priority Date/Time Associated Diagnosis Comments SURGICAL PATHOLOGY Routine 03/01/2005 0:00 EST documented in this encounter Results * SURGICAL PATHOLOGY (03/01/2005 0:00 EST) Pathology Report: SURGICAL PATHOLOGY REPORT Reports generated via electronic interface contain original data; however they are lacking the format of the original report. Caution should be taken when reading/interpreti ng unformatted reports. Name: ? DEEPA PERERA ? Accession #: ? [id number] ? : ? 1955 (Age: 49) ??M ? Collect Date: ? 03/01/2005 ? Location: ? [facility] ? Receive Date: ? 03/01/2005 ? Provider: SERGIO HINTON DO Copy to: LA DSOUZA MD ? Final Pathologic Diagnosis: A. ?Stomach, antrum, biopsy: 1. ?Antral mucosa with reactive changes. 2. ?No evidence of goblet cells, intestinal metaplasia, or dysplasia. 3. ?Esperanza stain is negative for Helicobacter pylori-like organisms. B. ?Esophagus, distal, biopsy: 1. ?Florence' s esophagus. ? - ??Goblet cells and intestinal metaplasia present. - ??No evidence of dysplasia. 2. ?Squamous mucosa with focal ulcer. 3. ?Gastric-type mucosa with reactive changes. 4. ?Esperanza stain is negative for Helicobacter pylori-like organisms. C. ?Esophagus, mid, biopsy: 1. ?Mild chronic esophagitis with reactive changes. 2. ?No evidence of intraepithelial eosinophils or neutrophils. 3. ?No columnar epithelium identified. Document reviewed and electronically signed by: Cathy Fitzpatrick MD Report ??Date: 03/04/2005 14:51 By the signature above, the attending physician certifies that he/she has personally conducted a gross and/or microscopic examination of the described specimens and rendered or confirmed the above diagnosis. Specimen(s) Received: A. ?Antrum bx B. ?Distal esophagus bx C. ?Mid esophagus bx Clinical History: ? Gastroscopy; PMH esophagitis; on Zantac Gross Description: ? Received in Hollande's fixative labelled [place] and antrum bx is a 0.4 x 0.2 x 0.1 cm fragment of soft tissue. Entirely submitted as (A). Received in Hollande's fixative labelled Sage and distal esophagus bx are four fragments of soft tissue averaging 0.3 x 0.2 x 0.1 cm. ??Entirely submitted as (B). Received in Hollande's fixative labelled Sage and mid esophagus bx is a 0.3 x 0.2 x 0.1 cm fragment of soft tissue. Entirely submitted as (C). ??(Dr. Berman)/[facility] End of Report HEBER YEN 03/01/2005 03/01/2005 15: 33 EST Sergio Hinton DO PATHOLOGY ORDER ELISABETH [facility] [address] [place] [address] documented in this encounter Visit Diagnoses Not on filedocumented in this encounter
--- OUTSIDE RECORDS SUMMARY | 2023-09-28 02:48 | XMS_ITS | Encounter Summary ---
Author Organization [facility] Address [address] [place] [address] Care Team Providers Care Bore Miner Operator Name Role Phone Brandin Koenig MD Primary Care Provider [phone] Encounter Details Date Type Department Care Team (Latest Contact Info) Description 09/13/2016 15:39 EDT - 09/13/2016 15:40 EDT Hospital Encounter [facility] - [address] [address] Milton Pino PA-C [address] [address] Discharge Disposition: Home or Self Care Social [...] on file documented as of this encounter Discharge Diagnoses Diagnosis Z11.3 Encounter for screening for infections with a predominantly sexual mode of transmission-Z11.3[ICD-10-CM] documented in this encounter Medications at Time of Discharge Medication Sig Dispensed Refills Start Date End Date omeprazole (PRILOSEC) 20 mg capsule Take 1 Capsule by mouth daily. documented as of this encounter Discharge Disposition Disposition Code Departure Means Destination Home or Self Care documented in this encounter Plan of Treatment Not on file documented as of this encounter Visit Diagnoses Not on filedocumented in this encounter Care Teams Bore Miner Operator Relationship Specialty Start Date End Date Brandin Koenig MD [address] [place] [address] PCP - General 06/09/10 02/02/20 documented as of this encounter
--- OUTSIDE RECORDS SUMMARY | 2023-09-28 02:48 | XMS_ITS | Encounter Summary ---
Author Organization [facility] Address [address] [place] [address] Care Team Providers Care Investigation Officer Name Role Phone Roxy Armendariz MD Primary Care Provider [phone] Reason for Visit * Reason Comments Acute Stress Adjustment Disorder Encounter Details Date Type Department Care Team (Late st Contact Info) Description 05/13/2021 17:00 EST Telemedicine [facility] Memory Program - Medical Office Building [address] [place], [place] [id number] Candy Loaiza LICSW [address] [facility] Medical Office Building, [address] [place] [address] Adjustment disorder, unspecified type (Primary [...] Progress Notes * Candy Loaiza LICSW - 05/13/2021 1700 EST .Pt Name: Remy Cazares Date: 05/13/2021 Time spent:120 DX: (F43.20) Adjustment disorder, unspecified type (primary encounter diagnosis) TELEMEDICINE VIDEO VISIT Today's visit was provided through telemedicine video conferencing: The location of the patient :Home [place] The location of the provider: Office [place] The following staff and their role did [...] in patient???s medical or mental health care. Number of Participants: 5 Carer???s Group Progress Note Session 8 Group Treatment: This is an 8 week program for family caregivers that combines therapeutic principles for managing stress and caregiver burden for patients with chronic illness. It utilizes PST (CBT based problem solving therapy) and patient simulation in a group therapy context. The purpose is to improve self- efficacy, emotional regulation and enhance mastery in caregiver role. Goals for Session 8 1. Weekly check in and review of problems and situations with caregiving and results of homework. 2. Continued skills training through simulation and/or PST: Review of challenges and determine which method is most appropriate. Two-three caregivers engage in simulation or PST in each session. 3. Through simulation and PST, group members identify skills and behavior changes to practice in their caregiving. 4. Review of skills learned overall and progress made with respect to goals for participating in group. 5. Closure: Preparation for ending of Carer???s group and transition to participation in monthly maintenance group. Individual participation: Remy shares a number of successes he had during the week in communicatingwith his mother who has AD. He feels that the group has helped him change his approach and has helped him be more aware of his grief. Individual progress/ homework: Remy has consistently reported on progress in his communication skills for dementia care and has also made progress with self care. Treatment Plan: 1. Participate in the follow up group which will meet 1x per month as based on the [facility]???s CARER???s Program offered through the Memory Program at the [facility]. Sessions will be 90 minutes in duration. 2. Coordination with health care team as needed. DONNELL Olivas documented in this encounter Plan of Treatment Not on file documented as of this encounter Visit Diagnoses Diagnosis Adjustment disorder, unspecified type- Primary documented in this encounter Care Teams Investigation Officer Relationship Specialty Start Date End Date Roxy Armendariz MD [address] [place] [address] PCP - General Urgent Care Medicine 12/04/20 09/09/22 documented as of this encounter
--- OUTSIDE RECORDS SUMMARY | 2023-09-28 02:48 | XMS_ITS | Encounter Summary ---
Author Organization [facility] Address [address] [place] [address] Care Team Providers Care Vp Human Resources Name Role Phone Roxy Armendariz MD Primary Care Provider [phone] Reason for Visit * Reason Comments Acute Stress Adjustment Disorder Encounter Details Date Type Department Care Team (Late st Contact Info) Description 10/15/2021 16:00 EDT Telemedicine [facility] Memory Program - Medical Office Building [address] [place], [place] [phone] Candy Loaiza LICSW [address] [facility] Medical Office Building, [address] [place] [address] Adjustment disorder, unspecified type (Primary [...] Progress Notes * Candy Loaiza LICSW - 10/15/2021 1600 EDT . Pt Name: Remy Cazares Date: 10/15/2021 Time spent:90 minutes DX: (F43.20) Adjustment disorder, [...] utilized to support carers. Individual Notes: Remy focuses on recent communication with his mother's PCP and the feeling he hasthat PCP has given up on trying to treat his mother's ailments. PCP made a referral to hospice and has been recommending medications for end of life pain. Remy doesn't feel his mother is at this point yet and has decided to hold off giving certain medications. Progress: Remy reports it was helpful and validating to process the above situation in the group. He also reports on success with getting time away with his to celebrate their anniversary. Treatment Plan: 1. Participate in the follow up group which will meet 1 time per month for 1 year; [facility]. Sessions will be 90 minutes in duration. 2. Collaboration with health care team as indicated. DONNELL Olivas [facility] Memory Program. documented in this encounter Plan of Treatment Not on file documented as of this encounter Visit Diagnoses Diagnosis Adjustment disorder, unspecified type- Primary documented in this encounter Care Teams Vp Human Resources Relationship Specialty Start Date End Date Roxy Armendariz MD [address] [place] [address] PCP - General Urgent Care Medicine 12/04/20 09/09/22 documented as of this encounter
--- OUTSIDE RECORDS SUMMARY | 2023-09-28 02:48 | XMS_ITS | Encounter Summary ---
Author Organization [facility] Address [address] [place] [address] Care Team Providers Care Project Inspector Name Role Phone Unavailable Primary Care Provider Unavailabl e Encounter Details Date Type Department Care Team (Late st Contact Info) Description 02/28/2007 Results Only [facility] - Maple conversion [address] [place] [address] Sergio Hinton, DO [address] [facility] [address] [place] [id number] Social History Tobacco Use Types Packs/Day Years Used Date Smoking Tobacco: Never Assessed Sex and Gender Information Value Date Recorded Sex Assigned at Not on file Gender Identity Not on file Sexual Orientation Not on file documented as of this encounter Plan of Treatment Not on file documented as of this encounter Procedures Procedure Name Priority Date/Time Associated Diagnosis Comments SURGICAL PATHOLOGY Routine 02/28/2007 0:00 EST documented in this encounter Results * SURGICAL PATHOLOGY (02/28/2007 0:00 EST) Pathology Report: SURGICAL PATHOLOGY REPORT Reports generated via electronic interface contain original data; however they are lacking the format of the original report. Caution should be taken when reading/interpreti ng unformatted reports. Name: ? DEEPA PERERA ? Accession #: ? [id number] ? : ? 1955 (Age: 51) ??M ? Collect Date: ? 02/28/2007 ? Location: ? [facility] ? Receive Date: ? 03/01/2007 ? Provider: SERGIO HINTON DO Copy to: LA DSOUZA MD ? Final Pathologic Diagnosis: A. ?Stomach, antrum, biopsy: 1. ?Gastric antral mucosa, without significant abnormality. 2. ? Helicobacter pylori-like organisms are not present on H & E stain. B. ?Stomach, body, biopsy: 1. ?Gastric fundic mucosa without significant abnormalities. 2. ? Helicobacter pylori-like organisms are not present on H & E stain. C. ?Esophagus, distal, biopsy: 1. ?Squamous and columnar junctional mucosa with mild chronic inflammation and intestinal ??metaplasia. 2. ? Negative for dysplasia. D. ?Esophagus, mid, biopsy: ? 1. ?? Squamous mucosa, without significant abnormalities. Document reviewed and electronically signed by: Estella Gregory MD Report ??Date: 03/05/2007 16:40 By the signature above, the attending physician certifies that he/she has personally conducted a gross and/or microscopic examination of the described specimens and rendered or confirmed the above diagnosis. Specimen(s) Received: A. ?Antrum bx (#1) B. ? Body of stomach bx (#2) C. ? Distal esophagus bx (#3) D. ? Mid esophagus bx (#4) Clinical History: ? Hx Florence's esophagus Gross Description: ? Received in Hollande's fixative labelled Asge and antrum bx are two portions of harrington-pink soft tissue averaging 0.4 x 0.3 x 0.2 cm. ??Submitted in toto as (A). Received in Hollande's fixative labelled [place] and body of stomach bx is a 0.3 x 0.3 x 0.1 cm portion of harrington-pink soft tissue. ??Submitted intact as (B). Received in Hollande's fixative labelled Sage and distal esophagus bx are five portions of harrington-white soft tissue averaging 0.2 x 0.2 x 0.2 cm. ??Submitted in toto as (C1) ??(C2). Received in Hollande's fixative labelled Mobile' and mid esophagus bx is a 0.2 x 0.2 x 0.1 cm portion of harrington-white soft tissue. ??Submitted intact as (D). (Vaishnavi Hart)/[facility] ?? End of Report HEBER YEN 02/28/2007 03/01/2007 20: 16 EST Sergio Hinton DO PATHOLOGY ORDER ELISABETH HEBER YEN [address] [place] [address] documented in this encounter Visit Diagnoses Not on filedocumented in this encounter
--- OUTSIDE RECORDS SUMMARY | 2023-09-28 02:48 | XMS_ITS | Encounter Summary ---
Author Organization [facility] Address [address] [place] [address] Care Team Providers Care Serging Machine Operator Name Role Phone Brandin Koenig MD Primary Care Provider [phone] Encounter Details Date Type Department Care Team (Latest Contact Info) Description 10/26/2017 11:07 EDT - 10/26/2017 23:59 EDT Hospital Encounter [facility] [address] [place] [address] Unknown, Provider, Discharge Disposition: Home or Self Care Social [...] on file documented as of this encounter Medications at Time of Discharge Medication Sig Dispensed Refills Start Date End Date omeprazole (PRILOSEC) 20 mg capsule Take 1 Capsule by mouth daily. documented as of this encounter Discharge Disposition Disposition Code Departure Means Destination Home or Self [facility] documented in this encounter Plan of Treatment Not on file documented as of this encounter Visit Diagnoses Not on filedocumented in this encounter Care Teams Serging Machine Operator Relationship Specialty Start Date End Date Brandin Koenig MD [address] [place] [address] PCP - General 06/09/10 02/02/20 documented as of this encounter
--- OUTSIDE RECORDS SUMMARY | 2023-09-28 02:48 | XMS_ITS | Encounter Summary ---
Author Organization [facility] Address [address] [place] [address] Care Team Providers Care Laborer Heading Name Role Phone Roxy Armendariz MD Primary Care Provider [phone] Reason for Visit * Reason Comments Acute Stress Adjustment Disorder Encounter Details Date Type Department Care Team (Late st Contact Info) Description 11/19/2021 16:00 EDT Telemedicine [facility] Memory Program - Medical Office Building [address] [place], [place] [phone] Candy Loaiza LICSW [address] [facility] Medical Office Building, [address] [place] [address] Adjustment disorder, unspecified type (Primary [...] Progress Notes * Candy Loaiza LICSW - 11/19/2021 1600 EDT . Pt Name: Remy Cazares Date: 11/19/2021 Time spent:90 minutes DX: (F43.20) Adjustment disorder, [...] Candy Loaiza LICSW & Other group members The concept of ???Telemedicine?? has been described to the patient.? Patient has been informed of the anticipated benefits and possible risks.? Patient understands the information provided regardingtelemedicine, has had the opportunity to ask questions about this information, and all questions have been answered to patient???s satisfaction. Patient consents for the use of telemedicine in his/her medical care and authorizes the transmission of any relevant medical information to providers and their staff involved in patient???s medical or mental health care. Patient understands that they maybe responsible for copays, deductible or coinsurance for this service. Group Treatment: This is a once a [...] the 8 week intensive program. There were 5 participants in today???s group. Today???s Goals: 1. Check in and review of problems and situations with caregiving; the review includes inquiry about skills carers have learned in group. Problem solving therapy may be used. 2. Identify additional resources that may be utilized to support carers. Individual Notes: Remy shares evidence that his mom's dementia is progressing. she continues to be on hospice. He describes awareness that he has had a past tendency to avoid being with close friendsor relatives who are dying and isn't sure if this will happen with his mother. He brings up severalchallenges with communication when his mother forgets something that just happened and also a problem with his mom resisting use of the hospital bed. Progress: Actively uses problem solving in the group for the above problem and came to realize thatthis was a landeros not worth fighting and that there is benefit in letting his mom have control oversomething. Treatment Plan: 1. Participate in the follow up group which will meet 1 time per month for 1 year; this is based [facility] CARERS program offered through the Memory Program at the [facility] on the [facility]. Sessions will be 90 minutes in duration. 2. Collaboration with health care team as indicated. DONNELL Olivas [facility] Memory Program. documented in this encounter Plan of Treatment Not on file documented as of this encounter Visit Diagnoses Diagnosis Adjustment disorder, unspecified type- Primary documented in this encounter Care Teams Laborer Heading Relationship Specialty Start Date End Date Roxy Armendariz MD [address] [place] [address] PCP - General Urgent Care Medicine 12/04/20 09/09/22 documented as of this encounter
--- OUTSIDE RECORDS SUMMARY | 2023-09-28 02:48 | XMS_ITS | Encounter Summary ---
Author Organization [facility] Address [address] [place] [address] Care Team Providers Care Instrument Shop Supervisor Name Role Phone Roxy Armendariz MD Primary Care Provider [phone] Reason for Visit * Reason Comments Acute Stress Adjustment Disorder Encounter Details Date Type Department Care Team (Late st Contact Info) Description 04/01/2021 17:00 EST Telemedicine [facility] Memory Program - Medical Office Building [address], [place] [id number] Candy Loaiza LICSW [address] [facility] [address], [address] [place] [address] Adjustment disorder, unspecified type (Primary [...] Progress Notes * Candy Loaiza LICSW - 04/01/2021 1700 EST .Pt Name: Remy Cazares Date: 04/01/2021 Time spent:120 DX: (F43.20) Adjustment disorder, unspecified [...] in patient???s medical or mental health care. Pt was located in [place] Number of Participants: 6 Carer???s Group Progress Note Session 2 Group Treatment: This is an 8 week program for family caregivers that combines therapeutic principles for managing stress and caregiver burden for patients with chronic illness. It utilizes PST (CBT based problem solving therapy) and patient simulation in a group therapy context. The purpose is to improve self- efficacy, emotional regulation and enhance mastery in caregiver role. Goals for Session 2 1. Review week one of Carer???s Program, establish group process 2. Provide education on 7 steps of Problem Solving Therapy (PST) 3. Share challenging situations in the past week, identifying individual and common themes 4. Utilize PST steps to address challenging situations 5. Provide education on dementia Individual participation: Remy focuses on the challenges he has with managing care for his mom while working. He also identifies that he has no time for his personal life. He was open in expressing his grief, fear, and sadness in realizing that his mother is dying and she is the last family member he has living. In addition he identifies specific challenges about his mom wandering in the house atnight and the risk of her falling. Individual progress/ homework: Remy reports that seeing the PST carried out reminds him of problem solving he's done in the past at work. He had not considered before now that this could help him as a family caregiver. Treatment Plan: 1. Participate in the 8 week Carer???s Program offered through the Memory Program at [facility]. 2. Coordination with health care team as needed. Plan: RTC in one week for continuation of group treatment. DONNELL Olivas documented in this encounter Plan of Treatment Not on file documented as of this encounter Visit Diagnoses Diagnosis Adjustment disorder, unspecified type- Primary documented in this encounter Care Teams Instrument Shop Supervisor Relationship Specialty Start Date End Date Roxy Armendariz MD [address] [place] [address] PCP - General Urgent Care Medicine 12/04/20 09/09/22 documented as of this encounter
--- OUTSIDE RECORDS SUMMARY | 2023-09-28 02:48 | XMS_ITS | Encounter Summary ---
Author Organization [facility] Address [address] [place] [address] Care Team Providers Care Creamery Worker Name Role Phone Unavailable Primary Care Provider Unavailabl e Encounter Details Date Type Department Care Team (Late st Contact Info) Description 07/05/1999 Results Only [facility] - Maple conversion [address] [place] [address] Sergio Hinton, DO [address] [facility]N SOLIMAN [address] [place] [id number] Social History Tobacco Use Types Packs/Day Years Used Date Smoking Tobacco: Never Assessed Sex and Gender Information Value Date Recorded Sex Assigned at Not on file Gender Identity Not on file Sexual Orientation Not on file documented as of this encounter Plan of Treatment Not on file documented as of this encounter Procedures Procedure Name Priority Date/Time Associated Diagnosis Comments SURGICAL PATHOLOGY Routine 07/05/1999 15 :10 EDT documented in this encounter Results * SURGICAL PATHOLOGY (07/05/1999 15:10 EDT) Pathology Report: SURGICAL PATHOLOGY REPORT Reports generated via electronic interface contain original data; however they are lacking the format of the original report. Caution should be taken when reading/interpreti ng unformatted reports. Name: ? DEEPA PERERA ? Accession #: ? [id number] ? : ? 1955 (Age: 43) ??M ? Collect Date: ? 07/05/1999 ? Location: ?Receive Date: ? 07/05/1999 ? Provider: SERGIO HINTON DO Copy to: SERGIO HINTON DO LA HOSKINS MD ? Final Pathologic Diagnosis: MICROSCOPIC DIAGNOSIS: ? 1. Stomach, antrum, biopsy: ?- Gastric mucosa with chronic and focal acute gastritis. ?- Esperanza positive for Helicobacter pylori-like ?organisms. ? 2. Distal esophagus, biopsy: ?- Squamous epithelium with mild reactive changes, otherwise ?no pathologic features. ?- Cardiac type gastric mucosa with acute and chronic ?inflammation. ?- No dysplasia or intestinal metaplasia. ?- Esperanza stain positive for Helicobacter-like organisms. ?- PAS stain negative for fungal organisms. ? Document reviewed and electronically signed by: Conversion for ANUM HAMILTON Report ??Date: 07/08/1999 00:00 By the signature above, the attending physician certifies that he/she has personally conducted a gross and/or microscopic examination of the described specimens and rendered or confirmed the above diagnosis. Specimen(s) Received: TISSUE SUBMITTED: ? 1. ??Antrum ? 2. ??Distal esophagus CLINICAL DATA: ? Long time GERD, EGD 15 yrs ago showed ulcers of esophagus, no ? pathology performed Gross Description: GROSS: ? Received in [facility]'s fixative labelled Sage and #1 antrum ? is a harrington soft tissue fragment measuring 0.2 x 0.2 x 0.1 cm. ??The ? specimen is submitted entirely as (A). ? Received in [facility]'s fixative labelled Sage and #2 distal ? esophagus are three soft harrington fragments ranging in size from 0.3 ? x 0.1 x 0.1 cm to 0.5 x 0.1 x 0.1 cm. ??The specimen is entirely ? submitted as (B). ??(Shayy Hyed) /livier ?? End of Report HEBER YEN 07/05/1999 15:1 0 EDT 07/05/1999 15:11 EDT Sergio Hinton DO PATHOLOGY ORDER ELISABETH HEBER YEN [address] [place] [address] documented in this encounter Visit Diagnoses Not on filedocumented in this encounter
--- OUTSIDE RECORDS SUMMARY | 2023-09-28 02:48 | XMS_ITS | Encounter Summary ---
Author Organization [facility] Address [address] [place] [address] Care Team Providers Care Pipe Layer Name Role Phone Roxy Armendariz MD Primary Care Provider [phone] Reason for Visit * Reason Comments Acute Stress Adjustment Disorder Encounter Details Date Type Department Care Team (Late st Contact Info) Description 07/16/2021 16:00 EDT Telemedicine [facility] Memory Program - Medical Office Building [address], [place] [id number] Candy Loaiza LICSW [address] [facility] Medical Office Building, [address] [place] [address] Adjustment disorder, unspecified type (Primary [...] Progress Notes * Candy Loaiza LICSW - 07/16/2021 1600 EDT . Pt Name: Remy Cazares Date: 07/16/2021 Time spent:90 minutes DX: (F43.20) Adjustment disorder, [...] utilized to support carers. Individual Notes: Remy introduces himself to two new people for him, in the group. Shares that his 89 yo mother is being cared for at home, and that she and other members of the household all got COVID. 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 With COVID, they have not had paid care in the home and he has felt more trapped. At present his mother is in the hospitalfor treatment for COVID and he has had to go to the hospital every day to support her. Remy was helpful to another group member sharing his experience and perspective on making decisionsto treat his mother's cancer and other illnesses in spite of her age and dementia, and he still feels good about this decision. Progress: Used group session to process feeling trapped and clarifying the problem associated with this emotion. We did not have time to do a full PST but he indicates openness to using the processown to work on this. Reports that being in the maintenance group offers him significant support which he had missed since the CARERS group ended. Treatment Plan: 1. Participate in the follow up group which will meet 1 time per month for 1 year; this is based [facility] CARERS program offered through the Memory Program at the [facility] on the [facility]. Sessions will be 90 minutes in duration. 2. Collaboration with health care team as indicated. DONNELL Olivas [facility] Memory Program. documented in this encounter Plan of Treatment Not on file documented as of this encounter Visit Diagnoses Diagnosis Adjustment disorder, unspecified type- Primary documented in this encounter Care Teams Pipe Layer Relationship Specialty Start Date End Date Roxy Armendariz MD [address] [place] [address] PCP - General Urgent Care Medicine 12/04/20 09/09/22 documented as of this encounter
--- OUTSIDE RECORDS SUMMARY | 2023-09-28 02:48 | XMS_ITS | Encounter Summary ---
Author Organization [facility] Address [address] [place] [address] Care Team Providers Care Survey Operations Director Name Role Phone Roxy Armendariz MD Primary Care Provider [phone] Reason for Visit * Reason Comments Acute Stress Adjustment Disorder Encounter Details Date Type Department Care Team (Late st Contact Info) Description 05/06/2021 17:00 EST Telemedicine [facility] Memory Program - Medical Office Building [address] [place], [place] [phone] Candy Loaiza LICSW [address] [facility] Medical Office Building, [address] [place] [address] Adjustment disorder, unspecified type (Primary [...] Progress Notes * Candy Loaiza LICSW - 05/06/2021 1700 EST .Pt Name: Remy Cazares Date: 05/06/2021 Time spent:120 minutes DX: (F43.20) Adjustment disorder, unspecified type (primary encounter diagnosis) TELEMEDICINE VIDEO VISIT Today's visit was provided through telemedicine video conferencing: The location of the patient :Home, [place] The location of the provider: Office, [place] The following staff and their role [...] participants: 6 Carer???s Group Progress Note Session 7 Group Treatment: This is an 8 week program for family caregivers that combines therapeutic principles for managing stress and caregiver burden for patients with chronic illness. It utilizes PST (CBT based problem solving therapy) and patient simulation in a group therapy context. The purpose is to improve self- efficacy, emotional regulation and enhance mastery in caregiver role. Goals for Session 7 1. Weekly check in and review of problems and situations with caregiving and result of homework. 2. Carer???s identify new skills they have learned and practiced. 3. Skills training through simulation and/or PST: Review of challenges and determine which method is most appropriate. Two-three caregivers engage in simulation or PST in each session. 4. Through simulation and PST, group members identify skills and behavior changes to practice in their caregiving. 5. Group members are asked to reflect on their level of burden and ability to cope. Individual participation: Remy shares he had several successes in supporting his mother. This includes using communication skills to support her to attend a zoom medical appointment. Another is enlisting his mother to tear up papers which needed to be destroyed and which engaged her in a positive way. He is feeling sadness and loss after learning that her dementia has worsened. Individual progress/ homework: Remy notes having successes and feels more optimistic about his ability to cope.He continues to be supportive of others in the group especially re: self care. Treatment Plan: 1. Participate in the 8 week Carer???s Program offered through the Memory Program at [facility]. 2. Coordination with health care team as needed. Plan: RTC in one week for continuation of group treatment. DONNELL Olivas documented in this encounter Plan of Treatment Not on file documented as of this encounter Visit Diagnoses Diagnosis Adjustment disorder, unspecified type- Primary documented in this encounter Care Teams Survey Operations Director Relationship Specialty Start Date End Date Roxy Armendariz MD [address] [place] [address] PCP - General Urgent Care Medicine 12/04/20 09/09/22 documented as of this encounter
--- OUTSIDE RECORDS SUMMARY | 2023-09-28 02:48 | XMS_ITS | Encounter Summary ---
Author Organization [facility] Address [address] [place] [address] Care Team Providers Care Fur Finisher Seamstress Name Role Phone Brandin Koenig MD Primary Care Provider [phone] Encounter Details Date Type Department Care Team (Late st Contact Info) Description 10/26/2017 Historical Results Only [facility] - [facility] Radiology Results [address] [place] [address] Lorenzo Blakely PA-C [address] [facility] [address] [place] [address] Social History Tobacco Use Types Packs/Day Years [...] Procedure Name Priority Date/Time Associated Diagnosis Comments XR WRIST LEFT 3 OR MORE VIEWS 10/26/2017 10:06 EDT documented in this encounter Results * XR WRIST LEFT 3 OR MORE VIEWS (10/26/2017 10:06 EDT) Anatomical Region Laterality Modality Upper Extremities Left Other 10/26/2017 10:0 6 EDT Narrative 10/26/2017 10:09 EDT ? EXAM: RADIOLOGY/WRIST LEFT 3 + VIEWS ?EX. D/ (0957) ? CLINICAL INFORMATION: ? M67.432 GANGLION CYST OF WRIST, LEFT ? INDICATION: M67.432 GANGLION CYST OF WRIST, LEFT LEFT HAND GANGLION ? CYST ? TECHNIQUE: 4 views left wrist. ? COMPARISON: None. ? FINDINGS: The left wrist is well aligned. No acute fractures seen. ? The distal radius and ulna appear intact. No scaphoid injury is ? visible. No destructive bone changes are seen. Joint space narrowing ? is seen at the base of the thumb, with osteophyte formation. ? IMPRESSION: ? 1. No acute osseous injury detected. ? 2. Base of thumb osteoarthrosis. ? REPORT SIGNED IN OTHER VENDOR SYSTEM 10/26/2017 ?Reported By: Evan Goldstein MD ? CC: ? Transcribed Date/Time: 10/26/2017 (1009) ? City Plant Supervisor: ? Printed Date/Time: 08/25/2018 (0722) ? PAGE 1 ? Signed Report ? Procedure Note Evan Goldstein MD - 01/10/2019 EXAM: RADIOLOGY/WRIST LEFT 3 + VIEWS EX. D/ (0957) CLINICAL INFORMATION: M67.432 GANGLION CYST OF WRIST, LEFT INDICATION: M67.432 GANGLION CYST OF WRIST, LEFT LEFT HAND GANGLION CYST TECHNIQUE: 4 views left wrist. COMPARISON: None. FINDINGS: The left wrist is well aligned. No acute fractures seen. The distal radius and ulna appear intact. No scaphoid injury is visible. No destructive bone changes are seen. Joint spacenarrowing is seen at the base of the thumb, with osteophyte formation. IMPRESSION: 1. No acute osseous injury detected. 2. Base of thumb osteoarthrosis. REPORT SIGNED IN OTHER VENDOR SYSTEM 10/26/2017 Reported By: Evan Goldstein MD CC: Transcribed Date/Time: 10/26/2017 (1009) City Plant Supervisor: Printed Date/Time: 08/25/2018 (0730) PAGE 1 Signed Report Lorenzo Blakely PA-C IMG DIAGNOSTIC VINCENT GING ORDERABLES documented in this encounter Visit Diagnoses Not on filedocumented in this encounter Care Teams Fur Finisher Seamstress Relationship Specialty Start Date End Date Brandin Koenig MD [address] [place] [address] PCP - General 06/09/10 02/02/20 documented as of this encounter
--- OUTSIDE RECORDS SUMMARY | 2023-09-28 02:48 | XMS_ITS | Encounter Summary ---
Author Organization [facility] Address [address] [place] [address] Care Team Providers Care Service And Repair Supervisor Name Role Phone Brandin Koenig MD Primary Care Provider [phone] Reason for Visit * Reason Comments New Patient Visit Skin Abnormality. Po ssible skin check. Spot of concern above eye. Encounter Details Date Type Department Care Team (Late st Contact Info) Description 12/30/2013 9:30 EDT Office Visit [facility] Dermatology 3rd [address] [address] [place], [place] [address] [address] Sun-damaged skin (Primary Dx); History of actinic keratoses; Multiple benign nevi; Seborrheic keratosis Social History Tobacco Use Types Packs/Day Years Used Date Smoking Tobacco: Former Smokeless Tobacco: Never Alcohol Use Standard Drinks/Week Comments Yes 0 (1 standard drink = 0.6 oz pur e alcohol) reg Sex and Gender Information Value Date Recorded Sex Assigned at Not on file Gender Identity Not on file Sexual Orientation Not on file documented as of this encounter Discharge Diagnoses Diagnosis 692.74 CHR SOLAR SKIN DAMAGE NOS[ICD-9-CM] V13.3 PERS HX SKIN/SUBCUTAN TIS DIS[ICD-9-CM] 702.19 SEBORRHEIC KERATOSIS NOS[ICD-9-CM] 216.5 BENIGN LANETTE SKIN TRUNK[ICD-9-CM] documented in this encounter Patient Instructions * Patient Instructions* Verito Reeves PA - 12/30/2013 9:45 EDT Recommendations for Sun Protection Ultraviolet (UV) radiation is a known carcinogen (cancer-causing agent) and is primarily responsible for most skin cancers, including Basal Cell Carcinoma, Squamous Cell Carcinoma, and many Melanomas. UV radiation also rapidly ages the skin, leading to wrinkles, uneven color, and poor texture. Minimizing UV exposure has been shown in multiple studies to decrease the likelihood of developing cancers and pre-cancers of the skin, as well as improve overall appearance. To minimize UV exposure: 1) Avoid exposure to sunlight during the middle of the day (10am to 4pm). Seek shade when outside during these hours. Limit outdoor activities to courtroom deputy or calendar clerk and/or evening hours when the sunlight is less intense. Remember that UV is reflected from water and snow, and can pass through window glass. It is still possible to get burned during cloudy weather and in the winter months. You can check the forecast for the UV Index in your area at most weather sites online. If the UV index is 3 or higher, sun protection/avoidance is recommended. 2) Wear protective clothing. Hats with wide brims that cover the ears and neck, sunglasses (sun exposure increases your risk for cataracts), long-sleeved shirts, long pants, and closed-top shoes offer good protection. Many makers of outdoor clothing test their fabrics for UV Protection Factor (UPF), which is a guide to the level of protection a particular item of clothing should provide. In general, loose weaves (Cotton) and computer technical specialist-colored fabrics offer less protection than tighter weaves or darker/thicker fabrics. It is possible to get a sunburn through clothing, especially if it is wet. 3) Use sunscreen on exposed areas. Choose a sunscreen that has a Sun Protection Factor (SPF) of 30+or higher. Apply the sunscreen generously (so much that you can barely rub it in) to exposed areas 30 minutes before sun exposure. Reapply every 2-3 hours, especially if you are in water or sweating.If you tend to break out from sunscreen, choose a sunscreen designed for Sensitive Skin and/or one with physical blocking agents, such as Zinc Oxide and Titanium Dioxide. For vigorous activity, look for Sport sunscreens, which are resistant to sweating. 4) Avoid artificial sources of UV, such as tanning beds or sun lamps. The UV emitted by these devices is just as damaging, if not more so, than natural sunlight. There is a well-documented increase in the incidence of all common skin cancers in frequent tanning bed users. Other considerations: Vitamin D: Exposure to UV light is one of the ways your body gets Vitamin D, a necessary nutrient. Other sources are from the diet and/or dietary supplements. If you are actively avoiding the sun, itmay be advisable to discuss Vitamin D supplementation with your Primary Care Provider (PCP). In general, taking a supplement of 1,000 to 2,000 International Units (IU) of Vitamin D3 is safe and well-tolerated in individuals who get minimal sun exposure and have normal kidney function. However, moreor less Vitamin D may be recommended, depending on your individual needs, and the use of such supplements should be discussed with your PCP. For more information about sun protection and skin cancer: www.skincancer.org Recommended sunscreens: Chemical sunscreen Neutrogena Ultra Sheer Dry Touch (helioplex) Aveeno (same sunscreen as in Neutrogena) Coppertone Sport La Rubén-Posay Anthelios (mexoryl -good UVA and UVB) Vichy (mexoryl - available in Raad) Gel formulations good for hair bearing skin Bullfrog Alcohol based - goes on quickly and good for skin with hair Solbar Physical sunblock good for sensitive skin (titanium dioxide and zinc oxide chemical/fragrance free) Blue Lizard sensitive COTZ TiZO (comes in tinted form) Neutrogena pure and free baby or sensitive Recommended sun protection clothing websites www.sunprecautions.com www.coolibar.com www.dianne.[employer] Energy www.SunGard.[employer] documented in this encounter Progress Notes * eVrito Reeves PA - 12/30/2013 0946 EDT The attending physician was available for this visit Problem Encounter Diagnoses Name Primary? Sun-damaged skin Yes ??? History of actinic keratoses ??? Multiple benign nevi ??? Seborrheic keratosis SUBJECTIVE Chief Complaint: Chief Complaint Patient presents with ??? New Patient Visit Skin Abnormality. Possible skin check. Spot of concern above eye. Mr. Cazares is a 58 y.o. male with a history of history of multiple sunburns and avid outdoor lifestyle who presents for follow up having had a few spots treated with liquid nitrogen on his face in the past and would like a full skin exam. Last Dermatology office visit: One year ago at the health clinic The patient has not noticed any scabbing, bleeding changing growths that he is concerned about. Thepatient admits not wearing sunscreen as diligently as he knows he should but tries to check him self on a somewhat regular basis. He is here for a full skin exam with the above stated history. Please note the past, present, family medical and social histories as well as ROS were reviewed by me today as documented in Prism. OBJECTIVE VS: There were no vitals taken for this visit. Physical Exam: Complete Cutaneous Exam On physical examination, in general, Mr. Cazares is a male who is well-groomed, obese, well-nourished and appears stated age and is is in no apparent distress. He is alert and oriented to person, place and time. He has Witt type II- III skin. Complete cutaneous examination of the head, including the scalp and face, neck, back, chest, including breasts and axillae, abdomen, groin, buttocks, intertriginous areas, and all four extremities were examined. The examination was normal with the addition of the following comments: Diffusely scattered over sun exposed surfaces the patient has numerous hypo and hyper pigmented macules as well as some stuck on papules scattered over the body. No gritty macules noted today Skin: There were no lesions suspicious for malignancy. ASSESSMENT AND PLAN Remy was seen today for new patient visit. Diagnoses and associated orders for this visit: Sun-damaged skin History of actinic keratoses - none today Benign nevi Seborrheic keratosis Patient education and reassurance. The importance of sunscreen use, the ABCDE's of melanoma discussed as well as the importance of the ugly duckling rule and self skin exams monthly of which the patient showed a good understanding. The patient will follow up every couple of years for a skin exam thang the interim should problems arise. KAYLA Garcia 12/30/2013 9:46 * Marisel Ornelas - 12/30/2013 0921 EDT Review of Systems Constitutional: Negative for fever, fatigue and unexpected weight change. HENT: Negative for mouth sores. Eyes: Negative for pain. Respiratory: Negative for cough and shortness of breath. Cardiovascular: Negative for chest pain and palpitations. Gastrointestinal: Negative for nausea, vomiting, abdominal pain, diarrhea, constipation and blood in stool. Genitourinary: Negative for dysuria, frequency and hematuria. Musculoskeletal: Positive for myalgias and arthralgias. Negative for joint swelling and muscle stiffness in the morning. Skin: Negative for rash. Neurological: Negative for numbness and headaches. Endo/Heme/Allergies: Does not bruise/bleed easily. Psychiatric/Behavioral: Negative for sleep disturbance. The patient is not nervous/anxious. DAIJA Kirby 12/30/2013 9:29 Marisel Ornelas documented in this encounter Plan of Treatment Not on file documented as of this encounter Visit Diagnoses Diagnosis Sun-damaged skin- Primary Other dermatitis due to solar radiation History of actinic keratoses Personal history of diseases of skin and subcutaneous tissue Multiple benign nevi Benign neoplasm of skin, site unspecified Seborrheic keratosis Other seborrheic keratosis documented in this encounter Discontinued Medications Medication Sig Discontinue Reason Start Date End Da te clonAZEPAM (KLONOPIN) 0.5 mg tablet Take 0.5 mg by mouth daily. 06/09/2010 12/30/2013 documented as of this encounter Care Teams Service And Repair Supervisor Relationship Specialty Start Date End Date Brandin Koenig MD [address] [place] [id number] PCP - General 06/09/10 02/02/20 documented as of this encounter
--- OUTSIDE RECORDS SUMMARY | 2023-09-28 02:48 | XMS_ITS | Encounter Summary ---
Author Organization [facility] Address [address] [place] [address] Care Team Providers Care Lock Plater Name Role Phone Roxy Armendariz MD Primary Care Provider [phone] Reason for Visit * Reason Comments Acute Stress Adjustment Disorder Encounter Details Date Type Department Care Team (Late st Contact Info) Description 03/25/2021 17:00 EST Telemedicine [facility] Memory Program - Medical Office Building [address] [place], [place] [phone] Candy Loaiza LICSW [address] [facility] Medical Office Building, [address] [place] [address] Adjustment disorder, unspecified type (Primary [...] Progress Notes * Candy Loaiza LICSW - 03/25/2021 1700 EST .Pt Name: Remy Cazares Date: 03/25/2021 Time spent:120 DX: (F43.20) Adjustment disorder, unspecified type (primary encounter diagnosis) TELEMEDICINE VIDEO VISIT Today's visit was provided through telemedicine video conferencing: I have reviewed the appropriateness of using video technology with the patient with regards to today's visit. The location of the patient : Home Patient location state: Visit Location State: [place] The location of the provider: Office Provider location state: Visit Location State: [place] The following people and their roles were present for today's visit: Appointment Provider: Candy Loaiza LICSW Pt and other group members DONNELL Medeiros Number of participants: 6 Carer???s Group Progress Note Session 1 Group Treatment: This is an 8 week program for family caregivers that combines therapeutic principles for managing stress and caregiver burden for patients with chronic illness. It utilizes PST (CBT based problem solving therapy) and patient simulation in a group therapy context. The purpose is to improve self- efficacy, emotional regulation and enhance mastery in caregiver role. Goals for Session 1: 1. Review the Carer???s Program 2. Begin to understand the fundamentals of group therapy 3. Establish ground rules ( confidentiality and treatment adherence) 4. Introduction of group members and group facilitators 5. Provide education on CBT and dementia 6. Generate a list of problems faced by each caregiver 7. 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 He and his recently had to move in with her because she was declining and had pneumonia. 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 He endorses stress and burden, and connects with education on dementia sxs. Individual progress/ homework: One of his goals is to learn from others. He also identifies a need to find a way to get a break. He reports the group helps him feel more hopeful. Treatment Plan: 1. Participate in the 8 week Carer???s Program offered through the Memory Program at [facility]. 2. Coordination with health care team as needed. Plan: RTC in one week for continuation of group treatment. DONNELL Olivas documented in this encounter Plan of Treatment Not on file documented as of this encounter Visit Diagnoses Diagnosis Adjustment disorder, unspecified type- Primary documented in this encounter Care Teams Lock Plater Relationship Specialty Start Date End Date Roxy Armendariz MD [address] [place] [address] PCP - General Urgent Care Medicine 12/04/20 09/09/22 documented as of this encounter
--- OUTSIDE RECORDS SUMMARY | 2023-09-28 02:48 | XMS_ITS | Encounter Summary ---
Author Organization [facility] Address [address] [place] [address] Care Team Providers Care Clinical Practitioner Name Role Phone Roxy Armendariz MD Primary Care Provider [phone] Reason for Visit * Reason Comments Acute Stress Adjustment Disorder Encounter Details Date Type Department Care Team (Late st Contact Info) Description 04/22/2021 17:00 EST Telemedicine [facility] Memory Program - Medical Office Building [address] [place], [place] [phone] Candy Loaiza LICSW [address] [facility] Medical Office Building, [address] [place] [address] Adjustment disorder, unspecified type (Primary [...] Progress Notes * Candy Loaiza LICSW - 04/22/2021 1700 EST .Pt Name: Remy Cazares Date: 04/22/2021 Time spent:120 DX: (F43.20) Adjustment disorder, unspecified [...] participants: 6 Carer???s Group Progress Note Session 5 Group Treatment: This is an 8 week program for family caregivers that combines therapeutic principles for managing stress and caregiver burden for patients with chronic illness. It utilizes PST (CBT based problem solving therapy) and patient simulation in a group therapy context. The purpose is to improve self- efficacy, emotional regulation and enhance mastery in caregiver role. Goals for Session 5 1. Weekly check in and review of problems and situations with caregiving and result of homework. 2. Skills training through simulation: the SP and facilitators review role- playing instructions. 3. Two-three caregivers engage in simulation in each session. 4. Through simulation, group members identify skills and behavior changes to practice in their caregiving. Individual participation: new things emerged this week. Describes some difficult interactions with his mom and having to intervene physically to ensure his mom's safety. A positive is that he and his made time to go away together. Another is that the tx for his mom's cancer is not going to be as difficult as expected. Individual progress/ homework: Reports the simulation helped him be aware of his investment in trying to help his mom do things she used to do without difficulty, and of the related guilt. I learneda lot. Treatment Plan: 1. Participate in the 8 [...] Primary documented in this encounter Care Teams Clinical Practitioner Relationship Specialty Start Date End Date Roxy Armendariz MD [address] [place] [address] PCP - General Urgent Care Medicine 12/04/20 09/09/22 documented as of this encounter
--- OUTSIDE RECORDS SUMMARY | 2023-09-28 02:48 | XMS_ITS | Encounter Summary ---
Author Organization [facility] Address [address] [place] [address] Care Team Providers Care Tacking Machine Operator Name Role Phone Roxy Armendariz MD Primary Care Provider [phone] Reason for Referral * Radiology Services (Routine/Next Available) - Authorization Not Required Specialty Diagnoses / Procedures Referred By Contac t Referred To Contact Diagnoses Left groin pain Procedures US ABDOMEN LIMITED Roxy Armendariz MD [address] [place] [phone] Referral ID Status Reason Start Date Expiration Date Visits Requested Visits Authorized [id number] Authorization Not Required 12/03/2020 1 1 Reason for Visit * Radiology Services (Routine/Next Available) - Authorization Not Required Specialty Diagnoses / Procedures Referred By Contac t Referred To Contact Diagnoses Left groin pain Procedures US ABDOMEN LIMITED Roxy Armendariz MD [address] [place] [phone] Referral ID Status Reason Start Date Expiration Date Visits Requested Visits Authorized [id number] Authorization Not Required 12/03/2020 1 1 Encounter Details Date Type Department Care Team (Latest Contact Info) Description 12/23/2020 12:18 EDT - 12/23/2020 23:59 EDT Hospital Encounter Kellee Castro Ultrasound [address] [place] [address] Left groin pain Discharge Disposition: Home or Self Care Social [...] (1,000 unit) capsule Take by mouth. 11/23/2020 omeprazole (PRILOSEC) 20 mg capsule Take 1 Capsule by mouth daily. sildenafiL (REVATIO) 20 mg tablet Take by mouth as needed. 11/23/2020 documented as of this encounter Discharge Disposition Disposition Code Departure Means Destination Home or Self Care documented in this encounter Plan of Treatment Not on file documented as of this encounter Procedures Procedure Name Priority Date/Time Associated Diagnosis Comments US ABDOMEN LIMITED Routine 12/23/2020 12 :47 EDT Left groin pain documented in this encounter Results * US ABDOMEN LIMITED (12/23/2020 12:47 EDT) Anatomical Region Laterality Modality Abdomen, Body Ultrasound 12/23/2020 12:5 5 EDT Impressions 12/23/2020 12:55 EDT Fat-containing left inguinal hernia. Narrative 12/23/2020 12:55 EDT US ABDOMEN LIMITED ??12/23/2020 1:00 PM SIGNS AND SYMPTOMS/COMMENTS: Left groin discomfort, suspect inguinal hernia COMPARISON: None available TECHNIQUE: Grayscale and Doppler ultrasound evaluation of the left groin was performed. FINDINGS: There is a fat-containing left inguinal hernia which slightly increases with Valsalva and slightly decreased with rest. Hernia measures approximately 1.3 cm neck. The hernia sac measures roughly 3.5 x 0.9 cm. Hernia appears to result in the medial to the inferior epigastric vessels. Procedure Note Sloane Bueno MD - 12/23/2020 US ABDOMEN LIMITED 12/23/2020 1:00 PM SIGNS AND SYMPTOMS/COMMENTS: Left groin discomfort, suspect inguinalhernia COMPARISON: None available TECHNIQUE: Grayscale and Doppler ultrasound evaluation of the left groinwas performed. FINDINGS: There is a fat-containing left inguinal hernia which slightly increaseswith Valsalva and slightly decreased with rest. Hernia measuresapproximately 1.3 cm neck. The hernia sac measures roughly 3.5 x 0.9 cm.Hernia appears to result in the medial to the inferior epigastricvessels. IMPRESSION Fat-containing left inguinal hernia. Roxy Armendariz MD IMG US ORDERABLES documented in this encounter Visit Diagnoses Diagnosis Left groin pain Abdominal pain, left lower quadrant documented in this encounter Care Teams Tacking Machine Operator Relationship Specialty Start Date End Date Roxy Armendariz MD [address] [place] [address] PCP - General Urgent Care Medicine 12/04/20 09/09/22 documented as of this encounter
--- OUTSIDE RECORDS SUMMARY | 2023-09-28 02:48 | XMS_ITS | Encounter Summary ---
Author Organization [facility] Address [address] [place] [address] Care Team Providers Care Chemical Test Engineer Name Role Phone Roxy Armendariz MD Primary Care Provider [phone] Reason for Visit * Reason Comments Acute Stress Adjustment Disorder Encounter Details Date Type Department Care Team (Late st Contact Info) Description 04/15/2021 17:00 EST Telemedicine [facility] Memory Program - Medical Office Building [address] [place], [place] [phone] Candy Loaiza LICSW [address] [facility] Medical Office Building, [address] [place] [address] Adjustment disorder, unspecified type [...] Progress Notes * Candy Loaiza LICSW - 04/15/2021 1700 EST .Pt Name: Remy Cazares Date: 04/15/2021 Time spent:120 DX: (F43.20) Adjustment disorder, unspecified [...] participants: 6 Carer???s Group Progress Note Session 4 Group Treatment: This is an 8 week program for family caregivers that combines therapeutic principles for managing stress and caregiver burden for patients with chronic illness. It utilizes PST (CBT based problem solving therapy) and patient simulation in a group therapy context. The purpose is to improve self- efficacy, emotional regulation and enhance mastery in caregiver role. Goals for Session 4 1. Group therapy continues to elicit caregiving challenges and carers response to them 2. Continue to learn and utilize PST method 3. Participants implement developed solutions at home 4. The tool of simulation is introduced. Members are provided with information on process, structure and an interaction between carer and care recipient is demonstrated. Individual participation: Remy shares that his mother seems to be deteriorating. A big challenge this week again is that she resists care form outside caregivers, and this puts more stress on Remy sothat he is having difficulty focusing on his job. He also is upset that one of his mother's medicalproviders seems to be writing off treatment for her other medical problems. Individual progress/ homework: Remy reports it was helpful to observe and participate in the PST process on the issues of finding paid care. He offered some helpful suggestions to another group members. At end of group reports it is helpful to be in the group. Treatment Plan: 1. Participate in the 8 week Carer???s Program offered through the Memory Program at [facility]. 2. Coordination with health care team as needed. Plan: RTC in one week for continuation of group treatment. DONNELL Olivas documented in this encounter Plan of Treatment Not on file documented as of this encounter Visit Diagnoses Diagnosis Adjustment disorder, unspecified type- Primary documented in this encounter Care Teams Chemical Test Engineer Relationship Specialty Start Date End Date Roxy Armendariz MD [address] [place] [address] PCP - General Urgent Care Medicine 12/04/20 09/09/22 documented as of this encounter
[2023-09-28 09:22] LABS: Abs Immature Grans 0.12 10^3/uL (0.0-0.06); Absolute Basophil Count 0.08 10^3/uL (0.0-0.2); Absolute Eosinophil Count 0.22 10^3/uL (0.0-0.7); Absolute Monocyte Count 0.71 10^3/uL (0.1-0.8); Absolute Neutrophil Count 5.05 10^3/uL (1.2-6.7); Eosinophils % 2.6 %; HCT 42.3 % (40.0-50.0); HGB 14.7 g/dL (13.5-17.5); Immature Grans % 1.4 %; Lymphocytes % 26.3 %; MCH 29.9 pg (27.0-33.0); MCHC 34.8 % (32.0-36.0); MCV 86 fL (80-95); MPV 9.9 fL (8.0-11.0); Monocytes % 8.5 %; Neutrophils % 60.2 %; Platelet Count 196 10^3/uL (130-400); RBC 4.92 10^6/uL (4.36-5.78); RDW 13.2 % (11.8-14.1); RDW-SD 40.9 fL; WBC 8.38 10^3/uL (4.4-10.8)
[2023-09-28 09:51] LABS: Hemoglobin A1C 5.3 % (<5.7)
[2023-09-28 09:56] LABS: ALT 38 U/L (16-63); AST 23 U/L (15-37); Albumin 3.6 g/dL (3.4-5.0); Alkaline Phosphatase 95 U/L (46-116); Anion Gap 7.5 mmol/L (3-11); BUN 25 mg/dL (7-18); Bilirubin, Total 0.44 mg/dL (0.2-1.0); CO2 28.5 mmol/L (21.0-32.0); CREATININE 1.1 mg/dL (0.70-1.30); Calcium 9.1 mg/dL (8.5-10.1); Calculated LDL 115 mg/dL (<100); Chloride 106 mmol/L (98-107); Cholesterol 183 mg/dL (<200); Glucose 104 mg/dL (74-106); HDL Cholesterol 51 mg/dL (40-60); Potassium 4.2 mmol/L (3.5-5.1); Sodium 142 mmol/L (136-145); Total Protein 6.9 g/dL (6.4-8.2); Triglyceride 89 mg/dL (<150)
[2023-09-28 20:35] LABS: PSA, Screening 0.8 ng/mL (<=4.5)
== END 2023-09-28 02:47 | disposition home or self-care (01) ==
LOC: LBO 02:46
PROVIDERS: PCP Physical Therapy Assistant; Visit Provider Nurse Practitioner Family
DX: Z13.6 Encounter for screening for cardiovascular disorders (principal); Z68.35 Body mass index [BMI] 35.0-35.9, adult; Z12.5 Encounter for screening for malignant neoplasm of prostate; E78.2 Mixed hyperlipidemia; K22.70 Barrett's esophagus without dysplasia
CPT/HCPCS: 36415; 80053; 80061; 84153; 83036; 85025